=== PATIENT | female | born 1955 | race African-American/Black ===

== ENCOUNTER 2016-08-12 12:22 | Emergency (ER) | payer MEDICARE ==
[2016-07-14 09:51] VITALS: BMI 30.5
[~2016-08-12 12:22] MED LIST: ACETAMINOPHEN325 MG PO; ACIDOPHILUS LAC1 CAP PO; ALPHAGAN P 0.155 ML EACH EYE; BAYER CHEWABLE81 MG PO; BENAZEPRIL HCL10 MG PO; CHROMAGEN CAPLE1 TAB PO; COLACE100 MG PO; COREG12.5 MG PO; COREG6.25 MG; COREG6.25 MG PO; CYCLOBENZAPRINE5 MG PO; DULCOLAX5 MG PO; FARXIGA10 MG PO; FERREX 150 PLUS1 CAP PO; FUROSEMIDE20 MG PO; GLIPIZIDE10 MG PO; HUMALOG 30100 UNITS/ SC; IMITREX50 MG PO; K-DUR20 MEQ PO; K-TAB10 MEQ PO; LEVAQUIN500 MG PO; LEVEMIR100 U/M1 SC; LOTENSIN10 MG PO; LUMIGAN 0.01%2.5 ML EACH EYE; LYRICA75 MG PO; MAXZIDE 75/501 TAB PO; METOPROLOL TART50 MG PO; MIRALAX17 GM PO; MOBIC7.5 MG PO; NEURONTIN600 MG PO; NORCO 10/325 TA1 TA1 PO; NORVASC10 MG PO; NORVASC5 MG PO; NOVOLIN 70/30 110 ML SQ; OMNIPRED5 ML EACH EYE; PERCOCET 5-3251 TAB PO; PLAVIX75 MG PO; PROTONIX40 MG PO; SYSTANE 0.3-0.4%5 ML EACH EYE; TYLENOL W/CODEI1 TAB PO; VALIUM10 MG PO; VITAMIN D31000 UNIT PO; ZANTAC150 MG PO; ZOCOR40 MG PO
[2016-08-12 13:20] LABS: BASOPHILS 0.2 % (0.0-2.0); EOSINOPHILS 1.8 % (0-7); HEMATOCRIT 29.8 % (36.0-48.0); HEMOGLOBIN 9.5 g/dL (12-16); LYMPHOCYTES 47.2 % (15-50); MCH 27.2 pg (26.0-34.0); MCHC 31.9 g/dL (31.0-37.0); MCV 85.4 fL (80.0-100.0); MEAN PLATELET VOLUME 9.8 fL (7.4-10.4); MONOCYTES 5.2 % (2-11); NEUTROPHILS 45.6 % (40-80); PLATELET COUNT 270 10x3/uL (130-400); RBC 3.49 10x6/uL (4.00-5.40); RDW 14.8 % (11.5-14.5); WBC 4.4 10x3/uL (4.8-10.8)
[2016-08-12 13:34] LABS: ALBUMIN 3.3 g/dL (3.4-5.0); ANION GAP 10.1 mmol/L (8-16); BILIRUBIN - TOTAL 0.24 mg/dL (0.2-1.3); CALCIUM 9.3 mg/dL (8.5-10.1); CARBON DIOXIDE 30.3 mmol/L (21.0-32.0); CREATININE - SERUM 1.3 mg/dL (0.6-1.3); POTASSIUM - SERUM 4.4 mmol/L (3.5-5.1); PROTEIN - SERUM 6.9 g/dL (6.4-8.2)
[2016-08-12 13:44] LABS: MAGNESIUM - SERUM 2.2 mg/dL (1.8-2.4)
[2016-08-12 13:45] LABS: TROPONIN-I 0.047 ng/mL (0.000-0.060)
[2016-08-12 16:38] LABS: UDS - AMPHET NEGATIVE QUAL (NEGATIVE); UDS - BARB NEGATIVE QUAL (NEGATIVE); UDS - BENZO NEGATIVE QUAL (NEGATIVE); UDS - COCAINE NEGATIVE QUAL (NEGATIVE); UDS - METH NEGATIVE QUAL (NEGATIVE); UDS - OPIATE NEGATIVE QUAL (NEGATIVE); UDS - PCP NEGATIVE QUAL (NEGATIVE); UDS - THC NEGATIVE QUAL (NEGATIVE)
[2016-08-12 16:48] LABS: APPEARANCE CLEAR (CLEAR); BILIRUBIN NEGATIVE (NEGATIVE); COLOR YELLOW (YELLOW); GLUCOSE NEGATIVE (NEGATIVE); KETONE NEGATIVE (NEGATIVE); LEUKOCYTE ESTERASE NEGATIVE (NEGATIVE); NITRITE NEGATIVE (NEGATIVE); PROTEIN 1+ mg/dL (NEGATIVE); UROBILINOGEN NORMAL (NORMAL)
== END 2016-08-12 17:39 | disposition home or self-care (01) ==
LOC: D.ER 12:22
PROVIDERS: Emergency Medicine; Nurse Practitioner Family
DX: I10 Essential (primary) hypertension (principal); E11.9 Type 2 diabetes mellitus without complications; Z79.4 Long term (current) use of insulin; M25.511 Pain in right shoulder; G62.9 Polyneuropathy, unspecified; R00.1 Bradycardia, unspecified

== ENCOUNTER 2016-08-14 13:56 | Emergency (ER) | payer MEDICARE ==
[2016-07-14 09:51] VITALS: BMI 30.5
[2016-08-14 15:22] LABS: BASOPHILS 0.2 % (0.0-2.0); EOSINOPHILS 1.2 % (0-7); HEMATOCRIT 34.2 % (36.0-48.0); HEMOGLOBIN 10.8 g/dL (12-16); IMMATURE GRANULOCYTES 0.2 % (0-5); LYMPHOCYTES 28.4 % (15-50); MCH 27.5 pg (26.0-34.0); MCHC 31.6 g/dL (31.0-37.0); MEAN PLATELET VOLUME 10.3 fL (7.4-10.4); MONOCYTES 7.3 % (2-11); NEUTROPHILS 62.7 % (40-80); PLATELET COUNT 276 10x3/uL (130-400); RBC 3.93 10x6/uL (4.00-5.40); RDW 14.6 % (11.5-14.5); WBC 6.1 10x3/uL (4.8-10.8)
[2016-08-14 15:38] LABS: ALBUMIN 3.7 g/dL (3.4-5.0); BILIRUBIN - TOTAL 0.24 mg/dL (0.2-1.3); CALCIUM 9.6 mg/dL (8.5-10.1); CARBON DIOXIDE 29.9 mmol/L (21.0-32.0); CREATININE - SERUM 1.4 mg/dL (0.6-1.3); POTASSIUM - SERUM 3.9 mmol/L (3.5-5.1); PROTEIN - SERUM 7.7 g/dL (6.4-8.2)
[2016-08-14 15:50] LABS: TROPONIN-I 0.036 ng/mL (0.000-0.060)
[2016-08-14 15:54] LABS: APPEARANCE CLEAR (CLEAR); BILIRUBIN NEGATIVE (NEGATIVE); COLOR YELLOW (YELLOW); GLUCOSE NEGATIVE (NEGATIVE); KETONE NEGATIVE (NEGATIVE); LEUKOCYTE ESTERASE NEGATIVE (NEGATIVE); NITRITE NEGATIVE (NEGATIVE); PROTEIN TRACE mg/dL (NEGATIVE); UROBILINOGEN NORMAL (NORMAL)
== END 2016-08-14 18:20 | disposition home or self-care (01) ==
LOC: D.ER 13:56
PROVIDERS: Emergency Medicine
DX: E11.649 Type 2 diabetes mellitus with hypoglycemia without coma (principal); Z79.4 Long term (current) use of insulin; I10 Essential (primary) hypertension

== ENCOUNTER 2016-09-15 11:01 | Observation (INO) | payer MEDICARE ==
[~2016-09-15] VITALS: Ht 157.5 cm; Wt 87.0 kg
[2016-09-15 12:39] LABS: APPEARANCE CLEAR (CLEAR); BACTERIA MODERATE /hpf (NONE SEEN); BILIRUBIN NEGATIVE (NEGATIVE); COLOR YELLOW (YELLOW); EPITHELIAL CELLS 0-5 /hpf (0-5); GLUCOSE 500 mg/dL (NEGATIVE); KETONE NEGATIVE (NEGATIVE); LEUKOCYTE ESTERASE NEGATIVE (NEGATIVE); MUCUS <1+ /lpf (NONE SEEN); NITRITE NEGATIVE (NEGATIVE); PROTEIN 1+ mg/dL (NEGATIVE); RED CELLS - URINE OCC /hpf (0-5); UROBILINOGEN NORMAL (NORMAL); WHITE CELLS - URINE OCC /hpf (0-5)
[2016-09-15 13:11] LABS: BASOPHILS 0.2 % (0.0-2.0); EOSINOPHILS 1.5 % (0-7); HEMATOCRIT 31.2 % (36.0-48.0); HEMOGLOBIN 10.4 g/dL (12-16); IMMATURE GRANULOCYTES 0.4 % (0-5); KETONE - SERUM NEGATIVE (NEGATIVE); LYMPHOCYTES 39.7 % (15-50); MCH 27.8 pg (26.0-34.0); MCHC 33.3 g/dL (31.0-37.0); MCV 83.4 fL (80.0-100.0); MEAN PLATELET VOLUME 10.4 fL (7.4-10.4); MONOCYTES 8.7 % (2-11); NEUTROPHILS 49.5 % (40-80); PLATELET COUNT 313 10x3/uL (130-400); RBC 3.74 10x6/uL (4.00-5.40); RDW 14.2 % (11.5-14.5); WBC 5.2 10x3/uL (4.8-10.8)
[2016-09-15 13:29] LABS: ALBUMIN 3.5 g/dL (3.4-5.0); ALKALINE PHOSPHATASE 84 U/L (46-116); ALT (SGPT) 15 U/L (10-68); BILIRUBIN - TOTAL 0.18 mg/dL (0.2-1.3); CALC OSMOLALITY 294 mosm/kg (275-300); CALCIUM 9.2 mg/dL (8.5-10.1); CARBON DIOXIDE 32.3 mmol/L (21.0-32.0); CHLORIDE - SERUM 106 mmol/L (98-107); CREATININE - SERUM 1.5 mg/dL (0.6-1.3); GLUCOSE 126 mg/dL (74-106); POTASSIUM - SERUM 3.6 mmol/L (3.5-5.1); PROTEIN - SERUM 7.5 g/dL (6.4-8.2); SODIUM 144 mmol/L (136-145); UREA NITROGEN 28 mg/dL (7-18); eGFR NON AFRICAN AMERICAN 38 mL/min (90-120)
--- NOTE | 2016-09-15 16:20 | NUR ---
RECIEVED PATIENT VIA STRETCHER WITH MODERN AND CONTEMPORARY ART CURATOR FROM ER. WITH 4 PEOPLE ASSISTING TRANSFERED PATIENT TO THE BED USING A SLIDE BOARD. PATIENT TOLERATED WELL. GRANDDAUGHTER ARRIVED WITH PATIENT. BED IN LOWEST POSITION, CALL LIGHT IN REACH. BED RAILS UP X'S 2. PATIENT REQUESTED A GOWN. SENIOR MAINFRAME PROGRAMMER ANALYST WENT AND GOT A GOWN, AND SAID SHE WOULD ASSIST THE PATIENT GETTING CHANGED.
--- NOTE | 2016-09-15 16:27 | NUR ---
THERE IS A DIET ORDER IN FOR DINNER, PATIENT IS REQUESTING A TRAY. ADDED A COMMENT ON THE DIET ORDER TO SEND TRAY NOW. A RESTAURANT RECRUITER STATED SHE IS TAKING THE PATIENT SOME ICE-WATER. I STATED "THE PATIENT IS ASKING FOR A TRAY. I PUT IN A DIET ORDER TO SEND TRAY NOW BUT WITH IT BEING THIS CLOSE TO DINNER TIME, THEY WILL PROBABLY WAIT AND BRING HER TRAY AT DINNER TIME. DO YOU MIND ASKING THE PATIENT IF THEY WANT A SNACK? WE HAVE JELLO, PUDDING, ICE-CREAM, MIRZA CRACKERS AND PEANUT BUTTER." THE NURSING STATED STATED "YES I WILL ASK HER." THE RESTAURANT RECRUITER CAME BACK AND SAID "THE PATIENT WANTS AN ICE-CREAM AND MIRZA CRACKERS WITH PEANUT BUTTER." ASSISTED THE STUDENT GETTING THE SNACKS. THERE IS NOT ANY PEANUT BUTTER ON THE UNIT. TOLD THE STUDENT TO TAKE THE MIRZA CRACKERS AND EXPLAIN THAT THERE IS NOT ANY PEANUT BUTTER AND THEY WILL BRING TRAYS BETWEEN 5:00 AND 5:30. THE STUDENT AGREED.
--- NOTE | 2016-09-15 16:50 | NUR ---
WENT IN PATIENT'S ROOM TO DO HER V/S. GRANDDAUGHTER STATED "I NEED TO TALK TO YOU. I NEED SOMEONE TO EXPLAIN TO ME WHY WE HAVE BEEN BEING TOLD FOR HOURS WE WILL GET A TRAY BROUGHT UP AND NOW WE ARE BEING TOLD WE HAVE TO WAIT UNTIL 5:30?! I DO NOT UNDERSTAND IT MAKES NO SENSE. HER BLOOD SUGAR WAS 82 2 HOURS AGO. AND SHE HAS ONLY HAD 2 BITES OF FOOD SINCE WE HAVE BEEN HERE SINCE 1100 THIS MORNING. AND THE ER NURSE TRIED SHE HAS BEEN PUTTING IN ORDERS FOR HOURS AND WE HAVE STILL NOT GOT ANYTHING." I STATED "I DID PUT IN THE ORDER TO SEND TRAY NOW. I JUST KNOW THAT WITH IT BEING SO CLOSE TO MEAL PASS THAT THEY ARE PROBABLY GOING TO WAIT TO BRING UP THE TRAY WITH DINNER MEAL PASS. THAT IS WHY I SENT THE ELECTRONICS RESEARCH ENGINEER IN TO OFFER HER A SNACK. AND I AM ABOUT TO RECHECK HER BLOOD SUGAR." GRANDDAUGHTER STATED "I AM GLAD YOU ARE GOING TO RECHECK IT. I DO NOT UNDERSTAND WHY THEY WILL WAIT UNTIL 5:30 TO BRING UP A TRAY INSTEAD OF JUST BRINGING IT NOW." I STATED "THEY DO TRAY PASS BETWEEN 5:00 AND 5:30. AT THIS TIME THE REASON THEY DO NOT JUST BRING UP THE TRAY IS BECAUSE THEY ARE PREPARING MEALS FOR EVERY PATIENT IN THE HOSPITAL. SO WHEN IT IS GETTING CLOSE TO MEAL TIME THEY JUST WAIT TO BRING IT UP WITH THE MEAL PASS. WE DO NOT HAVE AVAILABILITY TO THE KITCHEN 22/02 AND THAT IS WHY WE HAVE SNACKS OF THE UNIT THAT ARE ALWAYS AVAILABLE." GRANDDAUGHTER STATED "[facility] DID NOT HAVE PEANUT BUTTER AND THAT IS WHAT SHE NEEDS TO BRING HER SUGAR UP."
--- NOTE | 2016-09-15 16:57 | NUR ---
FSBS 54 WENT TO [facility] TO GET PEANUT BUTTER.
--- NOTE | 2016-09-15 16:59 | NUR ---
BLOOD SUGAR 54, GAVE PATIENT 8OZ OF ORANGE JUICE AND 3 PACKAGES OF PEANUT BUTTER AND MIRZA CRACKERS.
[2016-09-15 19:52] VITALS: BP 148/74; Ht 157.5 cm; Wt 87.0 kg
[2016-09-15 20:00] VITALS: BP 158/80
--- NOTE | 2016-09-15 20:31 | NUR ---
PT RECEIVED LYING IN BED WITH EYES CLOSED. AROUSED EASILY. PLACED SCDS ON BLE. PT DENIES NEEDS. NO ACUTE DISTRESS NOTED AT THIS TIME. BED LOW. PHONE AND CALL LIGHT IN REACH. SIDE RAILS UP X2.
--- NOTE | 2016-09-15 21:54 | NUR ---
PM MEDS GIVEN. FSBS 252. ADMINISTERED 10 UNITS INSULIN HUMALOG TO ABD LUQ. PT DENIES NEEDS AT THIS TIME. BED LOW. PHONE AND CALL LIGHT IN REACH. SRX2
--- NOTE | 2016-09-15 22:35 | NUR ---
DISCUSSED LANTUS INSULIN WITH PSYCHIATRIC NURSING AIDE CONCERNING PT'S BLOOD SUGARS. PSYCHIATRIC NURSING AIDE INSTRUCTED ME TO HOLD LANTUS.
--- NOTE | 2016-09-15 23:04 | NUR ---
PT RESTING QUIETLY IN BED WATCHING TV. RESPIRATIONS EVEN NON-LABORED. NO ACUTE DISTRESS NOTED AT THIS TIME. DENIES NEEDS. BED LOW. PHONE AND CALL LIGHT IN REACH. SRX2.
[2016-09-16] VITALS: BP 150/72
--- NOTE | 2016-09-16 01:06 | NUR ---
PT RESTING QUIETLY IN BED. RESPIRATIONS EVEN, NON-LABORED. NO ACUTE DISTRESS NOTED AT THIS TIME. BED LOW. PHONE AND CALL LIGHT IN REACH. SRX2.
--- NOTE | 2016-09-16 03:50 | NUR ---
PT LYING IN BED RESTING QUIETLY WITH EYES CLOSED. NO ACUTE DISTRESS NOTED AT THIS TIME. RESPIRATION EVEN, NON-LABORED. BED LOW. PHONE AND CALL LIGHT IN REACH. SRX2.
[2016-09-16 04:00] VITALS: BP 163/72
--- NOTE | 2016-09-16 05:42 | NUR ---
PT SHOE PARTS MOLDER LIGHT. REQUESTED TO USE BED GARCIA. CHANGED PT LINENS AND GOWN AFTER USING BED GARCIA. FSBS 236.
[2016-09-16 06:07] LABS: BASOPHILS 0.2 % (0.0-2.0); EOSINOPHILS 1.2 % (0-7); HEMATOCRIT 29.7 % (36.0-48.0); HEMOGLOBIN 9.6 g/dL (12-16); IMMATURE GRANULOCYTES 0.4 % (0-5); LYMPHOCYTES 34.4 % (15-50); MCH 26.8 pg (26.0-34.0); MCHC 32.3 g/dL (31.0-37.0); MEAN PLATELET VOLUME 10.5 fL (7.4-10.4); MONOCYTES 8.1 % (2-11); NEUTROPHILS 55.7 % (40-80); PLATELET COUNT 301 10x3/uL (130-400); RBC 3.58 10x6/uL (4.00-5.40); RDW 14.2 % (11.5-14.5); WBC 5.2 10x3/uL (4.8-10.8)
[2016-09-16 06:35] LABS: ANION GAP 11.1 mmol/L (8-16); CALCIUM 9.4 mg/dL (8.5-10.1); CARBON DIOXIDE 29.8 mmol/L (21.0-32.0); CREATININE - SERUM 1.3 mg/dL (0.6-1.3); POTASSIUM - SERUM 3.9 mmol/L (3.5-5.1)
--- NOTE | 2016-09-16 06:50 | NUR ---
PT LYING IN BED RESTING WITH EYES CLOSED. AROUSED EASILY. ADMINISTERED 8 UNITS INSULIN HUMALOG TO RUQ ABD. PT DENIES NEEDS AT THIS TIME. BED LOW. PHONE AND CALL LIGHT IN REACH. SIDE RAILS UP X2.
[2016-09-16 07:44] VITALS: BP 155/78
--- NOTE | 2016-09-16 09:00 | NUR ---
ASSESSMENT PER FLOW SHEET.PT WITHOUT DISTRESS.SHE IS UP TO CHAIR WITH ASSIST OF PT.CALL LIGHT IN REACH
--- NOTE | 2016-09-16 11:30 | NUR ---
FSBS 287,INSULIN ORDERED PER MAR
[2016-09-16 12:05] VITALS: BP 111/87
--- NOTE | 2016-09-16 12:33 | NUR ---
NUTRITION MONITORING & EVAL CONSULT FOR DIABETIC DIET EDU. AFTER DISCUSSION WITH PT AND MD, PROVIDED NO CONCENTRATED SWEETS DIET GUIDELINES FOR PT AND CAREGIVER. RD FOLLOWING
[2016-09-16 15:09] VITALS: BP 153/84
--- NOTE | 2016-09-16 15:53 | NUR ---
LOTS OF VISITORS TODAY.PT REMAINS WITHOUT DISTRESS.CALL LIGHT IN REACH
--- NOTE | 2016-09-16 19:15 | NUR ---
BEDSIDE REPORT RECEIVED AND CARE OF PT ASSUMED. PT LYING IN SUPINE POSITION WATCHING TV. IV IN LEFT AC SALINE LOCKEC. WILL MONITOR CLOSLEY FOR NEEDS.
--- NOTE | 2016-09-16 19:15 | NUR ---
BEDSIDE REPORT RECEIVED AND CARE OF PT ASSUMED. PT LYING IN SUPINE POSITION WITH EYES CLOSED. IV IN LEFT AC SALINE LOCKED. WILL MONITOR CLOSELY FOR NEEDS.
[2016-09-16 20:00] VITALS: BP 156/83
--- NOTE | 2016-09-16 20:24 | NUR ---
HS MEDICATIONS GIVEN. FSBS 292 THIS CHECK REQUIRING COVERAGE WITH 16 UNITS OF INSULIN. WILL CONTINUE TO MONITOR FOR NEEDS.
--- NOTE | 2016-09-16 20:24 | NUR ---
HE MEDICATIONS GIVEN. FSBS 292 THIS CHECK REQUIRING COVERAGE WITH 16 UNITS OF INSULIN PER SLIDING SCALE. WILL CONTINUE TO MONITOR FOR NEEDS.
--- NOTE | 2016-09-16 20:45 | NUR ---
GAVE SNACK OF PEANUT BUTTER, MIRZA CRACKERS AND ICE CREAM PER PT REQUEST.
[2016-09-17] VITALS: BP 161/85
[2016-09-17 04:00] VITALS: BP 149/75
[2016-09-17 05:46] LABS: BASOPHILS 0.2 % (0.0-2.0); HEMOGLOBIN 8.8 g/dL (12-16); IMMATURE GRANULOCYTES 0.4 % (0-5); LYMPHOCYTES 39.8 % (15-50); MCH 27.1 pg (26.0-34.0); MCHC 32.6 g/dL (31.0-37.0); MCV 83.1 fL (80.0-100.0); MEAN PLATELET VOLUME 10.1 fL (7.4-10.4); NEUTROPHILS 50.6 % (40-80); PLATELET COUNT 253 10x3/uL (130-400); RBC 3.25 10x6/uL (4.00-5.40); WBC 4.6 10x3/uL (4.8-10.8)
[2016-09-17 06:35] LABS: ALBUMIN 2.7 g/dL (3.4-5.0); ANION GAP 9.2 mmol/L (8-16); BILIRUBIN - TOTAL 0.2 mg/dL (0.2-1.3); CALCIUM 8.8 mg/dL (8.5-10.1); CARBON DIOXIDE 31.4 mmol/L (21.0-32.0); CREATININE - SERUM 1.4 mg/dL (0.6-1.3); POTASSIUM - SERUM 3.6 mmol/L (3.5-5.1); PROTEIN - SERUM 6.4 g/dL (6.4-8.2)
[2016-09-17 07:57] VITALS: BP 153/90
--- NOTE | 2016-09-17 09:25 | NUR ---
SCHEDULED MEDICATIONS ADMINISTERED AT THIS TIME. PAIN 5/10, BUT DENIES NEEDING PAIN MEDICATION. AMBULATES AND SELF POSITIONS FOR COMFORT. DENIES FURTHER NEEDS AT PRESENT TIME. CALL LIGHT IN REACH, BED IN LOWEST POSITION WITH SRX2 AND WHEELS LOCKED. WILL CONTINUE WITH PLAN OF CARE. FAMILY AT BEDSIDE.
[2016-09-17 12:35] VITALS: BP 175/94
[2016-09-17] MEDS ORDERED: METOPROLOL TART50 MG PO ×2 (13:05)
[2016-09-17] MEDS ORDERED: COLACE100 MG PO (13:06)
[2016-09-17] MEDS ORDERED: LEVEMIR100 U/M1 SC ×2 (13:11→13:12)
--- NOTE | 2016-09-17 13:29 | NUR ---
Patient Name: ANGIE LOPEZ Admission Status: ER Accout number: [id number] Admission Date: 09-15-2016 : 1955 Admission Diagnosis: Attending: KRISTINA Current LOS: 2 Anticipated DC Date: 09-18-2016 Planned Disposition: Home with Home Health Primary Insurance: HUMANA CHOICE PPO MCR [facility] Discharge Planning Comments: CM MET WITH PATIENT REGARDING D/C NEEDS AND PLANS. PATIENT STATED SHE LIVES WITH HER GRANDDAUGHTER AND SHE HELPS HER 22/02. PATIENTS GRANDSON (SABRA) WILL PICK HER UP AT DISCHARGE. PATIENT HAS HELP WITH HER BATH, DRESSING, MEDS, TOILETING, AND MEDS. PATIENTS PCP IS DR. KERR AND PHARMACY IS [facility] [address]. PATIENT IS CURRENT WITH [facility] AND WILL DISCHARGE HOME WITH THEM. PATIENT DENIES ANY OTHER NEEDS AT THIS TIME. PCP DR. USHA MERCADO [facility]- [phone] SABRA (EDMUNDO) [phone] Hotel Room Attendant: Ana Peters Is the patient Alert and Oriented? Yes 0 * How many steps to enter\exit or inside your home? 0 0 * PCP DR. KERR 0 * [facility]acy [facility] * Preadmission Environment Home with Family 0 * ADLs Partial Dependent 0 * Partial ADLs (Assistance needed) Ambulation Bathing Dressing Medication Management Toileting Transfers 0 * Equipment Bedside Commode Glucometer Shower Chair Walker Wheelchair 0 * List name and contact numbers for known caregivers / representatives who currently or will assist patient after discharge: SABRA AND CHRISTIANO [phone] * Community resources currently utilized None 0 * Additional services required to return to the preadmission environment? Yes 0 * Can the patient safely return to the preadmission environment? Yes 0 * Has this patient been hospitalized within the prior 30 days at any hospital? No 0 Grand Total: 0
--- NOTE | 2016-09-17 14:09 | NUR ---
CM REASSESSMENT NOTE: PATIENT IS DISCHARGING HOME TODAY - GRANDSON DRIVING HER HOME. PATIENT IS CURRENT WITH [facility].
--- NOTE | 2016-09-17 16:50 | NUR ---
D/C HOME WITH FAMILY AT THIS TIME.
== END 2016-09-17 16:50 | disposition home or self-care (01) ==
LOC: D.ER 11:01 → D.MS 14:42 → OBSVTIME 14:42 → D.MS 14:42
PROVIDERS: Emergency Medicine; ADMIT Family Medicine
DX: E11.65 Type 2 diabetes mellitus with hyperglycemia (principal); N17.9 Acute kidney failure, unspecified; E11.22 Type 2 diabetes mellitus with diabetic chronic kidney disease; I12.9 Hypertensive chronic kidney disease with stage 1 through stage 4 chronic kidney disease, or unspecified chronic kidney disease; N18.3 Chronic kidney disease, stage 3 (moderate); D63.1 Anemia in chronic kidney disease; I25.10 Atherosclerotic heart disease of native coronary artery without angina pectoris; H40.9 Unspecified glaucoma; H54.8 Legal blindness, as defined in USA

== ENCOUNTER 2016-11-13 13:30 | Inpatient (IN) | payer MEDICARE ==
[~2016-11-13] VITALS: Ht 157.5 cm; Wt 86.8 kg
[2016-11-13 14:55] LABS: BASOPHILS 0.2 % (0.0-2.0); EOSINOPHILS 1.5 % (0-7); HEMATOCRIT 33.2 % (36.0-48.0); HEMOGLOBIN 10.8 g/dL (12-16); IMMATURE GRANULOCYTES 0.2 % (0-5); LYMPHOCYTES 40.3 % (15-50); MCH 27.1 pg (26.0-34.0); MCHC 32.5 g/dL (31.0-37.0); MCV 83.2 fL (80.0-100.0); MEAN PLATELET VOLUME 10.4 fL (7.4-10.4); MONOCYTES 4.3 % (2-11); NEUTROPHILS 53.5 % (40-80); PLATELET COUNT 262 10x3/uL (130-400); RBC 3.99 10x6/uL (4.00-5.40); RDW 13.1 % (11.5-14.5); WBC 4.6 10x3/uL (4.8-10.8)
[2016-11-13 15:26] LABS: APPEARANCE HAZY (CLEAR); BILIRUBIN NEGATIVE (NEGATIVE); COLOR YELLOW (YELLOW); GLUCOSE 250 mg/dL (NEGATIVE); KETONE NEGATIVE (NEGATIVE); LEUKOCYTE ESTERASE 1+ (NEGATIVE); NITRITE POSITIVE (NEGATIVE); PROTEIN TRACE mg/dL (NEGATIVE); UROBILINOGEN NORMAL (NORMAL)
[2016-11-13 15:27] LABS: BACTERIA MANY /hpf (NONE SEEN); EPITHELIAL CELLS OCC /hpf (0-5); RED CELLS - URINE OCC /hpf (0-5)
[2016-11-13 16:08] LABS: ALBUMIN 3.8 g/dL (3.4-5.0); ANION GAP 17.4 mmol/L (8-16); BILIRUBIN - TOTAL 0.28 mg/dL (0.2-1.3); CARBON DIOXIDE 24.6 mmol/L (21.0-32.0); CREATININE - SERUM 1.5 mg/dL (0.6-1.3)
[2016-11-13 17:15] LABS: TROPONIN-I 0.054 ng/mL (0.000-0.060)
[2016-11-13 20:00] VITALS: BP 130/76
[2016-11-13] MEDS ORDERED: KLOR-CON M1515 MEQ PO (20:59)
[2016-11-13] MEDS ORDERED: FUROSEMIDE40 MG PO (21:00)
[2016-11-13] MEDS ORDERED: NORVASC10 MG PO (21:10)
[2016-11-13] MEDS ORDERED: GLUCOTROL XL 1010 MG PO (21:11)
[2016-11-13] MEDS ORDERED: TOPROL XL50 MG PO (21:14)
[2016-11-13] MEDS ORDERED: VALIUM10 MG PO (21:14)
[2016-11-13] MEDS ORDERED: MAXZIDE 75/501 TAB PO (21:16)
[2016-11-13] MEDS ORDERED: CYCLOBENZAPRINE5 MG PO (21:17)
[2016-11-13] MEDS ORDERED: ULTRAM50 MG PO (21:20)
[2016-11-13] MEDS ORDERED: ALPHAGAN P 0.155 ML EACH EYE (22:55)
[2016-11-13] MEDS ORDERED: FLORANEX / LACT1 TAB PO (22:57)
--- NOTE | 2016-11-13 23:49 | NUR ---
BLOODSUGAR 289, COVERED WITH 6 UNITS OF HUMALOG
[2016-11-14] VITALS: BP 142/70
[2016-11-14 04:00] VITALS: BP 141/67
[2016-11-14 04:49] LABS: BASOPHILS 0.2 % (0.0-2.0); EOSINOPHILS 2.1 % (0-7); HEMOGLOBIN 10.7 g/dL (12-16); IMMATURE GRANULOCYTES 0.2 % (0-5); LYMPHOCYTES 46.7 % (15-50); MCH 26.7 pg (26.0-34.0); MCHC 32.4 g/dL (31.0-37.0); MCV 82.3 fL (80.0-100.0); MEAN PLATELET VOLUME 10.7 fL (7.4-10.4); MONOCYTES 5.2 % (2-11); NEUTROPHILS 45.6 % (40-80); PLATELET COUNT 272 10x3/uL (130-400); RBC 4.01 10x6/uL (4.00-5.40); RDW 12.9 % (11.5-14.5); WBC 4.4 10x3/uL (4.8-10.8)
[2016-11-14 05:15] LABS: ALBUMIN 3.4 g/dL (3.4-5.0); BILIRUBIN - TOTAL 0.19 mg/dL (0.2-1.3); CARBON DIOXIDE 30.2 mmol/L (21.0-32.0); CREATININE - SERUM 1.6 mg/dL (0.6-1.3); PROTEIN - SERUM 7.3 g/dL (6.4-8.2)
[2016-11-14 05:23] LABS: ANION GAP 11.4 mmol/L (8-16); POTASSIUM - SERUM 3.6 mmol/L (3.5-5.1)
--- NOTE | 2016-11-14 07:45 | NUR ---
CURTAIN WORKER AT BS ASSISTING WITH NEEDS. CALL LIGHT IN REACH. WILL CONT. PLAN OF CARE.
[2016-11-14 08:00] VITALS: BP 135/71
--- NOTE | 2016-11-14 08:27 | NUR ---
PT RESTING IN BED WITH EYES OPEN CALL LIGHT IN REACH WILL MONITER
--- NOTE | 2016-11-14 09:52 | NUR ---
Patient Name: ANGIE LOPEZ Admission Status: ER Accout number: [id number] Admission Date: 11-13-2016 : 1955 Admission Diagnosis: CHF, LE Edema Attending: DYLON Current LOS: 1 Anticipated DC Date: 11-17-2016 Planned Disposition: Home with Home Health Primary Insurance: HUMANA CHOICE PPO MCR ADVANT Discharge Planning Comments: Cm met with patient and family to complete initial discharge planning assessment. Patient gave consent to complete assessment. Patient lives at home with her grandson and caregiver. Someone is with her 22/02. She currently has [employer]. They express concerns re their agency and seem to be unhappy with the services. CM educated them that they could change agencies if they felt necessary. They verbalized understanding. They are in need for patient to have a hospital bed at discharge. CM stated we could arrange for a hospital bed if MD ordered it for her. Explained that [facility] will make the final decision regarding approval for the hospital bed. Patient plans to [place] grandson [place]. CM will continue to follow and assist with dc plan/needs. Termite Treater: Jacki Mcclure RN, [facility] [phone] Is the patient Alert and Oriented? Yes * PCP Dr. Khan * Pharmacy [facility] [address] [facility] [address] * Preadmission Environment Home with Family * ADLs Partial Dependent * Partial ADLs (Assistance needed) Bathing Medication Management Transfers * Equipment Bedside Commode Glucometer Rolling Walker Tub Bench Wheelchair * List name and contact numbers for known caregivers / representatives who currently or will assist patient after discharge: Kristie grissom - [phone] * Community resources currently utilized Home Health * Please name any agencies selected above. [facility] * Additional services required to return to the preadmission environment? Yes * Can the patient safely return to the preadmission environment? Yes * Has this patient been hospitalized within the prior 30 days at any hospital? No
[2016-11-14 12:00] VITALS: BP 144/74
[2016-11-14 12:12] VITALS: Ht 157.5 cm; Wt 86.8 kg
--- NOTE | 2016-11-14 13:44 | NUR ---
ORDER RECEIVED: order for hospital bed at home received. CM faxed order and records to [facility] who takes patient's insurance [employer]. CM spoke to Monica at [facility] who stated they would not be able to deliver on Wednesday. Informed her that there was not a dc date known at this time. Will need to call [facility] at hi so bed can be delivered. Case Management: Jacki Mcclure RN, CCM
--- NOTE | 2016-11-14 14:42 | NUR ---
PT RESTING IN BED WITH EYES OPEN CALL LIGHT IN REACH WILL MONITER
[2016-11-14 15:59] VITALS: BP 168/78
[2016-11-14 20:27] VITALS: BP 122/66
--- NOTE | 2016-11-14 22:10 | NUR ---
[facility]-369, GAVE 64 UNITS OF LEVEMIR PER ORDER
--- NOTE | 2016-11-14 23:43 | NUR ---
[facility]-355, GAVE 10 UNITS OF HUMALOG
[2016-11-15 00:04] VITALS: BP 126/64
--- NOTE | 2016-11-15 02:11 | NUR ---
PT RESTING WELL WITHOUT C/O OR DISTRESS NOTED. CALL LIGHT WITHIN REACH. NO NEEDS VOICED. WILL MONITOR.
--- NOTE | 2016-11-15 03:25 | NUR ---
ASSESSMENT COMPLETE, PT SLEEPING, BED IS LOW, SRX2, ALARM IS ON, SCD ARE ON, CALL LIGHT IN REACH, WILL CONTINUE TO MONITOR
[2016-11-15 04:39] VITALS: BP 109/58
--- NOTE | 2016-11-15 07:49 | NUR ---
PATIENT RESTING IN BED. ALERT/ORIENT X4. OXYGEN ON AT 2L PER N/C. PATIENT IS LEGALLY BLIND. TWO PERSON ASST WITH TRANSFERS. CALL LIGHT WITHIN REACH. VOICES NO NEEDS AT THIS TIME
[2016-11-15 08:00] VITALS: BP 129/76
[2016-11-15 08:07] LABS: BASOPHILS 0.2 % (0.0-2.0); EOSINOPHILS 1.7 % (0-7); HEMOGLOBIN 12.3 g/dL (12-16); IMMATURE GRANULOCYTES 0.2 % (0-5); LYMPHOCYTES 49.4 % (15-50); MCHC 33.2 g/dL (31.0-37.0); MCV 81.3 fL (80.0-100.0); MEAN PLATELET VOLUME 10.9 fL (7.4-10.4); MONOCYTES 6.2 % (2-11); NEUTROPHILS 42.3 % (40-80); PLATELET COUNT 296 10x3/uL (130-400); RBC 4.55 10x6/uL (4.00-5.40); RDW 13.1 % (11.5-14.5); WBC 4.8 10x3/uL (4.8-10.8)
[2016-11-15 08:11] LABS: ALBUMIN 3.9 g/dL (3.4-5.0); ANION GAP 13.8 mmol/L (8-16); BILIRUBIN - TOTAL 0.28 mg/dL (0.2-1.3); CALCIUM 10.2 mg/dL (8.5-10.1); CARBON DIOXIDE 30.7 mmol/L (21.0-32.0); CREATININE - SERUM 1.9 mg/dL (0.6-1.3); POTASSIUM - SERUM 3.5 mmol/L (3.5-5.1); PROTEIN - SERUM 8.8 g/dL (6.4-8.2)
--- NOTE | 2016-11-15 10:42 | NUR ---
METOPROLOL NOT GIVEN ON TIME DUE TO UNAVAILABLE FROM PHARMACY
[2016-11-15 11:25] VITALS: BP 104/67
--- NOTE | 2016-11-15 11:45 | NUR ---
GLUCOSE LEVEL 395. TEN UNITS OF SLIDING SCALE INSULIN GIVEN
--- NOTE | 2016-11-15 12:34 | NUR ---
RESTS WITH EYES CLOSED. CALL LIGHT IN REACH. WILL MONITOR NEEDS.
[2016-11-15 15:50] VITALS: BP 122/73
--- NOTE | 2016-11-15 16:12 | NUR ---
PATIENT RESTING WELL IN BED. ON CELL PHONE. VOICES NO NEEDS. CALL LIGHT WITHIN REACH
--- NOTE | 2016-11-15 16:59 | NUR ---
GLUCOSE LEVEL 312. EIGHT UNITS OF SLIDING SCALE INSULIN GIVEN
--- NOTE | 2016-11-15 19:42 | NUR ---
ASSESSMENT DONE. PT SITTING UP IN BED EATING SHERBET. A/O X3. NO DISTRESS NOTED. FAMILY AT BEDSIDE. PT DENIES NEEDS AT THIS TIME. CALL LIGHT WITH IN REACH. WILL CONT. TO MONITOR.
[2016-11-15 20:48] VITALS: BP 122/68
--- NOTE | 2016-11-15 23:37 | NUR ---
PT'S FSBS 455. PT HAS BEEN LAYING IN BED EATING CRACKERS AND ICECREAM. TREATED WITH SS HUMALOG. WILL CONT. TO MONITOR.
[2016-11-16 00:30] VITALS: BP 125/67
--- NOTE | 2016-11-16 02:15 | NUR ---
PT SLEEPING. EYES CLOSED. RESP UNLABORED. APPEARS COMFORTABLE. HOB ELEVATED. CALL LIGHT WITH IN REACH. BED ALARM ON. WILL CONT. TO MONITOR.
--- NOTE | 2016-11-16 02:52 | NUR ---
PT SLEEPING. EYES CLOSED. RESP EVEN AND UNLABORED. HOB ELEVATED. APPEARS COMFORTABLE. NO DISTRESS NOTED. CALL LIGHT RESTING ON PT'S CHEST. BED ALARM ON. WILL CONT. TO MONITOR.
--- NOTE | 2016-11-16 03:14 | NUR ---
LATEX DIPPER AT BEDSIDE FOR VS, NEEDS ADDRESSED. CALL LIGHT IN REACH. WILL CONT TO MONITOR.
[2016-11-16 04:30] VITALS: BP 124/71
--- NOTE | 2016-11-16 05:49 | NUR ---
NURSE AND FURNITURE SALES ASSOCIATE ASSISTED PT TO BSC AND BACK TO BAD. PT A/O. REQUEST ICE WATER TO DRINK. NO DISTRESS NOTED. CALL LIGHT WITH IN REACH. WILL CONT. TO MONITOR.
[2016-11-16 06:35] LABS: BASOPHILS 0.2 % (0.0-2.0); EOSINOPHILS 1.9 % (0-7); HEMATOCRIT 32.6 % (36.0-48.0); HEMOGLOBIN 10.7 g/dL (12-16); IMMATURE GRANULOCYTES 0.2 % (0-5); LYMPHOCYTES 39.9 % (15-50); MCH 27.1 pg (26.0-34.0); MCHC 32.8 g/dL (31.0-37.0); MCV 82.5 fL (80.0-100.0); MEAN PLATELET VOLUME 10.6 fL (7.4-10.4); NEUTROPHILS 52.8 % (40-80); PLATELET COUNT 262 10x3/uL (130-400); RBC 3.95 10x6/uL (4.00-5.40); RDW 12.7 % (11.5-14.5); WBC 5.2 10x3/uL (4.8-10.8)
[2016-11-16 06:49] LABS: ALBUMIN 3.3 g/dL (3.4-5.0); BILIRUBIN - TOTAL 0.15 mg/dL (0.2-1.3); CALCIUM 8.5 mg/dL (8.5-10.1); CARBON DIOXIDE 29.9 mmol/L (21.0-32.0); POTASSIUM - SERUM 3.9 mmol/L (3.5-5.1); PROTEIN - SERUM 7.2 g/dL (6.4-8.2)
[2016-11-16 06:52] LABS: CREATININE - SERUM 2.7 mg/dL (0.6-1.3)
--- NOTE | 2016-11-16 07:53 | NUR ---
AM ROUNDS - PT IN SLEEPING ON LEFT SIDE. BREATHS ARE EUAL AND NON LABORED. SCD ON, 2L O2 VIA NC, RIGHT WRIST THAT IS SL. BED ALARM ON. WILL CONTINUE TO MONITOR
[2016-11-16 08:00] VITALS: BP 118/57
[2016-11-16 12:00] VITALS: BP 123/66
--- NOTE | 2016-11-16 15:39 | NUR ---
Patient Name: ANGIE LOPEZ Encounter No: [id number] : 1955 Primary Insurance: HUMANA CHOICE PPO MCR ADVANT Anticipated DC Date: 11-17-2016 Planned Disposition: Half-Way Facility External Planned Provider: [facility], MEDICARE REHAB BED DCP follow-up note: CM RECEIVED CALL FROM PT'S FAMILY REQUESTING THAT PT RECEIVE REHAB AT [facility] TO ENSURE THAT CM WAS WORKING ON GETTING PT A HOSPITAL BED. CM SPOKE TO RN JOS MUÑIZ IN EMERGENCY ROOM VIA PHONE, WHO REPORTED SHE HAS SENT REFERRAL FOR HOME HOSPITAL BED TO ANA LUISA AT [facility] WHO WILL WORK WITH FAMILY TO COORDINATE DELIVERY ONCE APPROVED BY INSURANCE. JOS SPOKE TO PT IN ROOM REGARDING DISCHARGE NEEDS, DISCUSSED MEDICAL EQUIPMENT, REHAB SERVICES AND MEDICAL EQUIPMENT. PT WOULD LIKE TO BE REFERRED TO [facility] FOR REHAB SERVICES BEFORE RETURNING HOME WITH [facility]. CHOICE SIGNED, IMPORTANT MESSAGE FROM MEDICARE PROVIDED AND DISCUSSED. JOS SPOKE TO HARRY, CLINICAL LIAISON FOR [place], WHO WILL FORWARD REFERRAL FOR REHAB SCREENING AT [facility]. CM FAXED REFERRAL TO HARRY AT [phone]. JOS WAITING ADMISSION DETERMINATION AND INSURANCE AUTHORIZATION FOR REHAB AT [facility] AND [facility]. Chaitanya Anand, CASE MANAGEMENT
--- NOTE | 2016-11-16 21:16 | NUR ---
PT LYING IN BED, EYES CLOSED, RESPIRATIONS EVEN AND UNLABORED. PT EASILY ROUSABLE TO VERBAL STIMULI, ASSISTED X 2 TO BEDSIDE COMMODE. PT IS LEGALLY BLIND AND A MODERATE TO MAX ASSIST. PT DENIES ANY OTHER NEEDS. CONTINUE TO MONITOR CLOSELY. BED LOW, CALL LIGHT IN REACH, SIDE RAILS X 2, HOB 30 DEGREES. BED ALARM ON.
[2016-11-16 22:46] VITALS: BP 134/73
[2016-11-17 02:33] VITALS: BP 116/56
--- NOTE | 2016-11-17 05:00 | NUR ---
PT LYING IN BED, EYES CLOSED, RESPIRATIONS EVEN AND UNLABORED. PT EASILY ROUSABLE TO VERBAL STIMULI. CONTINUE TO MONITOR CLOSELY. BED ALARM ON.
[2016-11-17 06:08] LABS: BASOPHILS 0.2 % (0.0-2.0); HEMATOCRIT 31.5 % (36.0-48.0); HEMOGLOBIN 10.4 g/dL (12-16); IMMATURE GRANULOCYTES 0.2 % (0-5); LYMPHOCYTES 37.5 % (15-50); MCH 26.9 pg (26.0-34.0); MCV 81.4 fL (80.0-100.0); MEAN PLATELET VOLUME 10.7 fL (7.4-10.4); MONOCYTES 7.5 % (2-11); NEUTROPHILS 52.6 % (40-80); PLATELET COUNT 267 10x3/uL (130-400); RBC 3.87 10x6/uL (4.00-5.40); RDW 12.8 % (11.5-14.5); WBC 5.5 10x3/uL (4.8-10.8)
[2016-11-17 06:37] VITALS: BP 129/69
[2016-11-17 06:54] LABS: ALBUMIN 3.2 g/dL (3.4-5.0); ANION GAP 9.8 mmol/L (8-16); BILIRUBIN - TOTAL 0.1 mg/dL (0.2-1.3); CALCIUM 9.1 mg/dL (8.5-10.1); CARBON DIOXIDE 31.5 mmol/L (21.0-32.0); CREATININE - SERUM 2.5 mg/dL (0.6-1.3); POTASSIUM - SERUM 4.3 mmol/L (3.5-5.1); PROTEIN - SERUM 6.9 g/dL (6.4-8.2)
--- NOTE | 2016-11-17 07:58 | NUR ---
AM ROUNDS - PT APPEARS TO BE SLEEPING WITH RESPIRATIONS EQUAL AND NON LABORED. IV TO RIGHT WRIST, SL. SCD ON AND WORKING. WILL CONTINUE TO MONITOR.
[2016-11-17 08:02] VITALS: BP 127/71
--- NOTE | 2016-11-17 10:55 | NUR ---
UP TO CHAIR PER THERAPY.
--- NOTE | 2016-11-17 11:27 | NUR ---
250 CC NS BOLUS HUNG ORDERED.
[2016-11-17 12:04] VITALS: BP 137/70
--- NOTE | 2016-11-17 12:33 | NUR ---
SITTING UP IN CHAIR PAST EATING LUNCH. DENIES NEEDS AT PRESENT TIME, CALL LIGHT AT SIDE. WILL CONTINUE TO MONITOR.
--- NOTE | 2016-11-17 12:58 | NUR ---
STILL IN CHAIR, BED LINENS CHANGED.
--- NOTE | 2016-11-17 13:04 | NUR ---
Patient Name: ANGIE LOPEZ Encounter No: [id number] : 1955 Primary Insurance: HUMANA CHOICE PPO MCR ADVANT Anticipated DC Date: 11-17-2016 Planned Disposition: Retirement Facility External Planned Provider: [facility], MEDICARE REHAB BED DCP follow-up note: CM RECEIVED CALL FROM HARRY OF [facility], INSURANCE HAS APPROVED PT FOR REHAB TODAY. HARRY HAS NOTIFIED PT. CM SPOKE TO PT IN ROOM WHO IS IN AGREEMENT WITH TRANSFER TO [facility] TODAY FOR REHAB SERVICES. CM NOTIFIED ONOFRE WARNER. CM CALLED [facility], SPOKE TO KIMBERLY, NOTIFIED OF PT'S DISCHARGE TO [facility] TODAY. FOR DISCHARGE, FAX DISCHARGE INFORMATION TO DIANNA AT [phone]. NURSE REPORT TO BE CALLED TO DIANNA AT [phone]. DIANNA VAN TO INSIDE SALES RECRUITER PT AT AROUND 1500 HOURS TODAY. Chaitanya Anand, CASE MANAGEMENT
--- NOTE | 2016-11-17 15:25 | NUR ---
Patient Name: ANGIE LOPEZ Encounter No: [id number] : 1955 Primary Insurance: HUMANA CHOICE PPO MCR ADVANT Anticipated DC Date: 11-17-2016 Planned Disposition: Mcfp Facility External Planned Provider: [facility], MEDICARE REHAB BED DCP follow-up note: FAXED DISCHARGE INFORMATION TO [facility], AND TO DIANNA AT [phone]. NO FURTHER DISCHARGE NEEDS NOTED. Chaitanya Anand, CASE MANAGEMENT
--- NOTE | 2016-11-17 15:39 | NUR ---
SALINE LOCK REMOVED WITH CATH TIP INTACT. VERBAL AND WRITTEN DISCHARGE INSTRUCTIONS GIVEN TO PATIENT, SHE IS UNABLE TO SIGN SHE IS BLIND. WILL AWAIT WHEELCHAIR FROM [facility] FOR DISCHARGE.
--- NOTE | 2016-11-17 15:57 | NUR ---
DISCHARGED TO [facility] VIA WHEELCHAIR.
== END 2016-11-17 16:00 | DRG 292 ==
LOC: D.ER 13:30 → D.M2 17:20
PROVIDERS: Emergency Medicine; ADMIT Emergency Medicine
DX: I13.0 Hypertensive heart and chronic kidney disease with heart failure and stage 1 through stage 4 chronic kidney disease, or unspecified chronic kidney disease (principal); N17.9 Acute kidney failure, unspecified; N39.0 Urinary tract infection, site not specified; E11.22 Type 2 diabetes mellitus with diabetic chronic kidney disease; E11.65 Type 2 diabetes mellitus with hyperglycemia; N18.3 Chronic kidney disease, stage 3 (moderate); I50.9 Heart failure, unspecified; E87.5 Hyperkalemia; K52.9 Noninfective gastroenteritis and colitis, unspecified; I25.10 Atherosclerotic heart disease of native coronary artery without angina pectoris; D50.9 Iron deficiency anemia, unspecified; D63.1 Anemia in chronic kidney disease; M54.12 Radiculopathy, cervical region; M54.16 Radiculopathy, lumbar region; H40.9 Unspecified glaucoma; F41.9 Anxiety disorder, unspecified; F32.9 Major depressive disorder, single episode, unspecified; E11.40 Type 2 diabetes mellitus with diabetic neuropathy, unspecified; Z91.11 Patient's noncompliance with dietary regimen

== ENCOUNTER 2016-12-21 09:37 | Observation (INO) | payer MEDICARE ==
[~2016-12-21] VITALS: Ht 157.5 cm; Wt 90.9 kg
[~2016-12-21 09:37] MED LIST changes: +FLORANEX / LACT1 TAB PO; +FUROSEMIDE40 MG PO; +GLUCOTROL XL 1010 MG PO; +KLOR-CON M1515 MEQ PO; +TOPROL XL50 MG PO; +ULTRAM50 MG PO
[2016-12-21 10:37] LABS: BASOPHILS 0.2 % (0-2); EOSINOPHILS 5.1 % (0-7); HEMATOCRIT 32.6 % (36.0-48.0); HEMOGLOBIN 10.4 g/dL (12-16); IMMATURE GRANULOCYTES 0.2 % (0-5); LYMPHOCYTES 37.1 % (15-50); MCH 26.4 pg (26.0-34.0); MCHC 31.9 g/dL (31.0-37.0); MCV 82.7 fL (80.0-100.0); MEAN PLATELET VOLUME 9.4 fL (7.4-10.4); NEUTROPHILS 51.4 % (40-80); PLATELET COUNT 311 10x3/uL (130-400); RBC 3.94 10x6/uL (4.00-5.40); RDW 14.1 % (11.5-14.5); WBC 5.5 10x3/uL (4.8-10.8)
[2016-12-21 10:57] LABS: ALBUMIN 3.4 g/dL (3.4-5.0); ANION GAP 12.1 mmol/L (8-16); BILIRUBIN - TOTAL 0.15 mg/dL (0.2-1.3); CALCIUM 9.5 mg/dL (8.5-10.1); CARBON DIOXIDE 31.1 mmol/L (21.0-32.0); CREATININE - SERUM 2.5 mg/dL (0.6-1.3); POTASSIUM - SERUM 4.2 mmol/L (3.5-5.1); PROTEIN - SERUM 8.5 g/dL (6.4-8.2)
[2016-12-21 11:55] LABS: APPEARANCE CLOUDY (CLEAR); BILIRUBIN NEGATIVE (NEGATIVE); COLOR YELLOW (YELLOW); GLUCOSE NEGATIVE (NEGATIVE); KETONE NEGATIVE (NEGATIVE); LEUKOCYTE ESTERASE 1+ (NEGATIVE); NITRITE NEGATIVE (NEGATIVE); PROTEIN 2+ mg/dL (NEGATIVE); SPECIFIC GRAVITY 1.015 (1.005-1.020); UROBILINOGEN NORMAL (NORMAL)
[2016-12-21 11:57] LABS: BACTERIA MANY /hpf (NONE SEEN); EPITHELIAL CELLS 0-5 /hpf (0-5); RED CELLS - URINE 0-5 /hpf (0-5)
[2016-12-21 16:59] LABS: UDS - AMPHET NEGATIVE QUAL (NEGATIVE); UDS - BARB NEGATIVE QUAL (NEGATIVE); UDS - BENZO POSITIVE QUAL (NEGATIVE); UDS - COCAINE NEGATIVE QUAL (NEGATIVE); UDS - METH NEGATIVE QUAL (NEGATIVE); UDS - OPIATE NEGATIVE QUAL (NEGATIVE); UDS - PCP NEGATIVE QUAL (NEGATIVE); UDS - THC NEGATIVE QUAL (NEGATIVE)
--- NOTE | 2016-12-21 19:33 | NUR ---
PT ARRIVED VIA STRETCHER, AWAKE, ALERT, ORIENTED, C/O BILATERAL FOOT PAIN, SWELLING, ACID REFLUX AND WANTING SOMETHING FOR REFLUX. PT DENIES ANY OTHER ACUTE NEEDS. WILL CONTINUE TO MONITOR CLOSELY. BED LOW, CALL LIGHT IN REACH, SIDE RAILS X 2, HOB 30 DEGREES. WILL PROVIDE BEDSIDE COMMODE FOR PTS SAFETY.
[2016-12-21 21:42] VITALS: BP 140/77
[2016-12-21 23:39] VITALS: BP 125/75
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
[2016-12-22 04:01] VITALS: BP 109/58
[2016-12-22 05:49] VITALS: BP 140/77; Ht 157.5 cm; Wt 90.9 kg
[2016-12-22 08:24] VITALS: BP 140/80
[2016-12-22 09:05] LABS: BASOPHILS 0.2 % (0-2); EOSINOPHILS 4.4 % (0-7); HEMATOCRIT 37.7 % (36.0-48.0); HEMOGLOBIN 11.7 g/dL (12-16); IMMATURE GRANULOCYTES 0.2 % (0-5); LYMPHOCYTES 48.9 % (15-50); MCH 26.2 pg (26.0-34.0); MCV 84.3 fL (80.0-100.0); MEAN PLATELET VOLUME 10.2 fL (7.4-10.4); MONOCYTES 6.3 % (2-11); PLATELET COUNT 344 10x3/uL (130-400); RBC 4.47 10x6/uL (4.00-5.40); WBC 5.9 10x3/uL (4.8-10.8)
--- NOTE | 2016-12-22 09:08 | NUR ---
PT REFUSED SCDS R/T EXCRUIATING BILAT LEG PAIN.
[2016-12-22 09:15] LABS: ANION GAP 14.6 mmol/L (8-16); CALCIUM 10.3 mg/dL (8.5-10.1); CARBON DIOXIDE 31.1 mmol/L (21.0-32.0); CREATININE - SERUM 2.2 mg/dL (0.6-1.3); POTASSIUM - SERUM 4.7 mmol/L (3.5-5.1)
--- NOTE | 2016-12-22 10:48 | NUR ---
KHADRA & PAL KING CAREGIVER [phone]
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
[2016-12-22 12:01] VITALS: BP 146/87
--- NOTE | 2016-12-22 13:34 | NUR ---
12/22/2016 13:24 DCP: Discharge Planning Spoke with Thuy @ [facility] - they will resume home health services & will send a social work administrator to evaluate her living situation.
--- NOTE | 2016-12-22 14:23 | NUR ---
PT NEEDING TO USE BR. COMPLETELY FILLED UP BEDPAN AND WET BED WELL. COMPLETE BED CHANGE PROVIDED. PT IS GOING TO BE DISCHARGED LATER TODAY AND WILL GET HOME OXYGEN. PT IS CONCERNED ABOUT HER "SWELLING" HOWEVER HER FEET ARE REALLY SWOLLEN. TEACHING PROVIDED ON TAKING HOME MEDS PERSCRIBED AND CHF. PT VERBALIZED RELIEF AND UNDERSTANDING AND STATES SHE JUST HOPES TO STAY WELL. PT DENIES ANY FURTHER NEEDS AT THIS TIME. CL IN REACH, BED IN LOWEST, SIDE RAILS X2. WILL CTM.
--- NOTE | 2016-12-22 15:16 | NUR ---
D/C PTS L.UPPER ARM PIV WITH CATHETER TIP FULLY INTACT. DISCHARGE TEACHING PROVIDED AND PAPERS SIGNED PER CAREGIVER. PT GATHERING BELONGINGS AND READY TO BE DISCHARGED.
== END 2016-12-22 16:02 | disposition home or self-care (01) ==
LOC: D.ER 09:37 → D.M2 18:00 → OBSVTIME 18:00 → D.M2 18:00
PROVIDERS: Emergency Medicine Emergency Medical Services; Physician Assistant; ADMIT Family Medicine
DX: I13.0 Hypertensive heart and chronic kidney disease with heart failure and stage 1 through stage 4 chronic kidney disease, or unspecified chronic kidney disease (principal); I50.9 Heart failure, unspecified; N18.3 Chronic kidney disease, stage 3 (moderate); E11.22 Type 2 diabetes mellitus with diabetic chronic kidney disease; E11.65 Type 2 diabetes mellitus with hyperglycemia; E87.5 Hyperkalemia; I25.10 Atherosclerotic heart disease of native coronary artery without angina pectoris; N39.0 Urinary tract infection, site not specified; D50.9 Iron deficiency anemia, unspecified; N17.9 Acute kidney failure, unspecified; H40.9 Unspecified glaucoma; M54.16 Radiculopathy, lumbar region; M54.12 Radiculopathy, cervical region; F32.9 Major depressive disorder, single episode, unspecified; F41.9 Anxiety disorder, unspecified

== ENCOUNTER 2017-06-28 14:13 | Inpatient (IN) | payer MEDICARE ==
[~2017-06-28] VITALS: Ht 157.5 cm; Wt 82.6 kg
[2017-06-28 14:59] LABS: BASOPHILS 0.2 % (0-2); EOSINOPHILS 2.2 % (0-7); HEMOGLOBIN 11.3 g/dL (12-16); IMMATURE GRANULOCYTES 0.2 % (0-5); LYMPHOCYTES 41.3 % (15-50); MCH 26.8 pg (26.0-34.0); MCHC 33.2 g/dL (31.0-37.0); MCV 80.6 fL (80.0-100.0); MEAN PLATELET VOLUME 10.7 fL (7.4-10.4); MONOCYTES 5.4 % (2-11); NEUTROPHILS 50.7 % (40-80); RBC 4.22 10x6/uL (4.00-5.40); RDW 13.7 % (11.5-14.5); WBC 5.9 10x3/uL (4.8-10.8)
[2017-06-28 15:05] LABS: PLATELET COUNT 273 10x3/uL (130-400)
[2017-06-28 15:21] LABS: ALBUMIN 3.5 g/dL (3.4-5.0); ANION GAP 12.2 mmol/L (8-16); BILIRUBIN - TOTAL 0.11 mg/dL (0.2-1.3); CALCIUM 9.5 mg/dL (8.5-10.1); CARBON DIOXIDE 29.8 mmol/L (21.0-32.0); CREATININE - SERUM 1.7 mg/dL (0.6-1.3); PROTEIN - SERUM 7.5 g/dL (6.4-8.2)
[2017-06-28 15:38] LABS: APPEARANCE TURBID (CLEAR); BILIRUBIN NEGATIVE (NEGATIVE); COLOR RED (YELLOW); GLUCOSE NEGATIVE (NEGATIVE); KETONE NEGATIVE (NEGATIVE); NITRITE NEGATIVE (NEGATIVE); PROTEIN 2+ mg/dL (NEGATIVE); SPECIFIC GRAVITY 1.015 (1.005-1.020); UROBILINOGEN NORMAL (NORMAL)
[2017-06-28 15:39] LABS: BACTERIA MODERATE /hpf (NONE SEEN); EPITHELIAL CELLS 0-5 /hpf (0-5); RED CELLS - URINE >50 /hpf (0-5)
[2017-06-28 21:17] VITALS: BP 154/89
--- NOTE | 2017-06-28 22:30 | NUR ---
PT ADMITTED FROM THE ER/ WITH GASEOUS CYSTITTIS AND HEMATURIA. PT WAS LIVING WITH HER DAUGHTER (WHO IS A NURSE) IN [place], [place], BUT THEY RECENTLY HAD A FALLING OUT AND SHE LEFT AND CAME TO STAY WITH RELATIVE HERE IN [place]. THE PATIENT BECAME VERY ILL, PARTLY BECAUSE SHE HAS NOT BEEN TAKING ALL OF HER CORRECT MEDICATIONS. NO ONE HAS BEEN ABLE TO GET IN TOUCH WITH THE PT'S PRIMARY DIE REPAIRER TRIMMER DIES IN [place], HER DAUGHTER. HER GRANDSON GRACE AND GRANDDAUGHTER CHRISTIANO ARE PRESENT WITH HER IN THE ROOM. THE PT'S SISTER IS ALSO INVOLVED IN HER D/C PLANNING WELL. THEY ARE LOOKING FOR SHORT TERM REHAB PLACEMENT AT D/C SO SHE CAN GET STRONGER B/C SHE IS SO WEAK. THEY DON'T THINK THEY WILL BE ABLE TO TAKE HER HOME UNTIL SHE GETS STRONGER. PT IS ACTIVELY VOMITTING SHE COMES TO THE FLOOR. SHE IS CLEANED UP, GIVEN EMESIS BAGS. PT ALSO W/ C/O SEVERE ITCHING WELL. WILL CALL [facility] FOR ORDERS.
--- NOTE | 2017-06-28 23:45 | NUR ---
CALLED [facility] AND RECEIVED ORDERS FOR IV ZOFRAN PRN AND IV BENADRYL PRN. MEDICATED PATIENT WITH GOOD RESULTS. PT SLEEPING COMFORTABLY.
[2017-06-29 03:47] VITALS: BP 136/84
--- NOTE | 2017-06-29 07:10 | NUR ---
RECEIVED REPORT. ASSUMED CARE OF PATIENT. CALL LIGHT WITHIN REACH. RESTING IN BED WITH EYES OPEN. COMPLAINS OF ITCHING. SKIN IS EXTREMLY DRY AND ASHEY. NO OTHER COMPLAINTS VOISED. NO DISTRESS.
[2017-06-29 08:00] VITALS: BP 126/72
[2017-06-29 10:40] VITALS: BMI 32.9
--- NOTE | 2017-06-29 10:41 | NUR ---
SCDS APPLIED TO BILATERAL LOWER EXTREMITIES AFTER APPLYING LOTION TO PATIENT. PATIENT ITCHY AND VERY ASHY.
[2017-06-29 12:00] VITALS: BP 155/79
[2017-06-29 13:44] LABS: BASOPHILS 0.2 % (0-2); EOSINOPHILS 1.8 % (0-7); HEMATOCRIT 31.1 % (36.0-48.0); LYMPHOCYTES 34.9 % (15-50); MCH 26.5 pg (26.0-34.0); MCHC 32.2 g/dL (31.0-37.0); MCV 82.3 fL (80.0-100.0); MONOCYTES 6.5 % (2-11); NEUTROPHILS 56.6 % (40-80); PLATELET COUNT 227 10x3/uL (130-400); RBC 3.78 10x6/uL (4.00-5.40); WBC 5.6 10x3/uL (4.8-10.8)
[2017-06-29 13:57] LABS: ANION GAP 11.5 mmol/L (8-16); CALCIUM 8.4 mg/dL (8.5-10.1); CARBON DIOXIDE 29.1 mmol/L (21.0-32.0); CREATININE - SERUM 1.8 mg/dL (0.6-1.3)
[2017-06-29 14:03] LABS: POTASSIUM - SERUM 3.6 mmol/L (3.5-5.1)
--- NOTE | 2017-06-29 15:57 | NUR ---
Rehab Prescreening Consult recieved and the chart has been reviewed. She is [employer] and will require a preauth for rehab. She also has several evals pending that will be required by [facility]. Once all is completed the info will be submitted to [facility] for approval. Chasity Appiah RN Clinical Liaison, Rehab
[2017-06-29 16:00] VITALS: BP 153/79
--- NOTE | 2017-06-29 16:26 | NUR ---
Patient Name: ANGIE LOPEZ Admission Status: ER Accout number: [id number] Admission Date: 06-28-2017 : 1955 Admission Diagnosis: Attending: GIRMA, Current LOS: 1 Anticipated DC Date: 07-01-2017 Planned Disposition: Inpatient Rehab Primary Insurance: [employer] CHOICE PPO MCR ADVANT PLANNED EXTERNAL PROVIDER: [facility] INPATIENT REHAB Discharge Planning Comments: * Is the patient Alert and Oriented? Yes 0 * How many steps to enter\exit or inside your home? 2 0 * PCP NONE 0 * Pharmacy [facility] - UNKNOWN LOCATION 0 * Preadmission Environment Home Alone 0 * ADLs Partial Dependent 0 * Partial ADLs (Assistance needed) Medication Management 0 * Equipment Cane Glucometer Oxygen Walker Wheelchair 0 * Other Equipment ELECTRIC AND MANUAL WHEELCHAIR HOME AND PORTABLE OXYGEN UNKNOWN MEDICAL EQUIPMENT PROVIDER IN [place] 0 * List name and contact numbers for known caregivers / representatives who currently or will assist patient after discharge: JENNIFER DOZIER, MOTHER, 0 * Community resources currently utilized None 0 * Please name any agencies selected above. NONE 0 * Additional services required to return to the preadmission environment? Yes * Can the patient safely return to the preadmission environment? Yes 0 * Has this patient been hospitalized within the prior 30 days at any hospital? No 0 CM RECEIVED ORDER FOR INPATIENT REHAB PRESCREENING. CM MET WITH PT IN ROOM TO DISCUSS DISCHARGE PLANNING AND NEEDS. PT REPORTS LIVING AT HOME INDEPENDENTLY WITH HER ADULT DAUGHTER IN [place] BUT DECIDED SHE WANTED TO MOVE BACK TO [place] AND HER DAUGHTER BROUGHT HER BACK TO HER MOTHER'S HOME WHERE NO ONE IS LIVING; PT REPORTS SHE CANNOT LIVE THERE BY HERSELF. PT REPORTS SHE CANNOT STAY WITH HER GRANDSON IN [facility] BECAUSE HIS WIRING ON HIS HOME BURNT AND HE IS WORKING ON IT. PT REPORTS SHE MAY HAVE TO GO BACK TO [place] WITH HER DAUGHTER OR TRY TO GET HERSELF INTO NURSING HOME CARE IN A PENITENTIARY, [facility] WOULD BE HER CHOICE IF NEEDED. PT HAS ALL NEEDED MEDICAL EQUIPMENT FROM UNKNOWN PROVIDER IN [place]. PT HAS NO OUTSIDE SERVICES ASSISTING IN THE HOME. CM DISCUSSED AVAILABILITY OF HOME HEALTH, REHAB SERVICES AND MEDICAL EQUIPMENT. PT WOULD LIKE REHAB AT [facility] IF INSURANCE WILL PAY FOR IT, [facility] FOR REHAB IF INSURANCE WILL NOT APPROVE INPATIENT; CHOICE SIGNED FOR [facility]; PT REPORTS HER FAMILY WILL PICK HER UP FOR DISCHARGE HOME. IMPORTANT MESSAGE FROM MEDICARE PROVIDED AND EXPLAINED. CM WAITING THERAPY EVALUATIONS AND INPATIENT REHAB PRESCREENING RESULTS. Certified Medication Technician: Chaitanya Anand
--- NOTE | 2017-06-29 17:54 | NUR ---
NEW TELEMETRY PADS APPLIED. FAMILY AT BEDSIDE. NO DISTRESS. CALL LIGHT WITHIN REACH.
[2017-06-29 21:38] VITALS: BP 174/94
[2017-06-30 00:37] VITALS: BP 145/89
[2017-06-30 04:53] VITALS: BP 168/97
[2017-06-30 06:16] LABS: BASOPHILS 0.2 % (0-2); EOSINOPHILS 2.1 % (0-7); HEMATOCRIT 30.7 % (36.0-48.0); HEMOGLOBIN 9.9 g/dL (12-16); IMMATURE GRANULOCYTES 0.2 % (0-5); LYMPHOCYTES 30.4 % (15-50); MCH 26.5 pg (26.0-34.0); MCHC 32.2 g/dL (31.0-37.0); MCV 82.1 fL (80.0-100.0); MEAN PLATELET VOLUME 11.3 fL (7.4-10.4); MONOCYTES 6.3 % (2-11); NEUTROPHILS 60.8 % (40-80); PLATELET COUNT 203 10x3/uL (130-400); RBC 3.74 10x6/uL (4.00-5.40); RDW 13.8 % (11.5-14.5); WBC 5.3 10x3/uL (4.8-10.8)
[2017-06-30 06:47] LABS: ALBUMIN 2.7 g/dL (3.4-5.0); ANION GAP 12.6 mmol/L (8-16); BILIRUBIN - TOTAL 0.21 mg/dL (0.2-1.3); CALCIUM 8.4 mg/dL (8.5-10.1); CARBON DIOXIDE 26.9 mmol/L (21.0-32.0); CREATININE - SERUM 1.6 mg/dL (0.6-1.3); PROTEIN - SERUM 6.3 g/dL (6.4-8.2)
[2017-06-30 06:51] LABS: POTASSIUM - SERUM 4.5 mmol/L (3.5-5.1)
--- NOTE | 2017-06-30 07:30 | NUR ---
MORNING ROUNDS MADE. PATIENT C/O EXTREME PAIN AND MUSCLE SPASMS IN ARMS AND SHOULDERS. STATES SHE IS NOT TAKING ANY OF HER HOME MEDS AND SHE HAS HIGH BLOOD PRESSURE AND DIABETES. ADVISED I WOULD SPEAK TO HER MD AND ASK THEM ABOUT RESTARTING HER MEDS. VOICED UNDERSTANDING. CPOC.
[2017-06-30 08:17] VITALS: BP 188/101
--- NOTE | 2017-06-30 10:40 | NUR ---
OT NOTE: PT REFUSED IN AM STATING THAT HER STOMACH WAS HURTING TOO BAD. WILL ATTEMPT IN PM. THANK YOU FOR REFERAL, NEDA ALBERTS, OTR/L
--- NOTE | 2017-06-30 11:20 | NUR ---
CRYING DUE TO MUSCLE SPASMS IN ARMS. ON THE UNIT AND ORDERS RECEIVED FOR VALIUM 2 MG PRN FOR SPASMS. MEDICATED WITH VALIUM PO ORDERED.
[2017-06-30 11:22] VITALS: BP 191/104
--- NOTE | 2017-06-30 15:17 | NUR ---
Rehab Note- PreAuth process began with [facility]. Will await clinical request. Will continue to follow at this time. Thank you for this referral! Mone Lawton RN Clinical Liaison, [facility] Rehab
[2017-06-30 16:04] VITALS: BP 151/91
--- NOTE | 2017-06-30 17:51 | NUR ---
OT NOTE: PT COMPLETED SELF FEEDING WITH SET UP. PT COMPLETED BED MOB. THANK YOU, ZACK HOUSTON/Elvia
--- NOTE | 2017-06-30 18:45 | NUR ---
EVENING ROUNDS MADE. PATIENT LAYING IN BED, RESTING, WATCHING TV. STATES SHE IS FEELING BETTER THAN SHE WAS THIS MORNING. DENIES ANY NEEDS AT THIS TIME. CPOC.
--- NOTE | 2017-06-30 20:01 | NUR ---
PT RESTING IN BED. C/O HEADACHE. PT IS ON 2L O2 NC. PT HAS NS INFUSING AT 75 TO LEFT CVL. PT HAS SCD'S ON LOWER EXTREM. BILATERAL. PT DENIES ANY NEEDS. NO S/S OF DISTRESS. WILL CPOC
[2017-06-30 20:27] VITALS: BP 136/75
--- NOTE | 2017-06-30 23:30 | NUR ---
PT URINATE LARGE AMOUNT. CLEANED AND REPOSITONED. SET PT UP TO EAT GRAMCRACKERS. WILL CPOC
--- NOTE | 2017-07-01 00:24 | NUR ---
CHANGED PT LEFT GROIN CVL DRSG. DRSG NOW CDI. RED AREA MARKED WITH MARKER. PT VERBALLIZED UNDERSTANDING OF BEING NPO. PT DENIES ANY NEEDS. PT REPOSITONED IN BED. NO S/S OF DISTRESS. BED LOW AND CALL LIGHT IN REACH. WILL CPOC
[2017-07-01 01:58] VITALS: BP 144/87
[2017-07-01 05:10] VITALS: BP 124/66
[2017-07-01 05:54] LABS: BASOPHILS 0.2 % (0-2); EOSINOPHILS 2.5 % (0-7); HEMATOCRIT 27.8 % (36.0-48.0); HEMOGLOBIN 9.1 g/dL (12-16); IMMATURE GRANULOCYTES 0.2 % (0-5); LYMPHOCYTES 41.8 % (15-50); MCH 26.8 pg (26.0-34.0); MCHC 32.7 g/dL (31.0-37.0); MEAN PLATELET VOLUME 11.2 fL (7.4-10.4); MONOCYTES 7.9 % (2-11); NEUTROPHILS 47.4 % (40-80); PLATELET COUNT 214 10x3/uL (130-400); RBC 3.39 10x6/uL (4.00-5.40); RDW 13.9 % (11.5-14.5); WBC 4.4 10x3/uL (4.8-10.8)
[2017-07-01 06:11] LABS: APTT 28.4 SECONDS (22.8-39.4); INR 1.02 (0.85-1.17)
[2017-07-01 06:26] LABS: ALBUMIN 2.3 g/dL (3.4-5.0); ANION GAP 9.8 mmol/L (8-16); BILIRUBIN - TOTAL 0.2 mg/dL (0.2-1.3); CALCIUM 8.2 mg/dL (8.5-10.1); CARBON DIOXIDE 29.1 mmol/L (21.0-32.0); CREATININE - SERUM 1.7 mg/dL (0.6-1.3); POTASSIUM - SERUM 3.9 mmol/L (3.5-5.1); PROTEIN - SERUM 5.8 g/dL (6.4-8.2)
--- NOTE | 2017-07-01 08:00 | NUR ---
ASSESSMENT DONE. DENIES NEEDS.
[2017-07-01 08:10] VITALS: BP 137/71
--- NOTE | 2017-07-01 08:40 | NUR ---
TO X-RAY PER BED
--- NOTE | 2017-07-01 09:57 | NUR ---
OUT OF ROOM FOR PIPIDA SCAN. WILL CONT. PLAN OF CARE.
[2017-07-01 13:27] VITALS: Ht 157.5 cm; Wt 82.6 kg
[2017-07-01 16:05] VITALS: BP 179/88
--- NOTE | 2017-07-01 17:16 | NUR ---
OT NOTE: PT COMPLETED SELF FEEDING WITH SPV. PT COMPLETED HYGIENE TASKS WITH SET UP . PT COMPLETED BUE GROSS/FM AXS FOR INCREASED I WIT ADLS. THANK YOU, ZACK HOUSTON/Elvia
--- NOTE | 2017-07-01 17:26 | NUR ---
WITHOUT CHANGES OR DISTRESS NOTED AT THIS TIME. DENIES NEEDD.
--- NOTE | 2017-07-01 19:20 | NUR ---
PT RESTING IN BED. VERBALIZES UNDERSTANDING OF PROCEDURE IN THE AM. DENIES ANY QUESTION OR CONCERNS. BEDLOW AND CALL LIGHT INREACH. NO S/S OF DISTRESS. WILL CPOC
[2017-07-01 20:19] VITALS: BP 153/81
[2017-07-02 00:38] VITALS: BP 97/48
--- NOTE | 2017-07-02 03:00 | NUR ---
PT ASLEEP. RESPIRATIONS EVEN AND UNLABORED. NO S/S OF DISTRESS. NS INFUSING AT 75 TO LEFT GROIN CVL. WILL CPOC
[2017-07-02 04:57] VITALS: BP 102/69
[2017-07-02 05:55] LABS: HEMATOCRIT 26.8 % (36.0-48.0); HEMOGLOBIN 8.8 g/dL (12-16); LYMPHOCYTES 35.5 % (15-50); MCH 26.5 pg (26.0-34.0); MCHC 32.8 g/dL (31.0-37.0); MCV 80.7 fL (80.0-100.0); MEAN PLATELET VOLUME 10.5 fL (7.4-10.4); NEUTROPHILS 54.6 % (40-80); PLATELET COUNT 209 10x3/uL (130-400); RBC 3.32 10x6/uL (4.00-5.40); RDW 13.6 % (11.5-14.5)
[2017-07-02 05:56] LABS: WBC 5.7 10x3/uL (4.8-10.8)
[2017-07-02 06:07] LABS: ALBUMIN 2.3 g/dL (3.4-5.0); BILIRUBIN - TOTAL 0.13 mg/dL (0.2-1.3); CALCIUM 8.2 mg/dL (8.5-10.1); CARBON DIOXIDE 31.5 mmol/L (21.0-32.0); CREATININE - SERUM 1.6 mg/dL (0.6-1.3); PROTEIN - SERUM 5.7 g/dL (6.4-8.2)
[2017-07-02 06:08] LABS: ANION GAP 9.1 mmol/L (8-16); POTASSIUM - SERUM 4.6 mmol/L (3.5-5.1)
[2017-07-02 08:00] VITALS: BP 137/74
--- NOTE | 2017-07-02 08:04 | NUR ---
PT PREOP FOR SURGERY. EKG AND PREOP CHECK LIST DOWN.
--- NOTE | 2017-07-02 10:40 | NUR ---
TO OR PER BED
--- NOTE | 2017-07-02 13:34 | NUR ---
PT REMAINS VERY DROWSY, FALLING ASLEEP UNLESS DIRECTLY STIMULATED. PT REUESTS BEDPAN, BEDPAN PLACED.
[2017-07-02 14:00] VITALS: BP 91/60
--- NOTE | 2017-07-02 14:14 | NUR ---
PATIENT RETURNS FROM SURGERY AT THIS TIME. VITAL SIGNS 91/60 P60 R14. PATIENT DENIES ANY PAIN AT THIS TIME. FOUR INCISIONS COVERED WITH STERI-STRIPS NOTED TO ABD. NO PROBLEMS ARE NOTED AT THIS TIME O2 96% AT 2L NASAL CANULLA. WILL CONTINUE TO FOLLOW PATIENT'S CURRENT PLAN OF CARE.
[2017-07-02 16:00] VITALS: BP 102/55
--- NOTE | 2017-07-02 17:32 | NUR ---
PATIENT IN BED RESTING AT THIS TIME. PATIENT HAS RESTED MOST OF THIS AFTERNOON FOLLOWING SURGERY. VITAL SIGNS ARE STABLE AND NO SIGNS OF DISTRESS ARE NOTED AT THIS TIME. PATIENT'S MOTHER LEFT MESSAGE FOR THIS NURSE TO CALL HER, ATTEMPTED TO CONTACT HER TWO TIMES WITH NO ANSWER.
--- NOTE | 2017-07-02 19:18 | NUR ---
PT WATCHING TV. STATES HE WOULD LIKE HIS PAIN PILL WHEN AVALIBLE. PT DENIES ANY OTHER NEEDS. NO S/S OF DISTRESS. BED LOW AND CALL LIGHT IN REACH. WILL CPOC
[2017-07-02 20:00] VITALS: BP 162/123
--- NOTE | 2017-07-02 20:30 | NUR ---
PT C/O NAUSEA AND IS IN SEVERE PAIN. REPOSITIONED PT AND GAVE TYLENOL. WILL GIVE PRN DEMEROL WHEN AVALIBLE. PT ON 2L NC. NS INFUSING AT 75 TO LEFT GROIN. WILL CPOC
--- NOTE | 2017-07-02 21:34 | NUR ---
PT RESTING IN BED WATCHING TV. PT DENIES ANY NEEDS AT THIS TIME. BED LOW AND CALL LIGHT IN REACH. NO S/S OF DISTRESS. WILL CPOC
[2017-07-03] VITALS: BP 123/69
--- NOTE | 2017-07-03 02:00 | NUR ---
PT ASLEEP RESPIRATIONS EVEN AND UNLABORED. NO S/S OF DISTRESS. BED LOW AND CALL LIGHT IN REACH. WILL CPOC
[2017-07-03 04:00] VITALS: BP 142/80
[2017-07-03 05:48] LABS: BASOPHILS 0.1 % (0-2); EOSINOPHILS 0.1 % (0-7); IMMATURE GRANULOCYTES 0.1 % (0-5); MCH 26.8 pg (26.0-34.0); MCHC 32.4 g/dL (31.0-37.0); MONOCYTES 4.6 % (2-11); NEUTROPHILS 81.1 % (40-80); RDW 14.1 % (11.5-14.5)
[2017-07-03 05:53] LABS: HEMATOCRIT 35.8 % (36.0-48.0); HEMOGLOBIN 11.6 g/dL (12-16); MCV 82.7 fL (80.0-100.0); PLATELET COUNT 287 10x3/uL (130-400); RBC 4.33 10x6/uL (4.00-5.40); WBC 9.9 10x3/uL (4.8-10.8)
--- NOTE | 2017-07-03 06:12 | NUR ---
PT C/O NAUSEA. ZOFRAN GIVEN. PT HAS ONLY VOIDED APPROX 80 ML. BLADDER SCAN SHOWED 791 ML IS POSSIBLE. PT BLADDER IS PALP. DISTENDED. PT HAS TRIED VOIDING 3 TIMES TONIGHT AND ONLY URINATED ONCE. PT DENIES ANY NEEDS. NO S/S OF DISTRESS. WILL CPOC
[2017-07-03 06:19] LABS: ALBUMIN 2.4 g/dL (3.4-5.0); BILIRUBIN - TOTAL 0.2 mg/dL (0.2-1.3); CALCIUM 8.5 mg/dL (8.5-10.1); PROTEIN - SERUM 6.2 g/dL (6.4-8.2)
[2017-07-03 06:27] LABS: CREATININE - SERUM 2.4 mg/dL (0.6-1.3)
[2017-07-03 06:28] LABS: ANION GAP 12.3 mmol/L (8-16); POTASSIUM - SERUM 6.3 mmol/L (3.5-5.1)
--- NOTE | 2017-07-03 07:58 | NUR ---
AM ROUNDING- RECEIVED REPORT FROM HUMAN RESOURCE INTERNSHIP NURSE DAVID. PT IS CURRENTLY LAYING IN BED ON BACK WITH EYES CLOSED RESTING. PER HUMAN RESOURCE INTERNSHIP NURSE DAVID, PT HAS BEEN VERY LETHARGIC/SEDATED. PT IS ON 02 AT 2L VIA NC. ON MONITOR SHOWING SR, HR 69. IV SEEN TO CVL WITH NS RUNNING AT 75CC. NO NEED AT THIS CURRENT TIME. WILL CONTINUE TO MONITOR AND CONTINUE WITH PLAN OF CARE.
[2017-07-03 08:00] VITALS: BP 110/69
--- NOTE | 2017-07-03 08:46 | NUR ---
PT IS C/O SEVERE PAIN COMING FROM GENERALIZED ABDOMINAL AREA. PER REPORT PT HAS NOT URINATED. PT TELLS THIS NURSE THAT SHE HAS BEEN URINATING ALOT. THIS NURSE PLACES PT ON BED GARCIA. WILL CONTINUE TO MONITOR.
--- NOTE | 2017-07-03 09:00 | NUR ---
THIS NURSE ASSISTED PT OFF OF BEDPAN. PT DID URINATE WITH WHAT APPEARS TO BE CONCENTRATED URINE SEEN.
[2017-07-03 12:00] VITALS: BP 124/70
[2017-07-03 15:46] VITALS: BP 99/54
--- NOTE | 2017-07-03 17:37 | NUR ---
PT IS CURRENTLY SITTING UP IN BED WITH EYES OPEN RESTING. PT APPEARS LETHARGIC. BED IS IN LOW POSITION AND SIDE RAILS ARE UP X2. WILL CONTINUE TO MONITOR.
--- NOTE | 2017-07-03 19:02 | NUR ---
OT NOTE: PT REQUIRED MAX A/MOD A FOR HYGIENE TASK AND GROOMING TASKS. THANK YOU, ZACK HOUSTON/Elvia
--- NOTE | 2017-07-03 19:37 | NUR ---
PT IN BED RESTING. EVEN AND UNLABORED RESPIRATIONS NOTED. WILL CONT TO MONITOR.
[2017-07-03 20:00] VITALS: BP 124/70
[2017-07-04] VITALS: BP 122/67
[2017-07-04 04:00] VITALS: BP 137/71
[2017-07-04 05:40] LABS: BASOPHILS 0.1 % (0-2); EOSINOPHILS 1.9 % (0-7); HEMATOCRIT 32.3 % (36.0-48.0); HEMOGLOBIN 10.1 g/dL (12-16); IMMATURE GRANULOCYTES 0.4 % (0-5); LYMPHOCYTES 26.5 % (15-50); MCHC 31.3 g/dL (31.0-37.0); MEAN PLATELET VOLUME 11.1 fL (7.4-10.4); MONOCYTES 8.5 % (2-11); NEUTROPHILS 62.6 % (40-80); PLATELET COUNT 271 10x3/uL (130-400); RBC 3.89 10x6/uL (4.00-5.40); RDW 14.6 % (11.5-14.5)
[2017-07-04 06:05] LABS: ALBUMIN 2.3 g/dL (3.4-5.0); BILIRUBIN - TOTAL 0.2 mg/dL (0.2-1.3); CALCIUM 8.1 mg/dL (8.5-10.1); CARBON DIOXIDE 28.1 mmol/L (21.0-32.0); CREATININE - SERUM 2.3 mg/dL (0.6-1.3); PROTEIN - SERUM 6.1 g/dL (6.4-8.2)
[2017-07-04 06:08] LABS: ANION GAP 10.7 mmol/L (8-16); POTASSIUM - SERUM 3.8 mmol/L (3.5-5.1)
--- NOTE | 2017-07-04 06:24 | NUR ---
PT BS 58 AT THIS TIME. SHERBERT AND ORANGE JUICE PROVIDED WILL RECHECK IN 20 MINUTES.
--- NOTE | 2017-07-04 07:35 | NUR ---
AM ROUNDING- RECEIVED REPORT FROM TRACK LAYING MACHINE OPERATOR NURSE NATHAN. PT IS CURRENTLY SITTING UP IN BED SLOUCHED TO LEFT SIDE OF BED WITH EYES CLOSED RESTING. JUSTA EVANS CHECKED PTS BS THIS AM WHICH WAS 40. NATHAN GAVE PT D5 PER HYPOGLYCEMIC PROTOCOL AND GAVE PT TWO CUPS OF ORANGE JUICE WHICH PT DRANK. WILL RECHECK PTS BS. PT IS ON 02 AT 2L VIA NC. ON MONITOR SHOWING SR, HR 72. IV SEEN TO LEFT GROIN CVL WITH NS RUNNING AT 75CC. SCDS ARE ON. WILL CONTINUE TO CHECK PTS BS AND TX PER PROTOCOL IF NEEDED.
[2017-07-04 08:00] VITALS: BP 141/78
--- NOTE | 2017-07-04 08:08 | NUR ---
THIS NURSE CHECKED PTS BS WHICH IS 89. PT IS AWAKE TALKING TO ME. THIS NURSE ENCOURAGED PT TO DRINK ORANGE JUICE AT BEDSIDE. WILL CONTINUE TO MONITOR.
--- NOTE | 2017-07-04 10:00 | NUR ---
PATIENT RESTING WELL. PATIENTS MOTHER AND SISTER IN ROOM VISITING.
[2017-07-04 12:00] VITALS: BP 102/55
--- NOTE | 2017-07-04 14:45 | NUR ---
PRN ZOFRAN GIVEN FOR NAUSEA. PRN PAIN MEDICATION GIVEN FOR ABDOMENAL PAIN PER PATIENT REQUEST
[2017-07-04 16:00] VITALS: BP 115/81
--- NOTE | 2017-07-04 17:48 | NUR ---
GLUCOSE LEVEL 118. PATIENT DRANK SOME ORANGE JUICE AND ATE ALL OF HER SOUP
--- NOTE | 2017-07-04 19:35 | NUR ---
PT IN BED TALKING ON PHONE. DENIES NEEDS AT THIS TIME.
[2017-07-04 21:01] VITALS: BP 150/77
[2017-07-05 00:52] VITALS: BP 163/77
[2017-07-05 05:25] LABS: BASOPHILS 0 % (0-2); EOSINOPHILS 2.7 % (0-7); IMMATURE GRANULOCYTES 0.2 % (0-5); LYMPHOCYTES 30.6 % (15-50); MCH 26.5 pg (26.0-34.0); MCHC 32.3 g/dL (31.0-37.0); MCV 82.1 fL (80.0-100.0); MEAN PLATELET VOLUME 9.9 fL (7.4-10.4); MONOCYTES 5.6 % (2-11); NEUTROPHILS 60.9 % (40-80); RDW 14.3 % (11.5-14.5); WBC 5.6 10x3/uL (4.8-10.8)
[2017-07-05 05:29] LABS: HEMATOCRIT 24.8 % (36.0-48.0); PLATELET COUNT 208 10x3/uL (130-400); RBC 3.02 10x6/uL (4.00-5.40)
[2017-07-05 05:36] VITALS: BP 151/108
[2017-07-05 05:42] LABS: INR 1.14 (0.85-1.17); PROTIME 14.2 SECONDS (11.6-15.0)
[2017-07-05 05:51] LABS: ANION GAP 8.5 mmol/L (8-16); BILIRUBIN - TOTAL 0.2 mg/dL (0.2-1.3); CALCIUM 7.9 mg/dL (8.5-10.1); CARBON DIOXIDE 28.1 mmol/L (21.0-32.0); CREATININE - SERUM 1.9 mg/dL (0.6-1.3); POTASSIUM - SERUM 3.6 mmol/L (3.5-5.1); PROTEIN - SERUM 5.4 g/dL (6.4-8.2)
--- NOTE | 2017-07-05 07:15 | NUR ---
RECIEVED REPORT ON PATIENT, PATIENT IS SLEEPING AT THIS TIME, NAD NOTED. CHEST RISES AND FALLS EQUALLY. PATIENT IS SR ON MONITOR WITH A RATE OF 69. PATIENT HAS A L GROIN CVL WITH NS INFUSING AT 75ML/HR. PATIENT IS ON 2L/MIN VIA NC OF O2. PATIENT AROUSES TO VOICE DENIES ANY NEEDS AT THIS TIME. BED LOW AND LOCKED. CALL LIGHT IN REACH. CPOC
[2017-07-05 08:42] VITALS: BP 129/62
--- NOTE | 2017-07-05 09:30 | NUR ---
MORNING MEDICATIONS GIVEN. NO ISSUES. PATIENT DENIES ANY NEEDS. CPOC
--- NOTE | 2017-07-05 11:27 | NUR ---
PATIENT FSBS 339, 8 UNITS OF HUMALOG GIVEN PER SLIDING SCALE. CPOC
--- NOTE | 2017-07-05 12:21 | NUR ---
Nutrition follow-up: Diet: Regular ordered by Dr. Brown PO intake has been poor since Lap Shantal Wt: 185# +BM, loose Pt with some nausea since surgery Glucose elevated Recommend changing diet order to ADA consistent CHO due to Glucose elevated. RDN following.
--- NOTE | 2017-07-05 12:30 | NUR ---
PATIENT SITTING UP IN BED, EATING LUNCH. DENIES ANY NEEDS AT THIS TIME. CPOC
[2017-07-05 13:41] VITALS: BP 135/69
--- NOTE | 2017-07-05 14:00 | NUR ---
PATIENT WATCHING TV, DENIES ANY NEEDS. CPOC
--- NOTE | 2017-07-05 16:15 | NUR ---
ASSISTED PATIENT WITH BEDPAN, PATIENT URINATED. CLEANED UP. DENIES ANY NEEDS. CPOC
--- NOTE | 2017-07-05 16:19 | NUR ---
Rehab Note- Received call from Mercedes Rollins and denied the patient an inpatient acute rehab stay. Stated she would notify the acute hospital foster care case manager, provided phone # at this time. Thank you for this referral! Mone Lawton RN Clinical Liaison, [facility] Rehab
--- NOTE | 2017-07-05 16:51 | NUR ---
Patient Name: ANGIE LOPEZ Encounter No: [id number] : 1955 Primary Insurance: [employer] CHOICE PPO MCR ADVANT Anticipated DC Date: 07-06-2017 Planned Disposition: Chcf Facility External Planned Provider: [facility], MEDICARE REHAB BED DCP follow-up note: CM RECEIVED CALL FROM PARAS OF [facility], , EXT [phone], WHO REPORTED THAT [facility] HAS DENIED INPATIENT REHAB, IF THE DOCTOR WISHES TO DO PEER TO PEER, PLEASE NOTIFY PARAS WITHIN 5 DAYS. CM SPOKE TO PT IN ROOM, DISCUSSED DENIAL AND APPEAL RIGHTS. PT REPORTED SHE WOULD RATHER JUST GO TO [facility] ANYWAY. PT HAS PREVIOUSLY SIGNED CHOICE FOR [facility]. IMPORTANT MESSAGE FROM MEDICARE PROVIDED AND EXPLAINED. CM CALLED [facility], , SPOKE TO MARK WHO WILL EVALUATE PT FOR REHAB PLACEMENT. CM FAXED REFERRAL TO [facility] AT [phone]. CM WAITING ADMISSION DETERMINATION FROM [facility]. Chaitanya Anand, CASE MANAGEMENT
--- NOTE | 2017-07-05 17:30 | NUR ---
ASSISTED PATIENT SETTING UP DINNER. TRAY. PATIENT EATING DINNER. DENIES ANY NEEDS. CPOC
[2017-07-05 17:42] VITALS: BP 145/75
--- NOTE | 2017-07-05 18:05 | NUR ---
OT NOTE: PT COMPLETED BED MOB WITH SPV. PT COMPLETED SELF FEEDING WITH SET UP AND CLOCK METHOD TO IDENTIFY FOOD LOCATION ON PLATE. THANK YOU, ZACK HOUSTON/Elvia
--- NOTE | 2017-07-05 18:21 | NUR ---
PATIENT INFORMED MY SHIFT WAS ALMOST OVER. DENIES ANY NEEDS. CPOC
[2017-07-05 20:53] VITALS: BP 150/70
[2017-07-06 00:37] VITALS: BP 144/70
--- NOTE | 2017-07-06 02:33 | NUR ---
PATIENT IS ALERT IN BED, HAD A LARGE LOOSE BM. BEDDING AND GOWN CHANGED, CVL DRESSING TO LEFT GROIN WAS CHANGED. PATIENT TOLERATED WELL, CALL LIGHT IN REACH. WILL CONTINUE PLAN OF CARE.
[2017-07-06 04:20] VITALS: BP 143/72
--- NOTE | 2017-07-06 07:15 | NUR ---
RECIEVED REPORT ON PATIENT, PATIENT IS ALERT AND ORIENTED. PATIENT HAS A L GROIN CVL WITH NS INFUSING AT 50ML/HR. ASSISTED PATIENT IN USING BEDPAN, PATIENT URINATED, PATIENT DENIES ANY OTHER NEEDS AT THIS TIME. BED LOW AND LOCKED. CALL LIGHT IN REACH. CPOC
[2017-07-06 08:00] VITALS: BP 136/65
--- NOTE | 2017-07-06 09:29 | NUR ---
MORNING MEDICATIONS GIVEN. NO ISSUES. TRAMADOL GIVEN FOR PAIN IN ARM 210. PATIENT DENIES ANY OTHER NEEDS. CPOC
--- NOTE | 2017-07-06 11:28 | NUR ---
FSBS 356, 10 UNITS OF HUMALOG GIVEN. CPOC
[2017-07-06 12:00] VITALS: BP 150/74
--- NOTE | 2017-07-06 12:33 | NUR ---
PATIENT SITTING UP IN BED EATING LUNCH, DENIES ANY NEEDS. CPOC
[2017-07-06 13:42] LABS: BASOPHILS 0.1 % (0-2); EOSINOPHILS 1.6 % (0-7); HEMATOCRIT 25.3 % (36.0-48.0); HEMOGLOBIN 8.2 g/dL (12-16); IMMATURE GRANULOCYTES 0.3 % (0-5); LYMPHOCYTES 25.6 % (15-50); MCH 26.5 pg (26.0-34.0); MCHC 32.4 g/dL (31.0-37.0); MCV 81.6 fL (80.0-100.0); MEAN PLATELET VOLUME 9.9 fL (7.4-10.4); MONOCYTES 4.8 % (2-11); NEUTROPHILS 67.6 % (40-80); RDW 13.6 % (11.5-14.5); WBC 6.8 10x3/uL (4.8-10.8)
[2017-07-06 13:51] LABS: ANION GAP 8.6 mmol/L (8-16); CALCIUM 8.5 mg/dL (8.5-10.1); CARBON DIOXIDE 28.5 mmol/L (21.0-32.0); CREATININE - SERUM 1.8 mg/dL (0.6-1.3); POTASSIUM - SERUM 4.1 mmol/L (3.5-5.1)
[2017-07-06 14:06] LABS: PLATELET COUNT 250 10x3/uL (130-400)
--- NOTE | 2017-07-06 14:30 | NUR ---
PATIENT AMBULATING AROUND ROOM WITH PT. CPOC
[2017-07-06 16:00] VITALS: BP 155/77
--- NOTE | 2017-07-06 16:30 | NUR ---
FSBS 242 4 UNITS OF HUMALOG GIVEN PER SLIDING SCALE. CPOC
--- NOTE | 2017-07-06 16:49 | NUR ---
PATIENT SITTING UP IN CHAIR, WAITING ON DINNER. DENIES ANY NEEDS. CPOC
--- NOTE | 2017-07-06 17:47 | NUR ---
OT NOTE: PT COMPLETED DYNAMIC SITTING BALANCE WITH SBA. PT COMPLETED BUE AROM AXS FOR INCREASED AX TOLERANCE. THANK YOU, ZACK HOUSTON/Elvia
--- NOTE | 2017-07-06 18:26 | NUR ---
ROUNDS MADE, INFORMED PATIENT MY SHIFT WAS ABOUT TO BE ENDING, DENIES ANY NEEDS. PATIENT RESTING. CPOC
[2017-07-06 20:00] VITALS: BP 156/78
[2017-07-07] VITALS: BP 116/77
--- NOTE | 2017-07-07 03:55 | NUR ---
PT IS ALERT IN BED, DENIES PAIN OR NEEDS AT THIS TIME. CALL LIGHT IN REACH, WILL CONTINUE PLAN OF CARE.
[2017-07-07 04:00] VITALS: BP 145/62
--- NOTE | 2017-07-07 05:25 | NUR ---
PT RESTING COMFORTABLY, NO NEEDS. CONTINUE TO MONITOR CLOSELY.
[2017-07-07 05:35] LABS: BASOPHILS 0.2 % (0-2); EOSINOPHILS 2.6 % (0-7); HEMATOCRIT 23.6 % (36.0-48.0); HEMOGLOBIN 7.8 g/dL (12-16); IMMATURE GRANULOCYTES 0.3 % (0-5); MCH 26.4 pg (26.0-34.0); MCHC 33.1 g/dL (31.0-37.0); MONOCYTES 5.5 % (2-11); NEUTROPHILS 62.4 % (40-80); PLATELET COUNT 248 10x3/uL (130-400); RBC 2.95 10x6/uL (4.00-5.40); RDW 13.7 % (11.5-14.5); WBC 6.1 10x3/uL (4.8-10.8)
[2017-07-07 05:57] LABS: ANION GAP 10.5 mmol/L (8-16); CALCIUM 8.5 mg/dL (8.5-10.1); CREATININE - SERUM 1.5 mg/dL (0.6-1.3); POTASSIUM - SERUM 3.5 mmol/L (3.5-5.1)
--- NOTE | 2017-07-07 08:07 | NUR ---
AM ROUNDS - PT IN BED AND APPEARS TO BE SLEEPING WITH EQUAL AND NON LABORED BREATHING. MONITOR SHOWING SR, HR 77. CVL TO LEFT GROIN. BED AT LOWEST POSITION. CALL MEJIA IN USE/REACH. SIDE RAILS UP X2. WILL CONTINUE TO MONITOR
[2017-07-07 10:31] VITALS: BP 179/79
--- NOTE | 2017-07-07 12:23 | NUR ---
Patient Name: ANGIE LOPEZ Encounter No: [id number] : 1955 Primary Insurance: [employer] CHOICE PPO MCR ADVANT Anticipated DC Date: 07-06-2017 Planned Disposition: Intermediate Facility External Planned Provider: [facility], MEDICARE REHAB BED DCP follow-up note: CM CALLED [facility], , SPOKE TO MARK WHO REPORTS STILL WAITING INSURANCE AUTH FOR REHAB STAY. CM FAXED UPDATE TO [facility] AT [phone]. CM WAITING INSURANCE AUTHORIZATION / ADMISSION DETERMINATION FROM [facility] AND [facility]. Chaitanya Anand, CASE MANAGEMENT
[2017-07-07 13:23] VITALS: BP 158/81
[2017-07-07 13:34] LABS: % SATURATION 25 % (15-55); IRON 42 ug/dl (35-150); TOTAL IRON BIND CAPACITY 167 ug/dl (260-445); UNSAT IRON BIND CAPACITY 125 ug/dl (150-375)
[2017-07-07 17:10] VITALS: BP 158/83
--- NOTE | 2017-07-07 17:10 | NUR ---
OT NOTE: PT COMPLETED BUE COORDINATION TASKS AND BED MOB WITH MIN A. THANK YOU, ZACK HOUSTON/Elvia
--- NOTE | 2017-07-07 17:52 | NUR ---
PT IN BED AT THIS TIME. IV ANTIBIOTICS GOING. WILL CONTINUE TO MONITOR
[2017-07-07 20:27] VITALS: BP 153/87
[2017-07-08 00:07] VITALS: BP 137/72
--- NOTE | 2017-07-08 05:01 | NUR ---
LIQUEFIED PETROLEUM GASFITTER AT BEDSIDE TO OBTAIN VITALS, CALL LIGHT IN REACH. WILL CONTINUE WITH PLAN OF CARE.
[2017-07-08 05:13] VITALS: BP 134/82
--- NOTE | 2017-07-08 05:53 | NUR ---
PT NEEDS A STOOL SAMPLE SENT TO THE LAB, PT DID NOT HAVE A BM DURING MY SHIFT.
[2017-07-08 06:00] LABS: BASOPHILS 0.3 % (0-2); EOSINOPHILS 2.3 % (0-7); HEMATOCRIT 24.5 % (36.0-48.0); HEMOGLOBIN 8.2 g/dL (12-16); IMMATURE GRANULOCYTES 0.3 % (0-5); LYMPHOCYTES 21.5 % (15-50); MCH 26.7 pg (26.0-34.0); MCHC 33.5 g/dL (31.0-37.0); MCV 79.8 fL (80.0-100.0); MONOCYTES 5.1 % (2-11); NEUTROPHILS 70.5 % (40-80); RBC 3.07 10x6/uL (4.00-5.40); RDW 13.8 % (11.5-14.5); WBC 7.5 10x3/uL (4.8-10.8)
[2017-07-08 06:02] LABS: PLATELET COUNT 298 10x3/uL (130-400)
[2017-07-08 06:04] LABS: ANION GAP 11.2 mmol/L (8-16); CALCIUM 8.5 mg/dL (8.5-10.1); CARBON DIOXIDE 30.2 mmol/L (21.0-32.0); CREATININE - SERUM 1.5 mg/dL (0.6-1.3)
[2017-07-08 06:09] LABS: POTASSIUM - SERUM 4.4 mmol/L (3.5-5.1)
--- NOTE | 2017-07-08 07:26 | NUR ---
AM ROUNDING- RECEIVED REPORT FROM DOCK CLERK NURSE NEDA. PT IS CURRENTLY LAYING IN BED WITH EYES CLOSED RESTING. ON 02 AT 2L VIA NC. ON MONITOR SHOWING SR, HR 65. IV SEEN TO LEFT GROIN CVL THAT IS CURRENTLY SALINE LOCKED. NO NEED AT THIS CURRENT TIME. WILL CONTINUE TO MONITOR AND CONTINUE WITH PLAN OF CARE.
[2017-07-08 08:19] LABS: FOLATE (FOLIC ACID) - SERUM 6.8 ng/mL (>3.0)
[2017-07-08 08:40] VITALS: BP 141/76
--- NOTE | 2017-07-08 10:54 | NUR ---
OT NOTE: PRACTICED BED MOB WITH MIN/MOD ASSIST. ACT IN SITTING TO IMPROVE TRUNK CONTROL; EXS TO IMPROVE UE STRENGTH; ELEVATED LE ON PILLOW SHE WAS REPORTING HEEL PAIN. NEDA ALBERTS, OTR/L
--- NOTE | 2017-07-08 11:39 | NUR ---
Patient Name: ANGIE LOPEZ Encounter No: [id number] : 1955 Primary Insurance: [employer] CHOICE PPO MCR ADVANT Anticipated DC Date: 07-06-2017 Planned Disposition: Usp Facility External Planned Provider: [facility], MEDICARE REHAB BED DCP follow-up note: CM SPOKE TO PT IN ROOM TO DISCUSS DISCHARGE PLAN AND NEEDS. PT STILL WANTS TO GO TO [facility] FOR REHAB, NOT [facility]. IMPORTANT MESSAGE FROM MEDICARE PROVIDED AND EXPLAINED. CM CALLED HARRY CLINICAL LIAISON FOR [facility], , ASKED FOR ASSESSMENT FOR REHAB ADMISSION SOON POSSIBLE. CM FAXED REFERRAL TO [facility] VIA [facility] AT [phone]. CM UPDATED CAROUSEL ATTENDANT TIMMY. CM WAITING ADMISSION DETERMINATION FROM [facility], CONTINUES TO AWAIT INSURANCE AUTHORIZATION FOR SNF CARE. Chaitanya Anand, CASE MANAGEMENT
--- NOTE | 2017-07-08 12:34 | NUR ---
Nutrition follow-up: Diet: ADA consistent CHO PO intake 75-100% of most meals Labs reviewed +BM Pt has sprinkled sugar on meal at lunch thinking she had the salt. RDN called down for another tray to be delivered. RDN following.
[2017-07-08 12:58] VITALS: BP 136/74
--- NOTE | 2017-07-08 14:40 | NUR ---
Patient Name: ANGIE LOPEZ Encounter No: [id number] : 1955 Primary Insurance: [employer] CHOICE PPO MCR ADVANT Anticipated DC Date: 07-06-2017 Planned Disposition: Half-Way Facility External Planned Provider: [facility], MEDICARE REHAB BED DCP follow-up note: CM RECEIVED CALL FROM GLENYS OF [employer] WHO ADVISED THAT PT'S MEDICARE IS WITH [employer] OUT OF [place] - PARAS [facility] CALLED [facility] AND REQUESTED UPDATED INFORMATION REGARDING MOBILITY, TRANSFERS AND ADL'S. JOS ADVISED GLENYS THAT PT HAS CHANGED HER MIND, WANTS [facility]. CM FAXED ADDITIONAL INFORMAITON TO PARAS AT FAX [phone]. CM NOTIFIED HARRY OF [facility]. CM CONTINUES TO WAIT AUTHORIZATION FROM PT'S INSURANCE FOR SNF REHAB. CM WAITING ADMISSION DETERMINATION FROM [facility]. SMITA SOSA, CASE MANAGEMENT
[2017-07-08 16:30] VITALS: BP 133/60
--- NOTE | 2017-07-08 18:20 | NUR ---
PT IS CURRENTLY SITTING UP IN BED WITH EYES CLOSED RESTING. PT APPEARS TO BE LETHARGIC. BED IS IN LOW POSITION AND SIDE RAILS ARE UP X2. NO NEED AT THIS CURRENT TIME. WILL CONTINUE TO MONITOR.
[2017-07-08 22:08] VITALS: BP 135/72
--- NOTE | 2017-07-09 01:58 | NUR ---
LYING IN BED WITH EYES CLOSED, CALL LIGHT IN REACH. WILL CONTINUE WITH PLAN OF CARE. 69 SR ON TELEMETRY
[2017-07-09 05:06] VITALS: BP 127/63
[2017-07-09 05:41] LABS: BASOPHILS 0.2 % (0-2); EOSINOPHILS 2.7 % (0-7); HEMATOCRIT 23.2 % (36.0-48.0); IMMATURE GRANULOCYTES 0.3 % (0-5); LYMPHOCYTES 30.5 % (15-50); MCH 26.3 pg (26.0-34.0); MCHC 32.3 g/dL (31.0-37.0); MCV 81.4 fL (80.0-100.0); MEAN PLATELET VOLUME 9.4 fL (7.4-10.4); MONOCYTES 7.1 % (2-11); NEUTROPHILS 59.2 % (40-80); PLATELET COUNT 284 10x3/uL (130-400); RBC 2.85 10x6/uL (4.00-5.40); RDW 13.7 % (11.5-14.5); WBC 6.4 10x3/uL (4.8-10.8)
[2017-07-09 05:49] LABS: HEMOGLOBIN 7.5 g/dL (12-16)
--- NOTE | 2017-07-09 05:58 | NUR ---
PT NEEDS A STOOL SAMPLE, DID NOT HAVE A BM ON MY SHIFT. WILL PASS TO NEXT SHIFT TO TRY AND COLLECT.
[2017-07-09 06:09] LABS: ANION GAP 9.8 mmol/L (8-16); CALCIUM 8.3 mg/dL (8.5-10.1); CARBON DIOXIDE 31.6 mmol/L (21.0-32.0); CREATININE - SERUM 1.6 mg/dL (0.6-1.3); POTASSIUM - SERUM 4.4 mmol/L (3.5-5.1)
--- NOTE | 2017-07-09 07:38 | NUR ---
AM ROUNDING- RECEIVED REPORT FROM SUPERVISOR CUTTING DEPARTMENT NURSE NEDA. PT IS CURRENTLY LAYING IN BED WITH EYES CLOSED RESTING. ON 02 AT 2L VIA NC. ON MONITOR SHOWING SR, HR 62. IV SEEN TO LEFT CVL THAT IS CURRENTLY SALINE LOCKED. NO NEED AT THIS CURRENT TIME. WILL CONTINUE TO MONITOR AND CONTINUE WITH PLAN OF CARE.
[2017-07-09 09:17] VITALS: BP 125/63; BP 127/68
--- NOTE | 2017-07-09 12:10 | NUR ---
Patient Name: ANGIE LOPEZ Encounter No: [id number] : 1955 Primary Insurance: [employer] CHOICE PPO MCR ADVANT Anticipated DC Date: 07-06-2017 Planned Disposition: Detention Facility External Planned Provider: [facility], MEDICARE REHAB BED DCP follow-up note: CM RECEIVED FAX OF INPATIENT REHAB DENIAL FROM [facility]; CM PROVIDED PT A COPY, READ IT TO HER, RECEIVED SIGNATURE OF RECEIPT OF HER COPY. CM FAXED SIGNATURE OF RECEIPT TO [facility] AT [phone]. CM RECEIVED CALL FROM HEATHER OF [facility], , EXT [phone], ASKING FOR CONFIRMATION OF DELIVERY OF INPATIENT REHAB DENIAL TO PT. CM CALLED AND LEFT MESSAGE ASKING FOR RETURN CALL. PT REPORTS WANTING REHAB AT [facility], PT IS IN AGREEMENT WITH DISCHARGE TODAY IF APPROVED BY HER INSURANCE. CM CONTINUES TO WAIT AUTHORIZATION FROM PT'S INSURANCE FOR SNF REHAB. SMITA SOSA, CASE MANAGEMENT
[2017-07-09 13:14] VITALS: BP 119/68
--- NOTE | 2017-07-09 13:34 | NUR ---
OT NOTE: PT ASLEEP BUT EASILY AROUSED; PRACTICED BED MOB WITH MIN ASSIST ; PT WITH CONTINUED C/O PAIN IN R UE. PT ABLE TO PIN POINT AREAS OF PAIN, WHICH WERE RIGHT ALONG MUSCLE BELLY OF BICEP AND EXTENSOR CARPI RADIALIS AND EXTENSOR DIGITORUM. PROVIDED BIO FREEZE AND MASSAGE TO ALL AREAS WITH REPORTED RELIEF FOLLOWING MASSAGE. NEDA ALBERTS, OTR/L
--- NOTE | 2017-07-09 17:04 | NUR ---
OT NOTE: PT COMPLETED BED MOBILITY WITH CUES AND BED RAIL. PT COMPLETED HYGIENE TASK WITH SET UP. PT COMPLETED BUE COORDINATION AXS. THANK YOU, ZACK HOUSTON/Elvia
[2017-07-09 17:14] VITALS: BP 145/75
--- NOTE | 2017-07-09 17:22 | NUR ---
Patient Name: ANGIE LOPEZ Encounter No: [id number] : 1955 Primary Insurance: [employer] CHO[employer] PPO MCR ADVANT Anticipated DC Date: 07-09-2017 Planned Disposition: Penitentiary Facility External Planned Provider: [facility], MEDICARE REHAB BED DCP follow-up note: CM RECEIVED CALL AT ABOUT 4:30PM FROM [facility], INSURANCE APPROVED REHAB AT [place]. CM NOTIFIED PT IN ROOM, PT IN AGREMEENT WITH DISCHARGE TO REHAB; CM CALLED AND NOTIFIED EDMUNDO AT PT'S REQUEST, LOUIE BOSE, . PT REQUESTED HER SUGAR FREE ICE CREAM AND SUGAR FREE COOKIES BE SENT WITH HER TO [place] FROM THE HOSPITAL; PT REPORTS DIETARY ORDERED THEM SPECIAL FOR HER. CM NOTIFIED APRON MAN NURSE, BEDSIDE NURSE AND SHAREPOINT APPLICATION ARCHITECT. VAN SCHEDULED TO LITIGATION CLAIM REPRESENTATIVE PT AT ABOUT 5:45PM. SHAREPOINT APPLICATION ARCHITECT NOTIFIED WHO IS WORKING ON PT'S DISCHARGE. CM FAXED DISCHARGE ORDER AND MEDICATIONS LIST TO [place] VIA [employer] AT [phone]. NURSE REPORT TO BE CALLED TO [facility], . [place] [facility] TO LITIGATION CLAIM REPRESENTATIVE PT AROUND 5:45PM TONIGHT FOR TRANSPORT TO REHAB. Chaitanya Anand, CASE MANAGEMENT
--- NOTE | 2017-07-09 18:04 | NUR ---
[facility] IS ON PHONE ASKING IF PT IS GETTING HARD SCRIPTS FOR VALIUM. PT DOES NOT HAVE ORDERS OR INSTRUCTIONS TO GO HOME ON VALIUM. SHOBHA WARNER, WAQAR DID D/C ORDERS. SALMA MORELOS, DATA TECHNICIAN COMPLETED PTS D/C PAPERWORK WITH NO HARD SCRIPTS FOR VALIUM. BRADEN CHARGE NURSE TALKS TO NURSE AT [facility] AND INFORMS HER OF THIS. BRADEN CHARGE NURSE IS GOING INTO PTS ROOM NOW TO TAKE CVL DRESSING OUT. JUSTA RODRIGUEZ WENT OVER D/C INSTRUCTIONS AND D/C PAPERWORK WITH PT. HEART MONITOR REMOVED AND RETURNED TO [place] IN TELEMETRY. WILL CONTINUE TO MONITOR.
--- NOTE | 2017-07-09 18:12 | NUR ---
CALLED [facility] AND GAVE REPORT TO JUSTA TOBIAS. MICHELINE AWARE THAT PT IS ON 02 AT 2L VIA NC. INFORMED MICHELINE THAT PT HAS CVL TO LEFT GROIN THAT HAS BEEN TAKEN PRIOR TO D/C AND HAS DRESSING INTACT. INFORMED MICHELINE THAT I DO NOT HAVE HARD SCRIPTS FOR VALIUM ([facility] HOME CALLED EARLIER REGARDING THIS). MICHELINE STATES THAT IS OK THEY ALREADY HAVE THEM (HARD SCRIPTS). JUSTA RODRIGUEZ IS GETTING PT DRESSED NOW. VAN IS ON WAY TO PICK PT UP NOW (PER JUSTA TOBIAS AT [facility]). WILL CONTINUE TO MONITOR.
--- NOTE | 2017-07-09 18:38 | NUR ---
THIS NURSE CHECKED PTS SITE WHERE CVL WAS REMOVED BY BRADEN, CHARGE NURSE. DRESSING IS CLEAN, DRY, AND INTACT WITH NO BLEEDING SEEN. PT D/C VIA WHEELCHAIR.
[2017-07-10 17:09] LABS: AEROBE ID Final report (())
[2017-07-10 17:09] LABS: AEROBE ID Final report (())
== END 2017-07-09 18:40 | DRG 418 ==
LOC: D.ER 14:13 → D.M2 18:02
PROVIDERS: Emergency Medicine; Family Medicine; Surgery; ADMIT Family Medicine
PROC: 0FT44ZZ Resection of Gallbladder, Percutaneous Endoscopic Approach (ICD-10-PCS; principal; 2017-07-02 11:00)
DX: K81.0 Acute cholecystitis (principal); N17.9 Acute kidney failure, unspecified; G72.81 Critical illness myopathy; N30.80 Other cystitis without hematuria; B96.1 Klebsiella pneumoniae [K. pneumoniae] as the cause of diseases classified elsewhere; R63.0 Anorexia; Z68.32 Body mass index [BMI] 32.0-32.9, adult; E11.649 Type 2 diabetes mellitus with hypoglycemia without coma; E11.40 Type 2 diabetes mellitus with diabetic neuropathy, unspecified; E11.22 Type 2 diabetes mellitus with diabetic chronic kidney disease; I12.9 Hypertensive chronic kidney disease with stage 1 through stage 4 chronic kidney disease, or unspecified chronic kidney disease; N18.3 Chronic kidney disease, stage 3 (moderate); Z79.4 Long term (current) use of insulin; H40.9 Unspecified glaucoma; H54.8 Legal blindness, as defined in USA; E87.5 Hyperkalemia; E87.6 Hypokalemia; D50.9 Iron deficiency anemia, unspecified; F41.8 Other specified anxiety disorders; I25.10 Atherosclerotic heart disease of native coronary artery without angina pectoris; D63.1 Anemia in chronic kidney disease; G89.29 Other chronic pain; M54.9 Dorsalgia, unspecified; Z95.5 Presence of coronary angioplasty implant and graft

== ENCOUNTER 2017-08-03 12:30 | Emergency (ER) | payer MEDICARE ==
[2017-07-01 13:27] VITALS: BMI 32.9
[2017-08-03 14:28] LABS: BASOPHILS 0.1 % (0-2); EOSINOPHILS 1.4 % (0-7); HEMATOCRIT 32.3 % (36.0-48.0); HEMOGLOBIN 10.3 g/dL (12-16); IMMATURE GRANULOCYTES 0.5 % (0-5); LYMPHOCYTES 20.2 % (15-50); MCH 26.9 pg (26.0-34.0); MCHC 31.9 g/dL (31.0-37.0); MCV 84.3 fL (80.0-100.0); MEAN PLATELET VOLUME 9.7 fL (7.4-10.4); MONOCYTES 4.2 % (2-11); NEUTROPHILS 73.6 % (40-80); RBC 3.83 10x6/uL (4.00-5.40); RDW 14.7 % (11.5-14.5); WBC 8.4 10x3/uL (4.8-10.8)
[2017-08-03 14:44] LABS: PLATELET COUNT 411 10x3/uL (130-400)
[2017-08-03 14:54] LABS: APPEARANCE HAZY (CLEAR); BILIRUBIN NEGATIVE (NEGATIVE); COLOR STRAW (YELLOW); GLUCOSE NEGATIVE (NEGATIVE); KETONE NEGATIVE (NEGATIVE); NITRITE NEGATIVE (NEGATIVE); PROTEIN 2+ mg/dL (NEGATIVE); SPECIFIC GRAVITY 1.015 (1.005-1.020); UROBILINOGEN NORMAL (NORMAL)
[2017-08-03 14:57] LABS: BACTERIA MANY /hpf (NONE SEEN); RED CELLS - URINE OCC /hpf (0-5); WHITE CELLS - URINE 25-50 /hpf (0-5)
[2017-08-03 15:05] LABS: ALBUMIN 3.6 g/dL (3.4-5.0); ANION GAP 14.5 mmol/L (8-16); BILIRUBIN - TOTAL 0.14 mg/dL (0.2-1.3); CALCIUM 10.1 mg/dL (8.5-10.1); CARBON DIOXIDE 29.8 mmol/L (21.0-32.0); CREATININE - SERUM 1.7 mg/dL (0.6-1.3); POTASSIUM - SERUM 5.3 mmol/L (3.5-5.1); PROTEIN - SERUM 8.7 g/dL (6.4-8.2)
[2017-08-03 15:10] LABS: MAGNESIUM - SERUM 2.3 mg/dL (1.8-2.4)
== END 2017-08-03 21:03 | disposition home or self-care (01) ==
LOC: D.ER 12:30
PROVIDERS: Emergency Medicine
DX: R11.10 Vomiting, unspecified (principal); R19.7 Diarrhea, unspecified; R10.9 Unspecified abdominal pain; N39.0 Urinary tract infection, site not specified; D64.9 Anemia, unspecified; E86.0 Dehydration; E11.9 Type 2 diabetes mellitus without complications; Z79.4 Long term (current) use of insulin

== ENCOUNTER 2017-09-02 12:17 | Emergency (ER) | payer MEDICARE ==
[2017-07-01 13:27] VITALS: BMI 32.9
[2017-09-02 12:58] LABS: BASOPHILS 0 % (0-2); EOSINOPHILS 0 % (0-7); HEMOGLOBIN 8.8 g/dL (12-16); LYMPHOCYTES 40.4 % (15-50); MCH 25.8 pg (26.0-34.0); MCHC 31.4 g/dL (31.0-37.0); MCV 82.1 fL (80.0-100.0); MEAN PLATELET VOLUME 9.6 fL (7.4-10.4); MONOCYTES 6.7 % (2-11); NEUTROPHILS 52.9 % (40-80); RBC 3.41 10x6/uL (4.00-5.40); RDW 13.9 % (11.5-14.5); WBC 3.6 10x3/uL (4.8-10.8)
[2017-09-02 12:59] LABS: PLATELET COUNT 294 10x3/uL (130-400)
[2017-09-02 13:13] LABS: ALBUMIN 2.7 g/dL (3.4-5.0); ANION GAP 9.4 mmol/L (8-16); BILIRUBIN - TOTAL 0.22 mg/dL (0.2-1.3); CALCIUM 8.2 mg/dL (8.5-10.1); CARBON DIOXIDE 28.6 mmol/L (21.0-32.0); CREATININE - SERUM 1.3 mg/dL (0.6-1.3); PROTEIN - SERUM 6.6 g/dL (6.4-8.2)
[2017-09-02 15:40] LABS: APPEARANCE CLEAR (CLEAR); BILIRUBIN NEGATIVE (NEGATIVE); COLOR YELLOW (YELLOW); GLUCOSE 50 mg/dL (NEGATIVE); KETONE NEGATIVE (NEGATIVE); NITRITE NEGATIVE (NEGATIVE); PROTEIN 1+ mg/dL (NEGATIVE); UROBILINOGEN NORMAL (NORMAL)
[2017-09-02 15:42] LABS: BACTERIA FEW /hpf (NONE SEEN); EPITHELIAL CELLS 0-5 /hpf (0-5)
== END 2017-09-02 19:35 | disposition home or self-care (01) ==
LOC: D.ER 12:17
PROVIDERS: Family Medicine
DX: R19.7 Diarrhea, unspecified (principal); A04.9 Bacterial intestinal infection, unspecified; E11.9 Type 2 diabetes mellitus without complications; Z79.4 Long term (current) use of insulin; I10 Essential (primary) hypertension

== ENCOUNTER → 2017-10-06 13:10 | Outpatient (CLI) | payer MEDICARE ==
[2017-07-01 13:27] VITALS: BMI 32.9
[2017-10-06 18:41] LABS: BILIRUBIN - TOTAL 0.2 mg/dL (0.2-1.3); CALCIUM 9.4 mg/dL (8.5-10.1); CARBON DIOXIDE 29.1 mmol/L (21.0-32.0); CREATININE - SERUM 1.2 mg/dL (0.6-1.3); POTASSIUM - SERUM 4.1 mmol/L (3.5-5.1)
[2017-10-06 18:43] LABS: APPEARANCE CLEAR (CLEAR); BILIRUBIN NEGATIVE (NEGATIVE); COLOR YELLOW (YELLOW); GLUCOSE NEGATIVE (NEGATIVE); KETONE NEGATIVE (NEGATIVE); NITRITE NEGATIVE (NEGATIVE); PROTEIN 1+ mg/dL (NEGATIVE); UROBILINOGEN NORMAL (NORMAL)
== END | disposition home or self-care (01) ==
LOC: D.LABREF 13:10
PROVIDERS: Family Medicine
DX: E11.9 Type 2 diabetes mellitus without complications (principal); N18.9 Chronic kidney disease, unspecified

== ENCOUNTER 2018-03-30 08:30 | Outpatient (CLI) | payer MEDICARE ==
[~2018-03-30] VITALS: Ht 157.5 cm; Wt 81.8 kg
--- NOTE | ~2018-03-30 | HEMODYNAMI ---
PATIENT:ANGIE LOPEZ MEDICAL RECORD: [id number] : [birth year] LOCATION:SARA ADMISSION DATE: 03/30/18 Generatedon:03/30/201811:15 Patient name: ANGIE LOPEZ Patient #: [id number] SSN: : Date of study: 03/30/2018 Page: Of Hemodynamic Procedure Report Patient Data Patient Demographics Procedure consent was obtained First Name: ANGIE Gender: Female Last Name: JOHN : 1955 [facility] Initial: MANNY Age: 62 year(s) Patient #: [id number] Race: Black Additional ID: [id number] Contact details Address: [address] [place] [address] State: [place] City: [place] Zip code: [address] Past Medical History Allergies Allergen Reaction Date Comments Reported Iodine 03/30/2018 Admission Admission Data Admission Date: 03/30/2018 Admission Time: 8:30 Height (in.): 5.3 BSA: 0.31 (m2) Height (cm.): 13.46 BMI: 4605.37 (kg/m2) Weight (lbs.): 184 Weight (kg.): 83.46 Lab Results Lab Result Date: 03/30/2018 Lab Result Time: 0:00 Biochemistry Name Units Result Min Max BUN mg/dl 39 --(----)-* 7 18 Creatinine mg/dl 2.1 --(----)-* 0.6 1.3 CBC Name Units Result Min Max Hemoglobin g/dl 11 *-(----)-- 13.5 17.5 Procedure Procedure Types Cath Procedure Diagnostic Procedure LHC LHC w/Coronaries Peripheral Cath Diagnostic Procedure Cath Peripheral Dyoya-Zwfaehu-Qmi-Off Procedure Description Procedure Date Procedure Date: 03/30/2018 Procedure Start Time: 11:06 Procedure End Time: 11:14 Procedure Staff Name Function Zia Trevino MD Performing Physician Caterina Alcala RT Monitor Candi Roman RT Scrub Lang Lorigan RN Nurse Procedure Data Cath Procedure Fluoroscopy Diagnostic fluoroscopy Total fluoroscopy dose: 409 dose: 409 mGy mGy Contrast Material Contrast Material Type Amount (ml) Isovue 300 84 Entry Location Entry Primary Successful Side Size Upsize Upsize Entry Closure Succes sful Closure Location (Fr) 1 (Fr) 2 (Fr) Remarks Device Remarks Femoral Right 5 Fr Exoseal artery Estimated blood loss: 5 ml Diagnostic catheters Device Type Used For End Catheter Placement MULTIPACK Pigtail 5 Fr Procedure catheter MULTIPACK JL 4.0 5Fr Procedure catheter MULTIPACK 3DRC 5Fr Procedure catheter Procedure Complications No complications Procedure Medications Medication Administration Route Dosage 0.9% NaCl I.V. 100 ml/hr Oxygen etCO2 Nasal cannula 2 l/min Heparin Flush Bag added to field 2 bags (1000units/500ml NS) Lidocaine 2% added to field 20 Versed I.V. 1 mg Fentanyl I.V. 50 mcg Versed I.V. 1 mg Fentanyl I.V. 50 mcg Hemodynamics Rest BSA: 0.31 (m2) HGB: 11 (g/dl) O2 Consumption: Estimated: 28.43 (ml/min) O2 Consu mption indexed: Estimated:91.71 (ml/min/m) Heart Rate: 62 (bpm) Snapshots Pre Cath Intra NCS Post Cath Vital Signs Time Heart Resp SPO2 etCO2 NIBP (mmHg) Rhythm Pain Sedation Rate (ipm) (%) (mmHg) Status Level (bpm) 10:48:41 62 46 94 0 181/100(150) NSR 0 (11) 10(A) , No pain 10:53:45 62 12 94 0 175/96(144) NSR 0 (11) 10(A) , No pain 10:58:41 61 14 96 0 162/86(132) NSR 0 (11) 10(A) , No pain 11:03:34 60 26 96 0 160/89(129) NSR 0 (11) 10(A) , No pain 11:08:25 72 12 97 0 156/92(133) NSR 0 (11) 9(A) , No pain 11:13:16 66 20 96 0 162/91(134) NSR 0 (11) 9(A) , No pain Medications Time Medication Route Dose Verified Delivered Reason Notes Eff ectiveness by by 10:51:16 0.9% NaCl I.V. 100 Lang Lang Per ml/hr Issac Davenport physician RN RN 10:51:28 Oxygen etCO2 2 Lang Lang Per Nasal l/min Issac Davenport physician cannula RN RN 10:51:53 Heparin Flush added 2 Lang Lang used for Bag to bags Lorfidelina Davenport procedure (1000units/500ml field RN RN NS) 10:52:06 Lidocaine 2% added 20ml Lang Lang for local to vial Lorigan Lorigan anesthetic field RN RN 11:01:34 Versed I.V. 1 mg Lang Lang for Lorigan Lorigan sedation RN RN 11:01:59 Fentanyl I.V. 50 Lang Lang for mcg Lorigan Lorigan sedation RN RN 11:07:10 Versed I.V. 1 mg Lang Lang for Lorigan Lorigan sedation RN RN 11:07:16 Fentanyl I.V. 50 Lang Lang for mcg Lorigan Lorigan sedation RN cattle trader Log Time Note 10:23:43 Signed procedure consent form obtained from patient. 10:24:10 Lang Davenport RN sent for patient. Start room use. 10:24:11 Time tracking: Regular hours (M-F 7:00 - 5:00) 10:24:15 Plan of Care:Hemodynamics will remain stable., Cardiac rhythm will remain stable., Comfort level will be maintained., Respiratory function will remain adequate., Patient/ family verbilizes understanding of procedure., Procedure tolerated without complication., Recovers from procedure without complications.. 10:24:27 H&P Date Dictated: 02/28/2018 Within 30 days and on chart., H&P Addendum completed by physician on day of procedure. (MUST COMPLETE FOR ALL OUTPATIENTS). 10:24:34 Patient allergic to Iodine 10:24:44 Patient Height : 5.3 inches 10:24:50 Patient Weight : 184 lbs 10:28:10 Lab Result : BUN 39 mg/dl 10:28:10 Lab Result : Hemoglobin 11 g/dl 10:28:10 Lab Result : Creatinine 2.1 mg/dl 10:41:34 Patient received from Pre/Post Procedure Room to CCL 1 Alert and oriented. Tansferred to table in Supine position. 10:41:35 Warm blankets applied, and julia hugger turned on for patient comfort. 10:41:36 Correct patient and procedure confirmed by team. 10:41:36 ECG and BP/O2 sat monitors applied to patient. 10:46:37 Vital chart was started 10:46:38 Baseline sample Acquired. 10::42 Full Disclosure recording started 10:46:42 Pre-procedure instructions explained to patient. 10:46:43 Pre-op teaching completed and patient verbalized understanding. 10:46:45 Family in waiting room. 10:46:51 Is the patient allergic to Iodine/contrast media? Yes. 10:46:52 Was the patient premedicated? Yes 10:46:53 Is patient on blood thinner?No 10:46:56 Patient diabetic? Yes. 10:46:59 If diabetic: On Metformin? No 10:47:02 Previous problem with sedation/anesthesia? No ? 10:51:16 0.9% NaCl 100 ml/hr I.V. was administered by Lang Davenport RN; Per physician; 10:51:28 Oxygen 2 l/min etCO2 Nasal cannula was administered by Lang Davenport RN; Per physician; 10:51:53 Heparin Flush Bag (1000units/500ml NS) 2 bags added to field was administered by Lang Davenport RN; used for procedure; 10:51:57 Snore? Yes 10:51:58 Sleep apnea? No 10:51:59 Deviated septum? No 10:52:00 Opens mouth fully? Yes 10:52:01 Sticks out tongue? Yes 10:52:02 Airway obstruction? No ? 10:52:05 Dentures? No ? 10:52:06 Lidocaine 2% 20ml vial added to field was administered by Lang Davenport RN; for local anesthetic; 10:52:08 Pre procedure: right dorsailis pedis pulse 2+ Normal; easily identifiable; not easily obliterated 10:52:12 Patient pain scale 0/10 ?. 10:52:15 IV patent on arrival in left hand with 0.9% NaCl at [facility]. 10:52:17 Lab results completed and on chart. 10:52:21 Right groin area was prepped with chlora-prep and draped in sterile fashion 10:52:21 Alarms reviewed by R. N. 10:52:22 Sharps counted by scrub and verified by R.N. 10:52:24 Use device set Femoral Dx 10:52:26 ACIST Syringe (56395) opened to sterile field. 10:52:26 Bag Decanter (2001S) opened to sterile field. 10:52:27 ACIST Hand Control (36350) opened to sterile field. 10:52:28 ACIST Manifold (60227) opened to sterile field. 10:52:28 Tegaderm 4 x 4 (1626W) opened to sterile field. 10:52:29 Medline Cath Pack ([id number]) opened to sterile field. 10:52:30 DIAGNOSTIC WIRE .035 260cm J wire (961742) opened to sterile field. 10:52:34 DIAGNOSTIC Multipack 5Fr catheter set (QI1699) opened to sterile field. 10:52:35 SHEATH Prelude 5Fr 0.035 (YFA-2Z-02-035) opened to sterile field. 10:58:08 Zero performed for pressure channel P1 :: --------ALL STOP TIME OUT------ :: Final Timeout: patient, procedure, and site verified with staff and physician. All members of the team are in agreement. :00:28 Right groin site verified by team. :00:31 Physical assessment completed. ASA score P 2 - A patient with mild systemic disease as per Zia Trevino MD. 11:00:35 Sedation plan: IV Moderate Sedation Medication:Versed, Fentanyl :34 Versed 1 mg I.V. was administered by Lang Davenport RN; for sedation; 11::59 Fentanyl 50 mcg I.V. was administered by Lang Davenport RN; for sedation; 11:06:19 Procedure started. ::31 Local anesthetic to right femoral artery with Lidocaine 2% by Zia Trevino MD.INITIAL ACCESS ONLY 11:07:05 Baseline sample Acquired. 11:07:10 Versed 1 mg I.V. was administered by Lang Davenport RN; for sedation; 11:07:10 Rhythm: sinus rhythm 11:07:16 Fentanyl 50 mcg I.V. was administered by Lang Davenport RN; for sedation; 11:08: A 5 Fr sheath was inserted into the Right Femoral artery 11:08:12 A MULTIPACK Pigtail 5 Fr catheter was advanced over the wire and used for Procedure. ::28 LV gram done using SOSA ::34 Injector settings: Ml/sec: 10, Volume: 20, 11:08:45 EF : 50 % 11:09:05 CATH PULLED DOWN FOR AFRO 11:09:13 Abdominal angiogram w/ runoff was performed. 11:09:18 Left leg runoff performed. 11:09:48 Right leg runoff performed. 11:09:52 Catheter removed. 11:10:20 A MULTIPACK JL 4.0 5Fr catheter was advanced over the wire and used for Procedure. 11:10:57 LCA angiography performed. 11:11:26 Catheter removed. 11:11:32 A MULTIPACK 3DRC 5Fr catheter was advanced over the wire and used for Procedure. 11:12:04 RCA angiography performed. 11:12:05 Catheter removed. 11:12:10 EXOSEAL 5Fr (EX500) opened to sterile field. 11:12:27 Sheath removed intact; hemostasis achieved with Exoseal to the Right Femoral artery. 11:12:34 Procedure ended.(Physican Out) 11:13:22 Fluoroscopy dose: 409 mGy 11:13:22 Flurop Dose total: 409 11:13:25 Contrast amount:Isovue 300 84ml. 11:13:27 Sharps counted by scrub and verified by R.N. 11:13:30 Post-op/insertion site Right Femoral artery dressed using a 4 x 4 and Tegaderm. 11:13:35 Post procedure: right dorsailis pedis pulse 2+ Normal; easily identifiable; not easily obliterated. 11:13:47 Post-procedure physical assessment completed. ASA score P 2 - A patient with mild systemic disease as per Zia Trevino MD. 11:13:50 Post procedure rhythm: sinus rhythm 11:13:54 Estimated blood loss: 5 ml 11:13:56 Post procedure instruction explained to patient.Patient verbalizes understanding. 11:13:57 Patient needs reinforcement of post procedure teaching. 11:14:21 Procedure type changed to Cath procedure, Diagnostic procedure, LHC, LHC w/Coronaries, Peripheral Cath Diagnostic Procedure, Cath Peripheral, Gsisz-Werzozy-Sos-Off 11:14:37 Procedure and supply charges have been captured, reviewed, submitted and are correct. 11:14:40 Procedure Complication : No complications 11:14:48 Vital chart was stopped 11:14:49 See physician's report for complete and final results. 11:14:53 Report given to Pre/Post Procedure Room. 11:14:56 Patient transfered to Pre/Post Procedure Room with Bed. 11:14:58 Procedure ended. 11:14:58 Full Disclosure recording stopped 11:15:02 End room use (Document Last) Device Usage Item Name Manufacture Quantity Catalog Number Hospital Part Current M inimal Lot# / Charge Number Stock Stock Serial# Code ACIST Syringe Acist 1 38216 229865 396446 318484 2 0 (93309) Medical Systems WeoGeo Bag Decanter Microtek 1 471677 97784 348707 5 () Medical Inc. ACIST Hand Acist 1 77623 842673 389382 460075 5 Control (83277) Medical Systems WeoGeo ACIST Manifold Acist 1 34265 423141 516218 945025 5 (55700) Medical Systems Inc Tegaderm 4 x 4 3M 1 1626W 738104 753238 720224 5 (1626W) Medline Cath Cardinal 1 [id number] 645062 90352 076219 5 BioAmber Health ([id number]) DIAGNOSTIC WIRE [facility] [place] 1 379985 826724 739125 733820 3 0 .035 260cm J wire (992727) DIAGNOSTIC Cardinal 1 DG5290 102477 38214 958058 3 0 Multipack 5Fr Health catheter set (ZF1951) SHEATH Prelude Merit 1 CEH-8H-04-035 492185 065687 598478 5 5Fr 0.035 Medical (LQW-9X-96-035) MULTIPACK Cardinal 1 770078 5 Pigtail 5 Fr Health catheter MULTIPACK JL Cardinal 1 224209 5 4.0 5Fr Health catheter MULTIPACK 3DRC Cardinal 1 672249 5 5Fr catheter Health EXOSEAL 5Fr Cardinal 1 EX500 276467 568192 328277 1 0 (EX500) Health Signature Audit [place] Stage Time Signature Unsigned Intra-Procedure 03/30/2018 Caterina Alcala 11:15:46 AM RT(R) Signatures Monitor : Caterina Alcala Signature : RT Date : Time : [id number] [place] [address]
--- NOTE | ~2018-03-30 | OP ---
PATIENT NAME: ANGIE LOPEZ MEDICAL RECORD: [id number] :[birth year] LOCATION:D.CAT ADMISSION DATE: SURGEON: ALONDRA DOTSON MD DATE OF OPERATION: 03/30/2018 PROCEDURES: 1. Left heart catheterization. 2. Selective coronary angiography. 3. Left ventriculogram. 4. Abdominal aortography. 5. Aortofemoral runoff. INDICATION: Claudication, peripheral vascular disease, angina and coronary artery disease. PROCEDURE IN DETAIL: After informed consent was obtained and after detailed explanation of risks, benefits as well as alternative therapies, the patient elected to proceed with angiogram and heart catheterization. The right femoral area was prepped and draped in normal sterile fashion. Right femoral artery was cannulated via modified Seldinger technique with placement of 5-Namibian sheath. All catheters exchanged through this sheath. FINDINGS: Left ventriculogram was performed in standard 30-degree SOSA view, reveals good cardiac wall motion throughout all segments. Overall ejection fraction estimated 60%. SELECTIVE CORONARY ANGIOGRAPHY: Left main, left anterior descending, left circumflex, right coronary all have only minimal irregularities, no flow-limiting stenosis. No stenosis greater than 10%. Abdominal aortography was performed. The catheter was pulled down for aortofemoral runoff. Abdominal aortography reveals no significant abdominal aortic disease, no renal artery stenosis. RIGHT LEG: A. Iliac: The common internal and external iliacs have moderate irregularities, but no flow-limiting stenosis. B. Femoral system: The common superficial and deep femoral have moderate irregularities, but no flow-limiting stenosis. C. Popliteal and infrapopliteal vessels are widely patent with good 3-vessel runoff to the foot. LEFT LEG: A. Iliac: The common internal and external iliacs have moderate irregularities, but no flow-limiting stenosis. B. Femoral system: The common superficial and deep femoral have moderate irregularities, but no flow-limiting stenosis. C. Popliteal and infrapopliteal vessels are widely patent with good 3-vessel runoff to the foot. OVERALL IMPRESSION: 1. Minimal coronary artery disease is present. No flow-limiting stenosis. 2. Minimal peripheral vascular disease is present. No flow-limiting stenosis. No other cardiac or peripheral workup needs to be ascertained at this time. OPERATIVE REPORT [id number] ANGIE LOPEZ MANNY TRANSINT:[id number] Voice Confirmation ID: [id number] DOCUMENT ID: [id number] ALONDRA DOTSON MD at 1728 CC: [id number] DICTATION DATE: 03/30/18 1117 JAVASCRIPT UI DEVELOPER: 03/30/18 1143 DEP CLI 03/30/18 [address] [place] [address]
[2018-03-30 09:21] VITALS: BP 168/78; Ht 157.5 cm; Wt 81.8 kg
[2018-03-30 09:44] LABS: BASOPHILS 0 % (0-2); EOSINOPHILS 0 % (0-7); HEMATOCRIT 31.7 % (36.0-48.0); IMMATURE GRANULOCYTES 0.2 % (0-5); LYMPHOCYTES 14.5 % (15-50); MCH 29.1 pg (26.0-34.0); MCHC 34.7 g/dL (31.0-37.0); MCV 83.9 fL (80.0-100.0); MEAN PLATELET VOLUME 10.1 fL (7.4-10.4); MONOCYTES 0.5 % (2-11); NEUTROPHILS 84.8 % (40-80); PLATELET COUNT 307 10x3/uL (130-400); RBC 3.78 10x6/uL (4.00-5.40); RDW 12.3 % (11.5-14.5); WBC 6.5 10x3/uL (4.8-10.8)
[2018-03-30 09:58] LABS: ANION GAP 11.8 mmol/L (8-16); CALCIUM 8.6 mg/dL (8.5-10.1); CARBON DIOXIDE 26.7 mmol/L (21.0-32.0); CREATININE - SERUM 2.1 mg/dL (0.6-1.3); POTASSIUM - SERUM 5.5 mmol/L (3.5-5.1)
== END 2018-03-30 13:40 | disposition home or self-care (01) ==
LOC: D.CATH 08:30
PROVIDERS: Internal Medicine Interventional Cardiology
DX: I25.119 Atherosclerotic heart disease of native coronary artery with unspecified angina pectoris (principal); I70.219 Atherosclerosis of native arteries of extremities with intermittent claudication, unspecified extremity; Z01.812 Encounter for preprocedural laboratory examination

== ENCOUNTER 2018-06-24 13:22 | Emergency (ER) | payer MEDICARE ==
[~2018-06-24] VITALS: Ht 157.5 cm; Wt 81.8 kg
[2018-06-24 13:25] VITALS: Ht 157.5 cm; Wt 81.8 kg
[2018-06-24 15:48] LABS: BASOPHILS 0 % (0-2); EOSINOPHILS 0.2 % (0-7); HEMATOCRIT 34.7 % (36.0-48.0); HEMOGLOBIN 11.8 g/dL (12-16); IMMATURE GRANULOCYTES 0.5 % (0-5); LYMPHOCYTES 24.8 % (15-50); MCH 29.1 pg (26.0-34.0); MCV 85.5 fL (80.0-100.0); MEAN PLATELET VOLUME 11.6 fL (7.4-10.4); MONOCYTES 4.7 % (2-11); NEUTROPHILS 69.8 % (40-80); PLATELET COUNT 270 10x3/uL (130-400); RBC 4.06 10x6/uL (4.00-5.40); RDW 13.2 % (11.5-14.5)
[2018-06-24 15:57] LABS: KETONE - SERUM NEGATIVE (NEGATIVE)
[2018-06-24 16:04] LABS: ALBUMIN 3.1 g/dL (3.4-5.0); ALKALINE PHOSPHATASE 80 U/L (46-116); ALT (SGPT) 21 U/L (10-68); AMYLASE - SERUM 57 U/L (25-115); CALC OSMOLALITY 314 mosm/kg (275-300); CALCIUM 9.4 mg/dL (8.5-10.1); CARBON DIOXIDE 23.5 mmol/L (21.0-32.0); CHLORIDE - SERUM 108 mmol/L (98-107); CREATININE - SERUM 2.1 mg/dL (0.6-1.3); LIPASE 126 U/L (73-393); MAGNESIUM - SERUM 2.4 mg/dL (1.8-2.4); POTASSIUM - SERUM 4.3 mmol/L (3.5-5.1); PROTEIN - SERUM 7.5 g/dL (6.4-8.2); SODIUM 146 mmol/L (136-145); UREA NITROGEN 33 mg/dL (7-18); eGFR NON AFRICAN AMERICAN 25 mL/min (90-120)
[2018-06-24 16:16] LABS: GLUCOSE 405 mg/dL (74-106)
[2018-06-24 18:03] LABS: APPEARANCE CLEAR (CLEAR); BILIRUBIN NEGATIVE (NEGATIVE); COLOR YELLOW (YELLOW); GLUCOSE 1000 mg/dL (NEGATIVE); KETONE NEGATIVE (NEGATIVE); NITRITE NEGATIVE (NEGATIVE); PROTEIN 3+ mg/dL (NEGATIVE); SPECIFIC GRAVITY 1.015 (1.005-1.020); UROBILINOGEN NORMAL (NORMAL)
[2018-06-24 18:04] LABS: EPITHELIAL CELLS OCC /hpf (0-5); RED CELLS - URINE OCC /hpf (0-5); WHITE CELLS - URINE RARE /hpf (0-5)
[2018-06-24] MEDS ORDERED: ZOFRAN8 MG PO (21:21)
[2018-06-24 22:20] VITALS: BP 154/89
== END 2018-06-24 22:41 | disposition home or self-care (01) ==
LOC: D.ER 13:22
PROVIDERS: Emergency Medicine
DX: D64.9 Anemia, unspecified (principal); E11.65 Type 2 diabetes mellitus with hyperglycemia; Z79.4 Long term (current) use of insulin; B34.9 Viral infection, unspecified; Z86.73 Personal history of transient ischemic attack (TIA), and cerebral infarction without residual deficits; I10 Essential (primary) hypertension; K21.9 Gastro-esophageal reflux disease without esophagitis

== ENCOUNTER 2018-10-24 19:01 | Inpatient (IN) | payer MEDICARE ==
[~2018-10-24] VITALS: Ht 157.5 cm; Wt 90.0 kg
[~2018-10-24 19:01] MED LIST changes: +ZOFRAN8 MG PO
[2018-10-24 19:20] VITALS: BP 163/75
--- NOTE | 2018-10-24 19:38 | NUR ---
URINE SPECIMEN SENT TO LAB.
[2018-10-24 19:49] LABS: APPEARANCE CLEAR (CLEAR); BILIRUBIN NEGATIVE (NEGATIVE); COLOR YELLOW (YELLOW); EPITHELIAL CELLS 0-5 /hpf (0-5); GLUCOSE 250 mg/dL (NEGATIVE); KETONE NEGATIVE (NEGATIVE); NITRITE NEGATIVE (NEGATIVE); PROTEIN 1+ mg/dL (NEGATIVE); RED CELLS - URINE 0-5 /hpf (0-5); UROBILINOGEN NORMAL (NORMAL)
[2018-10-24 19:51] LABS: BACTERIA MODERATE /hpf (NONE SEEN); WHITE CELLS - URINE 0-5 /hpf (0-5)
[2018-10-24 20:01] LABS: BASOPHILS 0.1 % (0-2); EOSINOPHILS 0.3 % (0-7); HEMATOCRIT 30.7 % (36.0-48.0); HEMOGLOBIN 10.2 g/dL (12-16); IMMATURE GRANULOCYTES 0.2 % (0-5); LYMPHOCYTES 9.5 % (15-50); MCH 28.7 pg (26.0-34.0); MCHC 33.2 g/dL (31.0-37.0); MCV 86.2 fL (80.0-100.0); MEAN PLATELET VOLUME 10.5 fL (7.4-10.4); MONOCYTES 3.1 % (2-11); NEUTROPHILS 86.8 % (40-80); PLATELET COUNT 252 10x3/uL (130-400); RBC 3.56 10x6/uL (4.00-5.40); RDW 12.4 % (11.5-14.5); WBC 8.6 10x3/uL (4.8-10.8)
--- NOTE | 2018-10-24 20:11 | NUR ---
FLU SWAB SENT TO LAB
--- NOTE | 2018-10-24 20:15 | NUR ---
IV ATTEMPTED X3. PT REFUSING IV AT THIS TIME. ERIC CARROLL NOTIFIED.
[2018-10-24 20:16] LABS: INR 1.03 (0.85-1.17)
[2018-10-24 20:23] LABS: ALBUMIN 2.5 g/dL (3.4-5.0); ALKALINE PHOSPHATASE 70 U/L (46-116); ALT (SGPT) 19 U/L (10-68); BILIRUBIN - TOTAL 0.24 mg/dL (0.2-1.3); CALC OSMOLALITY 306 mosm/kg (275-300); CALCIUM 8.1 mg/dL (8.5-10.1); CHLORIDE - SERUM 107 mmol/L (98-107); CREATININE - SERUM 2.5 mg/dL (0.6-1.3); POTASSIUM - SERUM 4.5 mmol/L (3.5-5.1); PROTEIN - SERUM 5.9 g/dL (6.4-8.2); SODIUM 146 mmol/L (136-145); UREA NITROGEN 40 mg/dL (7-18); eGFR NON AFRICAN AMERICAN 21 mL/min (90-120)
[2018-10-24 20:28] LABS: GLUCOSE 208 mg/dL (74-106)
[2018-10-24 20:41] LABS: AMYLASE - SERUM 44 U/L (25-115); CKMB 0.7 U/L (0.0-3.6); CREATINE KINASE 127 UL (21-215); LIPASE 115 U/L (73-393)
[2018-10-24 20:43] LABS: TROPONIN-I 0.079 ng/mL (0.000-0.060)
--- NOTE | 2018-10-24 20:48 | NUR ---
R EJ PLACED BY PA. YUSEF CARROLL AT BEDSIDE. PT TOLERATED WELL.
[2018-10-24 20:55] VITALS: BP 175/128
--- NOTE | 2018-10-24 21:01 | NUR ---
PT LEFT ED VIA STRETCHER FOR CT.
--- NOTE | 2018-10-24 21:14 | NUR ---
PT RETURNED FROM CT.
[2018-10-24 22:20] VITALS: BP 147/74
--- NOTE | 2018-10-24 22:25 | NUR ---
R EJ NO LONGER WORKING. EDP NOTIFIED. ATTEMPT AT L EJ IV PLACEMENT PERFORMED BY ERIC CARROLL AND WAS UNSUCCESSFUL.
--- NOTE | 2018-10-24 22:45 | NUR ---
PT STABLE, CALL LIGHT WITHIN REACH, DENIES NEEDS, FAMILY AT BEDSIDE, WILL CONTINUE TO MONITOR.
--- NOTE | 2018-10-24 22:55 | NUR ---
20G IV PLACED IN L AC, IV POSITIONAL AT THIS TIME. NS INFUSION AT 250 ML/HR
[2018-10-24 23:00] VITALS: BP 159/52
[2018-10-25] VITALS (10 sets, daily range): BP systolic 148–168; BP diastolic 69–736; Ht 157.5 cm; Wt 90.0 kg
--- NOTE | 2018-10-25 00:05 | NUR ---
PT SLEEPING ON BED. NO S/S OF ACUTE DISTRESS NOTED.
--- NOTE | 2018-10-25 00:58 | NUR ---
PT PROVIDED DIET, CLEAR CARBONATED BEVERAGE PER PT REQUEST.
--- NOTE | 2018-10-25 01:00 | NUR ---
MERREM INFUSION COMPLETE AT THIS TIME.
--- NOTE | 2018-10-25 01:45 | NUR ---
PT SLEEPING ON BED, NO S/S OF ACUTE DISTRESS NOTED.
--- NOTE | 2018-10-25 03:11 | NUR ---
PT ARRIVED TO UNIT VIA STRETCHER ACCOMPANIED BY ER STAFF. AAOX4. 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 ORIENTED TO ROOM, NURSE, AND CALL MEJIA SYSTEM. VERBALIZES UNDERSTANDING. LEFT AC PIV INFUSING MD ORDERED FLUIDS. C/O CHRONIC BACK PAIN OF 5/10. VOICES NO CONCERNS OR REQUESTS AT THIS TIME. SAFETY MEASURES IN PLACE.
--- NOTE | 2018-10-25 04:14 | NUR ---
CALL LIGHT USED BY PT. REQUESTS BED GARCIA. ONE VOID NOTED.
--- NOTE | 2018-10-25 07:48 | NUR ---
ASSISTED ONTO BEDPAN. 400 CC VOID NOTED. WILL CONTINUE TO MONITO R
--- NOTE | 2018-10-25 07:48 | NUR ---
REPORT RECEIVED. ASSESSMENT COMPLETE PER FLOW SHEET. VSS. NO NEW CHANGES WILL CONTINUE TO MONITOR
--- NOTE | 2018-10-25 09:00 | NUR ---
DR. ZAMAN AT BEDSIDE, UPDATE GIVEN
--- NOTE | 2018-10-25 09:35 | NUR ---
CONSULT CALLED IN DR OTOOLE ACCOUNTS ADJUSTABLE CLERK GIVEN UPDATE.
[2018-10-25 10:38] LABS: % SATURATION 19 % (15-55); IRON 36 ug/dl (35-150); TOTAL IRON BIND CAPACITY 185 ug/dl (260-445); UNSAT IRON BIND CAPACITY 149 ug/dl (150-375)
[2018-10-25 10:43] LABS: CALCIUM 7.1 mg/dL (8.5-10.1); CREATININE - SERUM 2.4 mg/dL (0.6-1.3)
--- NOTE | 2018-10-25 10:59 | NUR ---
REPORT CALLED TO [facility]. TRANSFERED VIA BED. NEEDS MET FAMILY AT BEDSIDE GIVEN UPDATE
[2018-10-25 11:19] LABS: HEMATOCRIT 25.2 % (36.0-48.0); HEMOGLOBIN 8.4 g/dL (12-16); MCH 28.6 pg (26.0-34.0); MCHC 33.3 g/dL (31.0-37.0); MCV 85.7 fL (80.0-100.0); MEAN PLATELET VOLUME 10.6 fL (7.4-10.4); PLATELET COUNT 220 10x3/uL (130-400); RBC 2.94 10x6/uL (4.00-5.40); RDW 12.7 % (11.5-14.5)
[2018-10-25 11:32] LABS: WBC 3.6 10x3/uL (4.8-10.8)
[2018-10-25 11:35] LABS: EOSINOPHILS 2 % (0-7); LYMPHOCYTES 18 % (15-50); MONOCYTES 11 % (2-11); NEUTROPHILS 68 % (40-80); PLATELET ESTIMATE NORMAL
--- NOTE | 2018-10-25 12:00 | NUR ---
FSBS 233. GIVEN 4 UNITS REGULAR SUBQ PER SS.
--- NOTE | 2018-10-25 18:42 | NUR ---
ATE ALL OF SUPPER. NO CHANGES NOTED. DENIES NEEDS.
--- NOTE | 2018-10-25 20:00 | NUR ---
ALERT RESTING IN BED RESP UNLABORED, IV INFUSING WITHOUT DICCICULTY, SEE SHIFT ASSESSMENT CALL MILENA KAUR
[2018-10-26 00:40] VITALS: BP 152/72
[2018-10-26 04:47] VITALS: BP 131/61
[2018-10-26 05:30] LABS: BASOPHILS 0 % (0-2); EOSINOPHILS 2.4 % (0-7); HEMOGLOBIN 8.9 g/dL (12-16); IMMATURE GRANULOCYTES 0.3 % (0-5); LYMPHOCYTES 47.9 % (15-50); MCH 28.3 pg (26.0-34.0); MEAN PLATELET VOLUME 10.4 fL (7.4-10.4); MONOCYTES 10.4 % (2-11); PLATELET COUNT 233 10x3/uL (130-400); RBC 3.14 10x6/uL (4.00-5.40); RDW 12.4 % (11.5-14.5); WBC 2.9 10x3/uL (4.8-10.8)
[2018-10-26 05:54] LABS: ANION GAP 9.2 mmol/L (8-16); BILIRUBIN - DIRECT 0.07 mg/dL (0.00-0.30); BILIRUBIN - INDIRECT 0.01 mg/dL (0.00-1.00); BILIRUBIN - TOTAL 0.08 mg/dL (0.2-1.3); CARBON DIOXIDE 27.7 mmol/L (21.0-32.0); CREATININE - SERUM 2.2 mg/dL (0.6-1.3); POTASSIUM - SERUM 3.9 mmol/L (3.5-5.1); PROTEIN - SERUM 5.3 g/dL (6.4-8.2)
[2018-10-26 06:56] LABS: ALBUMIN 1.8 g/dL (3.4-5.0)
[2018-10-26 06:57] LABS: CALCIUM 6.9 mg/dL (8.5-10.1)
--- NOTE | 2018-10-26 08:00 | NUR ---
MORNING ASSESSMENT COMPLETE. SEE ASSESSMENT FLOWSHEET FOR FURTHER DETAILS. PT LYING IN BED AAO X4 TO PERSON, PLACE, TIME, AND SITUATION. PT BLIND. DENIES NEED OF HELP WITH BREAKFAST. NO FURTHER NEEDS AT THIS TIME. CL IN REACH. SIDE RAILS UP X3 FOR PATIENT SAEFTY. BED IN LOWEST POSITION.
[2018-10-26 09:17] LABS: FOLATE (FOLIC ACID) - SERUM 17.8 ng/mL (>3.0)
[2018-10-26 09:19] VITALS: BP 174/79
[2018-10-26 12:43] VITALS: BP 137/80
[2018-10-26 16:14] VITALS: BP 145/70
--- NOTE | 2018-10-26 16:23 | MORECARE ---
CASE MANAGEMENT DISCHARGE SUMMARY PATIENT: ANGIE LOPEZ MANNY UNIT: [id number] ADM DATE: 10/25/18 AGE: 62 : 59 SEX: F ROOM/BED: D.[facility] AUTHOR: DAMARIS PEREZ PHYSICIAN: REFERRING PHYSICIAN: CARMEN SHIN MD DATE OF SERVICE: 10/26/18 Discharge Plan Patient Name: ANGIE LOPEZ [facility] [facility] 1955 Planned Disposition: Anticipated Discharge Date: Discharge Date: Expected LOS: Initial Reviewer: [email or web address] Initial Review Date: 10/26/2018 Generated: 10/26/18 5:23 pm Comments DCP- Discharge Planning Updated by [email or web address]: Wanda Wilde on 10/26/18 3:[address] CM went to room to meet with patient, she is asleep and I did not awaken her. I will meet with her in the morning. CM will continue to follow and assist with discharge planning/needs. Patient Name: ANGIE LOPEZ Page [phone] at 1623 All edits/amendments must be made on the electronic document DICTATION DATE: 10/26/181622 COMMERCIAL SALES DIRECTOR: BORA 10/26/181622 RPT#: [id number] DC DATE: STATUS: ADM IN [facility] [address] [place] [address] END OF REPORT
[2018-10-26 21:02] VITALS: BP 157/86
--- NOTE | 2018-10-26 23:45 | NUR ---
REMINDED PT SHE IS NPO PAST MIDNIGHT. PT COMPLIANT. WILL CONTINUE TO ONITOR.
[2018-10-27 04:46] VITALS: BP 145/74
[2018-10-27 06:31] LABS: BASOPHILS 0.2 % (0-2); HEMOGLOBIN 8.8 g/dL (12-16); IMMATURE GRANULOCYTES 0.2 % (0-5); LYMPHOCYTES 40.4 % (15-50); MCH 28.7 pg (26.0-34.0); MCHC 33.8 g/dL (31.0-37.0); MCV 84.7 fL (80.0-100.0); MEAN PLATELET VOLUME 9.8 fL (7.4-10.4); MONOCYTES 9.6 % (2-11); NEUTROPHILS 46.6 % (40-80); PLATELET COUNT 215 10x3/uL (130-400); RBC 3.07 10x6/uL (4.00-5.40); RDW 12.3 % (11.5-14.5)
[2018-10-27 06:32] LABS: WBC 4.1 10x3/uL (4.8-10.8)
[2018-10-27 06:44] LABS: INR 0.93 (0.85-1.17)
[2018-10-27 06:48] LABS: ANION GAP 8.7 mmol/L (8-16); CALCIUM 7.1 mg/dL (8.5-10.1); CARBON DIOXIDE 27.3 mmol/L (21.0-32.0); CREATININE - SERUM 2.3 mg/dL (0.6-1.3)
[2018-10-27 09:35] VITALS: BP 156/76
--- NOTE | 2018-10-27 10:00 | NUR ---
MORNING ASSESSMENT COMPLETE. SEE ASSESSMENT FLOWSHEET FOR FURTHER DETAILS. PT LYING IN BED AAO X4 TO PERSON, PLACE, TIME, AND SITUATION. DENIES NEEDS AT THIS TIME. CL IN REACH. SIDE RAILS UP X3 FOR PATIENT BHAVANI
[2018-10-27 13:24] VITALS: BP 124/54
--- NOTE | 2018-10-27 14:02 | NUR ---
Nutrition Follow Up: Chart reviewed. Diet: ADA Full Liquid PO Intake: 100% meal avg BM: 10/24/18 Labs reviewed Meds noted including Reglan, Flagyl Rec continue advancing JEREL as medically feasible. RD following.
--- NOTE | 2018-10-27 14:25 | MORECARE ---
CASE MANAGEMENT DISCHARGE SUMMARY PATIENT: ANGIE LOPEZ MANNY UNIT: [id number] ADM DATE: 10/25/18 AGE: 62 : 59 SEX: F ROOM/BED: D.2231 AUTHOR: DAMARIS PEREZ PHYSICIAN: REFERRING PHYSICIAN: CARMEN SHIN MD DATE OF SERVICE: 10/27/18 Discharge Plan Patient Name: [facility]GIE LOPEZ [facility] [facility] 1955 Planned Disposition: Home with Home Health Anticipated Discharge Date: Discharge Date: Expected LOS: Initial Reviewer: [email or web address] Initial Review Date: 10/26/2018 Generated: 10/27/18 3:25 pm DCP- Discharge Planning Updated by [email or web address]: Wanda Wilde on 10/26/18 3:[address] CM went to room to meet with patient, she is asleep and I did not awaken her. I will meet with her in the morning. CM will continue to follow and assist with discharge planning/needs. Last DP export: 10/26/18 3:23 p Patient Name: ANGIE LOPEZ Page [phone] at 1425 All edits/amendments must be made on the electronic document DICTATION DATE: 10/27/18 142 GLUE SPREADING MACHINE OPERATOR: BORA 10/27/18 142 RPT#: [id number] DC DATE: STATUS: ADM IN [facility] [address] [place] [address] END OF REPORT
--- NOTE | 2018-10-27 14:36 | MORECARE ---
CASE MANAGEMENT DISCHARGE SUMMARY PATIENT: ANGIE LOPEZ MANNY UNIT: [id number] ADM DATE: 10/25/18 AGE: 62 : 59 SEX: F ROOM/BED: D.2231 AUTHOR: ANA,DOC PHYSICIAN: REFERRING PHYSICIAN: CARMEN SHIN MD DATE OF SERVICE: 10/27/18 Discharge Plan Patient Name: ANGIE LOPEZ Facility: [facility]:[place] : 1955 Planned Disposition: Home with Home Health Anticipated Discharge Date: Discharge Date: Expected LOS: Initial Reviewer: [email or web address] Initial Review Date: 10/26/2018 Generated: 10/27/18 3:35 pm DCP- Discharge Planning Updated by [email or web address]: Wanda Wilde on 10/26/18 3:[address] CM went to room to meet with patient, she is asleep and I did not awaken her. I will meet with her in the morning. CM will continue to follow and assist with discharge planning/needs. DCPIA - Discharge Planning Initial Assessment Updated by [email or web address]: Wanda Wilde on 10/27/18 2:35 pm * Is the patient Alert and Oriented? Yes * How many steps to enter\exit or inside your home? 0/0 * PCP Dr. Kwasi Harmon * Pharmacy [facility] * Preadmission Environment Home Alone * ADLs Partial Dependent * Partial ADLs (Assistance needed) Medication Management * Equipment Glucometer Other Oxygen Walker Wheelchair * Other Equipment Portable oxygen Walking boot Electric WC * List name and contact numbers for known caregivers / representatives who currently or will assist patient after discharge: Esther Jeffery - sister - [phone] Alma Higgins - mother - [phone] * Verbal permission to speak to the caregivers and representatives has been obtained from the patient. Yes * Community resources currently utilized Home Health * Please name any agencies selected above. [facility] Unsure of oxygen supplier * Additional services required to return to the preadmission environment? Yes * Can the patient safely return to the preadmission environment? Yes * Has this patient been hospitalized within the prior 30 days at any hospital? No Last DP export: 10/27/18 1:25 p Patient Name: JOHN, ANGIE Page 46949 at 1436 All edits/amendments must be made on the electronic document DICTATION DATE: 10/27/181434 TATTOO DESIGNER: BORA 10/27/181434 RPT#: [id number] DC DATE: STATUS: ADM IN [facility] [address] [place] [address] END OF REPORT
--- NOTE | 2018-10-27 14:47 | MORECARE ---
CASE MANAGEMENT DISCHARGE SUMMARY PATIENT: ANGIE LOPEZ MANNY UNIT: [id number] ADM DATE: 10/25/18 AGE: 62 : 59 SEX: F ROOM/BED: D.2231 AUTHOR: ANADOC PHYSICIAN: REFERRING PHYSICIAN: CARMEN SHIN MD DATE OF SERVICE: 10/27/18 Discharge Plan Patient Name: ANGIE LOPEZ Facility: [facility]:[place] : 1955 Planned Disposition: Home with Home Health Anticipated Discharge Date: Discharge Date: Expected LOS: Initial Reviewer: [email or web address] Initial Review Date: 10/26/2018 Generated: 10/27/18 3:47 pm Comments DCP- Discharge Planning Updated by [email or web address]: Wanda Wilde on 10/27/18 1:[address] Patient Name: ANGIE LOPEZ Admission Status: ER Accout number: [id number] Admission Date: 10-25-2018 : 1955 Admission Diagnosis: Attending: CARMEN SHIN Current LOS: 2 Anticipated DC Date: Planned Disposition: Home with Home Health Primary Insurance: [employer] CHOICE PPO M[employer] ADVANT Discharge Planning Comments: CM met with patient to discuss discharge planning/needs, she is alone in the room. States she lives with her dog. States her friend is watching her dog while she is in the hospital. States she does not walk much, uses her electric wheelchair most of the time. States she uses the bus for transportation. States her sister will probably take her home on discharge. She currently has [facility]. I discussed the availability of rehab, SNF, additional DME. She states she plans on returning home with the resumption of home health. CM will continue to follow and assist with discharge planning/needs. Water Rights Specialist: Wanda Wilde DCP- Discharge Planning Updated by [email or web address]: Wanda Wilde on 10/26/18 3:[address] CM went to room to meet with patient, she is asleep and I did not awaken her. I will meet with her in the morning. CM will continue to follow and assist with discharge planning/needs. DCPIA - Discharge Planning Initial Assessment Updated by [email or web address]: Wanda Wilde on 10/27/18 2:35 pm * Is the patient Alert and Oriented? Yes * How many steps to enter\exit or inside your home? 0/0 * PCP Dr. Kwasi Harmon * Pharm[facility] * Preadmission Environment Home Alone * ADLs Partial Dependent * Partial ADLs (Assistance needed) Medication Management * Equipment Glucometer Other Oxygen Walker Wheelchair * Other Equipment Portable oxygen Walking boot Electric WC * List name and contact numbers for known caregivers / representatives who currently or will assist patient after discharge: Esther Jeffery - sister - [phone] Alma Higgins - mother - [phone] * Verbal permission to speak to the caregivers and representatives has been obtained from the patient. Yes * Community resources currently utilized Home Health * Please name any agencies selected above. [facility] Unsure of oxygen supplier * Additional services required to return to the preadmission environment? Yes * Can the patient safely return to the preadmission environment? Yes * Has this patient been hospitalized within the prior 30 days at any hospital? No Last DP export: 10/27/18 1:36 p Patient Name: ANGIE LOPEZ Page 73703 at 1447 All edits/amendments must be made on the electronic document DICTATION DATE: 10/27/181446 COUNTER TACKER: BORA 10/27/181446 RPT#: [id number] DC DATE: STATUS: ADM IN [facility] [address] [place] [address] END OF REPORT
[2018-10-27 17:46] VITALS: BP 123/64
[2018-10-27 20:00] VITALS: BP 129/66
[2018-10-28] VITALS (7 sets, daily range): BP systolic 120–163; BP diastolic 59–82
--- NOTE | 2018-10-28 03:42 | NUR ---
PT IS VERY DROWSY, FSBS 73. ENOURAGED TO EAT A SNAP BEFORE GOING TO SLEEP. PT COMPLIED. WILL CONTINUE TO MONITOR.
--- NOTE | 2018-10-28 05:00 | NUR ---
FSBS 54. GAVE PT ORANGE JUICE AND A POPSICLE. WILL REASSESS.
--- NOTE | 2018-10-28 05:30 | NUR ---
FSBS 64. GAVE MIRZA CRACKERS AND PEANUTBUTTER. WILL CONTINUE TO MONITOR.
[2018-10-28 05:44] LABS: BASOPHILS 0.4 % (0-2); EOSINOPHILS 2.7 % (0-7); HEMATOCRIT 35.6 % (36.0-48.0); HEMOGLOBIN 11.8 g/dL (12-16); IMMATURE GRANULOCYTES 0.4 % (0-5); LYMPHOCYTES 36.9 % (15-50); MCH 28.2 pg (26.0-34.0); MCHC 33.1 g/dL (31.0-37.0); MEAN PLATELET VOLUME 10.7 fL (7.4-10.4); MONOCYTES 8.9 % (2-11); NEUTROPHILS 50.7 % (40-80); PLATELET COUNT 162 10x3/uL (130-400); RBC 4.19 10x6/uL (4.00-5.40); RDW 13.9 % (11.5-14.5)
[2018-10-28 05:53] LABS: ANION GAP 13.2 mmol/L (8-16); CALCIUM 7.1 mg/dL (8.5-10.1); CARBON DIOXIDE 21.6 mmol/L (21.0-32.0); CREATININE - SERUM 2.2 mg/dL (0.6-1.3); POTASSIUM - SERUM 3.8 mmol/L (3.5-5.1)
--- NOTE | 2018-10-28 07:32 | NUR ---
I CONCUR WITH ASSEMBLER CAMPER ASSESSMENT.
--- NOTE | 2018-10-28 07:45 | NUR ---
PATIENT IN BED WITH IV INTACT. NO COMPLAINTS OR SIGNS OF DISTRESS. CALL LIGHT WITHIN REACH.
--- NOTE | 2018-10-28 18:55 | NUR ---
PATIENT IN BED WITH NO COMPLAINTS OR SIGNS OF DISTRESS. TOLERATED FULL LIQUIDS TODAY WITH NO PROBLEMS. IV INTACT. CALL LIGHT WITHIN REACH.
--- NOTE | 2018-10-28 19:38 | NUR ---
RECEIVED REPORT, ASSUMED CARE, SLEEPING, BREATHING EVEN UNLABORED, CALL LIGHT IN REACH, BED LOWEST POSITION, AROUSED EASILY TO VOICE, DENIES NEEDS, WILL CONTINUE POC
--- NOTE | 2018-10-28 22:30 | NUR ---
ATTEMPTED TO REPLACE PT IV, THE LAC WAS LEAKING, UNABLE TO FIND A VEIN, WENT TO LAB TO GET VEIN FINDER, ATTEMPTED TO PLACE IV UNABLE, HERVE MARR ATTEMPTED TWICE UNABLE, PT WANTS TO WAIT TILL THE AM FOR IV ATTEMPTS
--- NOTE | 2018-10-29 02:12 | NUR ---
I have reviewed this patient and I concur with the Shift Assessment completed by the Licensed Practical Nurse today this shift. PT IS ASLEEP AT THIS TIME.
[2018-10-29 04:00] VITALS: BP 153/68
[2018-10-29 05:58] LABS: BASOPHILS 0.2 % (0-2); EOSINOPHILS 2.4 % (0-7); IMMATURE GRANULOCYTES 0.2 % (0-5); LYMPHOCYTES 40.9 % (15-50); MCH 28.3 pg (26.0-34.0); MCHC 33.5 g/dL (31.0-37.0); MCV 84.5 fL (80.0-100.0); MEAN PLATELET VOLUME 9.8 fL (7.4-10.4); MONOCYTES 5.3 % (2-11); RDW 12.6 % (11.5-14.5)
[2018-10-29 06:07] LABS: HEMATOCRIT 27.8 % (36.0-48.0); HEMOGLOBIN 9.3 g/dL (12-16); PLATELET COUNT 267 10x3/uL (130-400); RBC 3.29 10x6/uL (4.00-5.40); WBC 4.5 10x3/uL (4.8-10.8)
[2018-10-29 06:24] LABS: ANION GAP 13.9 mmol/L (8-16); CALCIUM 7.6 mg/dL (8.5-10.1); CARBON DIOXIDE 22.4 mmol/L (21.0-32.0); CREATININE - SERUM 2.1 mg/dL (0.6-1.3); POTASSIUM - SERUM 4.3 mmol/L (3.5-5.1)
[2018-10-29 08:44] VITALS: BP 168/85
[2018-10-29 12:32] VITALS: BP 176/89
[2018-10-29 17:14] VITALS: BP 171/90
--- NOTE | 2018-10-29 19:15 | NUR ---
RECEIVED CARE FROM DAY NURSE. LYING IN BED WITH EYES CLOSED. RESP EVEN AND UNLABORED. CALL LIGHT AT SIDE. NO MICHELA.
--- NOTE | 2018-10-29 19:22 | NUR ---
I have reviewed this patient and I concur with the Shift Assessment completed by the Licensed Practical Nurse today this shift.
[2018-10-29 19:41] VITALS: BP 165/81
[2018-10-30 00:02] VITALS: BP 117/86
--- NOTE | 2018-10-30 02:16 | NUR ---
IV SITED TO LEFT THUMB BY ER NURSE.
[2018-10-30 04:00] VITALS: BP 155/81
[2018-10-30 07:33] LABS: ANION GAP 14.1 mmol/L (8-16); CALCIUM 7.9 mg/dL (8.5-10.1); CARBON DIOXIDE 23.1 mmol/L (21.0-32.0); CREATININE - SERUM 1.9 mg/dL (0.6-1.3); POTASSIUM - SERUM 4.2 mmol/L (3.5-5.1)
--- NOTE | 2018-10-30 08:10 | NUR ---
PT SITTING UP IN BED. REPORTS UNDERSTANDING OF NPO STATUS PENDING TEST. NO ACUTE DISTRESS. DENIES PAIN AT THIS TIME. O2 @ 2L NC IN PLACE. IV TO LEFT THUMB WITH NS @ 10ML/HR INFUSING VIA PUMP. SITE WITHOUT REDNESS OR EDEMA. DENIES NEEDS AT THIS TIME. CL WITHIN REACH. ENCOURAGED TO CALL WITH NEEDS. CONTINUE POC
[2018-10-30 08:26] LABS: BASOPHILS 1.7 % (0-2); EOSINOPHILS 1.9 % (0-7); HEMATOCRIT 26.6 % (36.0-48.0); HEMOGLOBIN 9.2 g/dL (12-16); IMMATURE GRANULOCYTES 4.8 % (0-5); LYMPHOCYTES 36.1 % (15-50); MCH 28.8 pg (26.0-34.0); MCHC 34.6 g/dL (31.0-37.0); MCV 83.1 fL (80.0-100.0); MEAN PLATELET VOLUME 10.4 fL (7.4-10.4); MONOCYTES 6.6 % (2-11); NEUTROPHILS 48.9 % (40-80); PLATELET COUNT 278 10x3/uL (130-400); RDW 12.6 % (11.5-14.5); WBC 5.9 10x3/uL (4.8-10.8)
[2018-10-30 08:44] VITALS: BP 158/69
[2018-10-30 13:21] VITALS: BP 181/79
[2018-10-30 17:30] VITALS: BP 187/82
--- NOTE | 2018-10-30 19:15 | NUR ---
RECEIVED CARE FROM DAY NURSE. LYING IN BED WITH EYES CLOSED. RESP EVEN AND UNLABORED. CALL LIGHT AT SIDE. IV INFUSING TO LEFT THUMB.
[2018-10-30 20:00] VITALS: BP 182/87
[2018-10-31] VITALS: BP 165/74
[2018-10-31 04:00] VITALS: BP 155/77
[2018-10-31 06:45] LABS: ANION GAP 10.6 mmol/L (8-16); CALCIUM 8.1 mg/dL (8.5-10.1); CARBON DIOXIDE 26.1 mmol/L (21.0-32.0); CREATININE - SERUM 2.2 mg/dL (0.6-1.3); POTASSIUM - SERUM 3.7 mmol/L (3.5-5.1)
[2018-10-31 07:08] LABS: BASOPHILS 0 % (0-2); HEMOGLOBIN 8.9 g/dL (12-16); IMMATURE GRANULOCYTES 0.4 % (0-5); LYMPHOCYTES 32.3 % (15-50); MCH 28.8 pg (26.0-34.0); MCHC 34.2 g/dL (31.0-37.0); MCV 84.1 fL (80.0-100.0); MEAN PLATELET VOLUME 9.8 fL (7.4-10.4); MONOCYTES 6.7 % (2-11); NEUTROPHILS 58.6 % (40-80); PLATELET COUNT 288 10x3/uL (130-400); RBC 3.09 10x6/uL (4.00-5.40); RDW 12.5 % (11.5-14.5); WBC 5.4 10x3/uL (4.8-10.8)
[2018-10-31 09:20] VITALS: BP 147/62
--- NOTE | 2018-10-31 11:30 | MORECARE ---
CASE MANAGEMENT DISCHARGE SUMMARY PATIENT: ANGIE LOPEZ MANNY UNIT: [id number] ADM DATE: 10/25/18 AGE: 62 : 59 SEX: F ROOM/BED: D.2231 AUTHOR: ANA,DOC PHYSICIAN: REFERRING PHYSICIAN: CARMEN SHIN MD DATE OF SERVICE: 10/31/18 Discharge Plan Patient Name: ANGIE LOPEZ Facility: [facility]:[place] : 1955 Planned Disposition: Home with Home Health Anticipated Discharge Date: Discharge Date: Expected LOS: Initial Reviewer: [email or web address] Initial Review Date: 10/26/2018 Generated: 10/31/18 12:29 pm Comments DCP- Discharge Planning Updated by [email or web address]: Wanda Wilde on 10/31/18 10:[address] Spoke with patient again regarding discharge planning, states she would like a referral to [place] if her insurance will cover it. I spoke with Raquel and [facility] and referral faxed. CM will continue to follow and assist with discharge planning/needs. DCP- Discharge Planning Updated by [email or web address]: Wanda Wilde on 10/27/18 1:[address] Patient Name: ANGIE LOPEZ Admission Status: ER Accout number: [id number] Admission Date: 10-25-2018 : 1955 Admission Diagnosis: Attending: CARMEN SHIN Current LOS: 2 Anticipated DC Date: Planned Disposition: Home with Home Health Primary Insurance: HUMANA CHOICE PPO [facility] Discharge Planning Comments: CM met with patient to discuss discharge planning/needs, she is alone in the room. States she lives with her dog. States her friend is watching her dog while she is in the hospital. States she does not walk much, uses her electric wheelchair most of the time. States she uses the bus for transportation. States her sister will probably take her home on discharge. She currently has [facility]. I discussed the availability of rehab, SNF, additional DME. She states she plans on returning home with the resumption of home health. CM will continue to follow and assist with discharge planning/needs. Wealth Management Consultant: Wanda Wilde DCP- Discharge Planning Updated by [email or web address]: Wanda Wilde on 10/26/18 3:[address] CM went to room to meet with patient, she is asleep and I did not awaken her. I will meet with her in the morning. CM will continue to follow and assist with discharge planning/needs. DCPIA - Discharge Planning Initial Assessment Updated by [email or web address]: Wanda Wilde on 10/27/18 2:35 pm * Is the patient Alert and Oriented? Yes * How many steps to enter\exit or inside your home? 0/0 * PCP Dr. Kwasi Harmon * [facility] * Preadmission Environment Home Alone * ADLs Partial Dependent * Partial ADLs (Assistance needed) Medication Management * Equipment Glucometer Other Oxygen Walker Wheelchair * Other Equipment Portable oxygen Walking boot Electric WC * List name and contact numbers for known caregivers / representatives who currently or will assist patient after discharge: Esther Jeffery - sister - [phone] Alma Higgins - mother - [phone] * Verbal permission to speak to the caregivers and representatives has been obtained from the patient. Yes * Community resources currently utilized Home Health * Please name any agencies selected above. [facility] Unsure of oxygen supplier * Additional services required to return to the preadmission environment? Yes * Can the patient safely return to the preadmission environment? Yes * Has this patient been hospitalized within the prior 30 days at any hospital? No External Providers External Provider: [facility] Next Contact Date: Service Request Date: Service Type: Resolution: Reviewer: Comments: Coverage Notice Reviewer: [id number] - Wanda Wilde Notice Issued Date-Time: 10/31/2018 11:28 Notice Type: Patient Choice Letter Notice Delivered To: Patient Relationship to Patient: Self Transformation Analyst Name: Delivery Method: HAND - Hand Delivered Gail Days: Prior Verbal Notification: Recipient Understood Notice: Yes Recipient Signature: Yes Med Rec Note Co-signed by Attending: Coverage Notice Comment: VANESSA FOR [facility] SIGNED Last DP export: 10/27/18 1:47 p Patient Name: ANGIE LOPEZ Page 29685 at 1130 All edits/amendments must be made on the electronic document DICTATION DATE: 10/31/18 1129 NAVAL AIRCREWMAN AVIONICS: BORA 10/31/18 1129 RPT#: [id number] DC DATE: STATUS: ADM IN [facility] [address] [facility] [place] [address] END OF REPORT
--- NOTE | 2018-10-31 12:37 | MORECARE ---
CASE MANAGEMENT DISCHARGE SUMMARY PATIENT: ANGIE LOPEZ MANNY UNIT: [id number] ADM DATE: 10/25/18 AGE: 62 : 59 SEX: F ROOM/BED: D.2231 AUTHOR: ANA,DOC PHYSICIAN: REFERRING PHYSICIAN: CARMEN SHIN MD DATE OF SERVICE: 10/31/18 Discharge Plan Patient Name: ANGIE LOPEZ Facility: [facility]:[place] : 1955 Planned Disposition: Home with Home Health Anticipated Discharge Date: Discharge Date: Expected LOS: Initial Reviewer: [email or web address] Initial Review Date: 10/26/2018 Generated: 10/31/18 1:37 pm Comments DCP- Discharge Planning Updated by [id number]: Wanda Andry on 10/31/18 11:[address] Raquel with [facility] called back and states patient would have to pay 170.50 cents a day because she is till in her co-insurance days. I spoke with the patient and she states she will go home with home health. CM will continue to follow and assist with discharge planning/needs. DCP- Discharge Planning Updated by [email or web address]: Wanda Andry on 10/31/18 10:[address] Spoke with patient again regarding discharge planning, states she would like a referral to [facility] if her insurance will cover it. I spoke with Raquel and [facility] and referral faxed. CM will continue to follow and assist with discharge planning/needs. DCP- Discharge Planning Updated by [id number]: Wanda Chavezlauren on 10/27/18 1:[address] Patient Name: ANGIE LOPEZ Admission Status: ER Accout number: [id number] Admission Date: 10-25-2018 : 1955 Admission Diagnosis: Attending: CARMEN SHIN Current LOS: 2 Anticipated DC Date: Planned Disposition: Home with Home Health Primary Insurance: [employer] CHOICE PPO M[employer] Discharge Planning Comments: CM met with patient to discuss discharge planning/needs, she is alone in the room. States she lives with her dog. States her friend is watching her dog while she is in the hospital. States she does not walk much, uses her electric wheelchair most of the time. States she uses the bus for transportation. States her sister will probably take her home on discharge. She currently has [facility]. I discussed the availability of rehab, SNF, additional DME. She states she plans on returning home with the resumption of home health. CM will continue to follow and assist with discharge planning/needs. Film Archivist: Wanda Wilde DCP- Discharge Planning Updated by [id number]: Wanda Andry on 10/26/18 3:[address] CM went to room to meet with patient, she is asleep and I did not awaken her. I will meet with her in the morning. CM will continue to follow and assist with discharge planning/needs. DCPIA - Discharge Planning Initial Assessment Updated by [email or web address]: Wanda Andry on 10/27/18 2:35 pm * Is the patient Alert and Oriented? Yes * How many steps to enter\exit or inside your home? 0/0 * PCP Dr. Kwasi Harmon * [facility] * Preadmission Environment Home Alone * ADLs Partial Dependent * Partial ADLs (Assistance needed) Medication Management * Equipment Glucometer Other Oxygen Walker Wheelchair * Other Equipment Portable oxygen Walking boot Electric WC * List name and contact numbers for known caregivers / representatives who currently or will assist patient after discharge: Esther Jeffery - sister - [phone] Alma Higgins - mother - [phone] * Verbal permission to speak to the caregivers and representatives has been obtained from the patient. Yes * Community resources currently utilized Home Health * Please name any agencies selected above. [facility] Unsure of oxygen supplier * Additional services required to return to the preadmission environment? Yes * Can the patient safely return to the preadmission environment? Yes * Has this patient been hospitalized within the prior 30 days at any hospital? No Coverage Notice Reviewer: [id number] - Wanda Andry Notice Issued Date-Time: 10/31/2018 11:28 Notice Type: Patient Choice Letter Notice Delivered To: Patient Relationship to Patient: Self Ciaio Counter Molder Name: Delivery Method: HAND - Hand Delivered Gail Days: Prior Verbal Notification: Recipient Understood Notice: Yes Recipient Signature: Yes Med Rec Note Co-signed by Attending: Coverage Notice Comment: [facility] SIGNED Last DP export: 10/31/18 10:30 am Patient Name: JOHN, ANGIE Page 52529 at 1237 All edits/amendments must be made on the electronic document DICTATION DATE: 10/31/18 1236 APPRENTICE PAINTER HAND: BORA 10/31/18 1236 RPT#: [id number] DC DATE: STATUS: ADM IN [facility] [address] [place] [address] END OF REPORT
--- NOTE | 2018-10-31 12:52 | MORECARE ---
CASE MANAGEMENT DISCHARGE SUMMARY PATIENT: ANGIE LOPEZ MANNY UNIT: [id number] ADM DATE: 10/25/18 AGE: 62 : 59 SEX: F ROOM/BED: D.2231 AUTHOR: ANA,DOC PHYSICIAN: REFERRING PHYSICIAN: CARMEN SIHN MD DATE OF SERVICE: 10/31/18 Discharge Plan Patient Name: ANGIE LOPEZ Facility: [facility]:[place] : 1955 Planned Disposition: Home with Home Health Anticipated Discharge Date: Discharge Date: Expected LOS: Initial Reviewer: [email or web address] Initial Review Date: 10/26/2018 Generated: 10/31/18 1:52 pm Comments DCP- Discharge Planning Updated by [email or web address]: Wanda Wilde on 10/31/18 11:[address] Raquel with [facility] called back and states patient does have 20 days for skilled therapy with no copay. I spoke with patient and she would like skilled therapy at [place]. Raquel informed. CM will continue to follow and assist with discharge planning/needs. DCP- Discharge Planning Updated by [id number]: Wanda Wilde on 10/31/18 11:[address] Raquel with [facility] called back and states patient would have to pay 170.50 cents a day because she is till in her co-insurance days. I spoke with the patient and she states she will go home with home health. CM will continue to follow and assist with discharge planning/needs. DCP- Discharge Planning Updated by [id number]: Wanda Wilde on 10/31/18 10:[address] Spoke with patient again regarding discharge planning, states she would like a referral to [place] if her insurance will cover it. I spoke with Raquel and [facility] and referral faxed. CM will continue to follow and assist with discharge planning/needs. DCP- Discharge Planning Updated by [email or web address]: Wanda Wilde on 10/27/18 1:[address] Patient Name: ANGIE LOPEZ Admission Status: ER Accout number: [id number] Admission Date: 10-25-2018 : 1955 Admission Diagnosis: Attending: CARMEN SHIN Current LOS: 2 Anticipated DC Date: Planned Disposition: Home with Home Health Primary Insurance: HU[employer]NA CHOICE PPO M[employer] Discharge Planning Comments: CM met with patient to discuss discharge planning/needs, she is alone in the room. States she lives with her dog. States her friend is watching her dog while she is in the hospital. States she does not walk much, uses her electric wheelchair most of the time. States she uses the bus for transportation. States her sister will probably take her home on discharge. She currently has [facility]. I discussed the availability of rehab, SNF, additional DME. She states she plans on returning home with the resumption of home health. CM will continue to follow and assist with discharge planning/needs. Mechanical Service Technician: Wanda Wilde DCP- Discharge Planning Updated by [email or web address]: Wanda Wilde on 10/26/18 3:[address] CM went to room to meet with patient, she is asleep and I did not awaken her. I will meet with her in the morning. CM will continue to follow and assist with discharge planning/needs. DCPIA - Discharge Planning Initial Assessment Updated by [email or web address]: Wanda Wilde on 10/27/18 2:35 pm * Is the patient Alert and Oriented? Yes * How many steps to enter\exit or inside your home? 0/0 * PCP Dr. Kwasi Harmon * Pharmacy [facility] * Preadmission Environment Home Alone * ADLs Partial Dependent * Partial ADLs (Assistance needed) Medication Management * Equipment Glucometer Other Oxygen Walker Wheelchair * Other Equipment Portable oxygen Walking boot Electric WC * List name and contact numbers for known caregivers / representatives who currently or will assist patient after discharge: Esther Jeffery - sister - [phone] Alma Higgins - mother - [phone] * Verbal permission to speak to the caregivers and representatives has been obtained from the patient. Yes * Community resources currently utilized Home Health * Please name any agencies selected above. [facility] Unsure of oxygen supplier * Additional services required to return to the preadmission environment? Yes * Can the patient safely return to the preadmission environment? Yes * Has this patient been hospitalized within the prior 30 days at any hospital? No Coverage Notice Reviewer: [id number] - Wanda Wilde Notice Issued Date-Time: 10/31/2018 11:28 Notice Type: Patient Choice Letter Notice Delivered To: Patient Relationship to Patient: Self Obiee Lead Developer Name: Delivery Method: HAND - Hand Delivered Gail Days: Prior Verbal Notification: Recipient Understood Notice: Yes Recipient Signature: Yes Med Rec Note Co-signed by Attending: Coverage Notice Comment: [facility] SIGNED Last DP export: 10/31/18 11:37 am Patient Name: ANGIE LOPEZ Page 15855 at 1252 All edits/amendments must be made on the electronic document DICTATION DATE: 10/31/18 1252 CRATE BUILDER: BORA 10/31/18 1252 RPT#: [id number] DC DATE: STATUS: ADM IN [facility] [address] [place] [address] END OF REPORT
[2018-10-31 17:10] VITALS: BP 136/67
--- NOTE | 2018-10-31 19:45 | NUR ---
LYING IN BED SLEEPING. AWAKENED FOR ASSESSMENT. ALERT AND ORIENTED X3, CONFUSED TO TIME. DROWSY. GEN WEAKNESS NOTED. RESP SHALLOW, NONLABORED. BBS CTA. O2 @ 2L/NC. ABD DISTENDED AND FIRM. BS ACTIVE X4 QUADS. 1+ EDEMA NOTED TO BLE. SCDS IN USE BILAT. SONG ALARM ON FOR PT SAFETY. BLIND IN RT EYE, LT EYE VISION IMPAIRED. NS @ 10 ML/HR INFUSING IN LT THUMB WITHOUT DIFF. NO DISTRESS. SR ELEVATED X2. CL IN REACH.
[2018-10-31 20:00] VITALS: BP 143/73
--- NOTE | 2018-10-31 22:30 | NUR ---
ASSISTED UP TO BSC. BM MIXED WITH URINE NOTED. GAIT VERY SLOW AND UNSTEADY. STAFF X2 ASSISTED WITH AMB.
[2018-11-01] VITALS: BP 148/76
--- NOTE | 2018-11-01 00:05 | NUR ---
INCONT OF SMALL AMOUNT OF YELLOW MUCOUS. NO BM NOTED. PERICARE PERFORMED. CL IN REACH.
[2018-11-01 04:00] VITALS: BP 138/76
--- NOTE | 2018-11-01 04:06 | NUR ---
HAS SLEPT WELL THIS SHIFT. NO DISTRESS. EYES CLOSED. RESP EVEN AND NONLABORED. CL IN REACH. SONG ALARM IN USE
--- NOTE | 2018-11-01 08:00 | NUR ---
MORNING ASSESSMENT COMPLETE. SEE ASSESSMENT FLOWSHEET FOR FURTHER DETAILS. PT LYING IN BED AAO X4 TO PERSON, PLACE, TIME, AND SITUATION. HELPED UP TO BSC. DENIES FURTHER NEEDS AT THIS TIME. CL IN REACH. SIDE RAILS UP X3 FOR PATIENT TONJAY. BED IN LOWEST POSTIION
[2018-11-01 09:12] VITALS: BP 154/85
[2018-11-01 09:50] LABS: BASOPHILS 0.2 % (0-2); EOSINOPHILS 1.5 % (0-7); HEMATOCRIT 25.5 % (36.0-48.0); HEMOGLOBIN 8.8 g/dL (12-16); IMMATURE GRANULOCYTES 0.3 % (0-5); LYMPHOCYTES 28.5 % (15-50); MCH 28.6 pg (26.0-34.0); MCHC 34.5 g/dL (31.0-37.0); MCV 82.8 fL (80.0-100.0); MEAN PLATELET VOLUME 9.3 fL (7.4-10.4); MONOCYTES 6.9 % (2-11); NEUTROPHILS 62.6 % (40-80); PLATELET COUNT 289 10x3/uL (130-400); RBC 3.08 10x6/uL (4.00-5.40); RDW 12.5 % (11.5-14.5); WBC 6.1 10x3/uL (4.8-10.8)
[2018-11-01 10:06] LABS: CARBON DIOXIDE 25.6 mmol/L (21.0-32.0); CREATININE - SERUM 2.3 mg/dL (0.6-1.3); POTASSIUM - SERUM 3.6 mmol/L (3.5-5.1)
[2018-11-01] MEDS ORDERED: FLORAJEN3 CAPS460 MG PO (13:24)
[2018-11-01] MEDS ORDERED: MIRALAX17 GM PO (13:24)
[2018-11-01] MEDS ORDERED: CARAFATE1 G PO (13:25)
[2018-11-01] MEDS ORDERED: CIPRO500 MG PO (13:28)
--- NOTE | 2018-11-01 13:54 | MORECARE ---
CASE MANAGEMENT DISCHARGE SUMMARY PATIENT: ANGIE LOPEZ MANNY UNIT: [id number] ADM DATE: 10/25/18 AGE: 62 : 59 SEX: F ROOM/BED: D.2231 AUTHOR: ANA,DOC PHYSICIAN: REFERRING PHYSICIAN: CARMEN SHIN MD DATE OF SERVICE: 11/01/18 Discharge Plan Patient Name: ANGIE LOPEZ Facility: [facility]:[place] : 1955 Planned Disposition: Home with Home Health Anticipated Discharge Date: Discharge Date: Expected LOS: Initial Reviewer: [id number] Initial Review Date: 10/26/2018 Generated: 11/01/18 2:54 pm Comments DCP- Discharge Planning Updated by [email or web address]: Wanda Wilde on 11/01/18 12:[address] She has been accepted to [facility] for skilled therapy. Raquel states picking tech in one hour. Informed Raquel she has oxygen at [address]. I also informed Raquel she would need to f/u on urine cx obtained today. Georgia (primary nurse) informed of 1 hour picking tech and who to call report to. Also informed she need urine cx collected prior to discharge. Patient refuses for me to call family and inform that she is being discharged. Patient states "no one needs to know." Patient is going to a skilled (Medicare) bed and clinical faxed. DCP- Discharge Planning Updated by [id number]: Wanda Wilde on 10/31/18 11:[address] Raquel with [facility] called back and states patient does have 20 days for skilled therapy with no copay. I spoke with patient and she would like skilled therapy at [facility]. Raquel informed. CM will continue to follow and assist with discharge planning/needs. DCP- Discharge Planning Updated by [id number]: Wanda Wilde on 10/31/18 11:[address] Raquel with [facility] called back and states patient would have to pay 170.50 cents a day because she is till in her co-insurance days. I spoke with the patient and she states she will go home with home health. CM will continue to follow and assist with discharge planning/needs. DCP- Discharge Planning Updated by [email or web address]: Wanda Wilde on 10/31/18 10:[address] Spoke with patient again regarding discharge planning, states she would like a referral to [facility] if her insurance will cover it. I spoke with [facility] and [facility] and referral faxed. CM will continue to follow and assist with discharge planning/needs. DCP- Discharge Planning Updated by [id number]: Wanda Wilde on 10/27/18 1:[address] Patient Name: ANGIE LOPEZ Admission Status: ER Accout number: [id number] Admission Date: 10-25-2018 : 1955 Admission Diagnosis: Attending: CARMEN SHIN Current LOS: 2 Anticipated DC Date: Planned Disposition: Home with Home Health Primary Insurance: HU[employer]NA CHOICE PPO [facility] Discharge Planning Comments: CM met with patient to discuss discharge planning/needs, she is alone in the room. States she lives with her dog. States her friend is watching her dog while she is in the hospital. States she does not walk much, uses her electric wheelchair most of the time. States she uses the bus for transportation. States her sister will probably take her home on discharge. She currently has [facility]. I discussed the availability of rehab, SNF, additional DME. She states she plans on returning home with the resumption of home health. CM will continue to follow and assist with discharge planning/needs. Vocational Teacher: Wanda Wilde DCP- Discharge Planning Updated by [id number]: Wanda Wilde on 10/26/18 3:[address] CM went to room to meet with patient, she is asleep and I did not awaken her. I will meet with her in the morning. CM will continue to follow and assist with discharge planning/needs. DCPIA - Discharge Planning Initial Assessment Updated by [id number]: Wanda Wilde on 10/27/18 2:35 pm * Is the patient Alert and Oriented? Yes * How many steps to enter\\exit or inside your home? 0/0 * PCP Dr. Kwasi Harmon * Pharmacy [facility] * Preadmission Environment Home Alone * ADLs Partial Dependent * Partial ADLs (Assistance needed) Medication Management * Equipment Glucometer Other Oxygen Walker Wheelchair * Other Equipment Portable oxygen Walking boot Electric WC * List name and contact numbers for known caregivers / representatives who currently or will assist patient after discharge: Esther Jeffery - sister - [phone] Alma Higgins - mother - [phone] * Verbal permission to speak to the caregivers and representatives has been obtained from the patient. Yes * Community resources currently utilized Home Health * Please name any agencies selected above. [facility] Unsure of oxygen supplier * Additional services required to return to the preadmission environment? Yes * Can the patient safely return to the preadmission environment? Yes * Has this patient been hospitalized within the prior 30 days at any hospital? No Coverage Notice Reviewer: CORRIE Wilde Notice Issued Date-Time: 10/31/2018 11:28 Notice Type: Patient Choice Letter Notice Delivered To: Patient Relationship to Patient: Self Business Taxes Specialist Name: Delivery Method: HAND - Hand Delivered Gail Days: Prior Verbal Notification: Recipient Understood Notice: Yes Recipient Signature: Yes Med Rec Note Co-signed by Attending: Coverage Notice Comment: [facility] SIGNED Reviewer: CORRIE Wilde Notice Issued Date-Time: 11/01/2018 13:43 Notice Type: IM Discharge Notice Notice Delivered To: Patient Relationship to Patient: Self Business Taxes Specialist Name: Delivery Method: HAND - Hand Delivered Gail Days: Prior Verbal Notification: Recipient Understood Notice: Yes Recipient Signature: Yes Med Rec Note Co-signed by Attending: Coverage Notice Comment: IMM explained, signed, given, copy placed in MR Last DP export: 10/31/18 11:52 am Patient Name: ANGIE LOPEZ Page [id number] at 1354 All edits/amendments must be made on the electronic document DICTATION DATE: 11/01/18 1351 CISCO CERTIFIED INTERNETWORK EXPERT: BORA 11/01/18 1354 RPT#: [id number] DC DATE: STATUS: ADM IN [facility] [address] [place] [address] END OF REPORT
[2018-11-01 14:08] VITALS: BP 158/76
--- NOTE | 2018-11-03 11:40 | MORECARE ---
CASE MANAGEMENT DISCHARGE SUMMARY PATIENT: ANGIE LOPEZ MANNY UNIT: [id number] ADM DATE: 10/25/18 AGE: 62 : 59 SEX: F ROOM/BED: D.2231 AUTHOR: ANA,DOC PHYSICIAN: REFERRING PHYSICIAN: CARMEN SHIN MD DATE OF SERVICE: 11/03/18 Discharge Plan Patient Name: ANGIE LOPEZ Facility: [facility]:[place] : 1955 Planned Disposition: Home with Home Health Anticipated Discharge Date: Discharge Date: 11/01/2018 Expected LOS: 0 Initial Reviewer: [email or web address] Initial Review Date: 10/26/2018 Generated: 11/03/18 12:39 pm Comments DCP- Discharge Planning Updated by [email or web address]: Wanda Wilde on 11/01/18 12:[address] She has been accepted to [facility] for skilled therapy. Raquel states corn picker in one hour. Informed Raquel she has oxygen at [address] [place]. I also informed Raquel she would need to f/u on urine cx obtained today. Georgia (primary nurse) informed of 1 hour corn picker and who to call report to. Also informed she need urine cx collected prior to discharge. Patient refuses for me to call family and inform that she is being discharged. Patient states "no one needs to know." Patient is going to a skilled (Medicare) bed and clinical faxed. DCP- Discharge Planning Updated by [id number]: Wanda Wilde on 10/31/18 11:[address] Raquel with [facility] called back and states patient does have 20 days for skilled therapy with no copay. I spoke with patient and she would like skilled therapy at [facility]. Raquel informed. CM will continue to follow and assist with discharge planning/needs. DCP- Discharge Planning Updated by [email or web address]: Wanda Wilde on 10/31/18 11:[address] Raquel with [facility] called back and states patient would have to pay 170.50 cents a day because she is till in her co-insurance days. I spoke with the patient and she states she will go home with home health. CM will continue to follow and assist with discharge planning/needs. DCP- Discharge Planning Updated by [id number]: Wanda Chavezlauren on 10/31/18 10:[address] Spoke with patient again regarding discharge planning, states she would like a referral to [facility] if her insurance will cover it. I spoke with [facility] and [facility] and referral faxed. CM will continue to follow and assist with discharge planning/needs. DCP- Discharge Planning Updated by [id number]: Wanda Wilde on 10/27/18 1:[address] Patient Name: ANGIE LOPEZ Admission Status: ER Accout number: [id number] Admission Date: 10-25-2018 : 1955 Admission Diagnosis: Attending: CARMEN SHIN Current LOS: 2 Anticipated DC Date: Planned Disposition: Home with Home Health Primary Insurance: HU[employer]NA CHOICE PPO [facility] Discharge Planning Comments: CM met with patient to discuss discharge planning/needs, she is alone in the room. States she lives with her dog. States her friend is watching her dog while she is in the hospital. States she does not walk much, uses her electric wheelchair most of the time. States she uses the bus for transportation. States her sister will probably take her home on discharge. She currently has [facility]. I discussed the availability of rehab, SNF, additional DME. She states she plans on returning home with the resumption of home health. CM will continue to follow and assist with discharge planning/needs. Workers Compensation Defense Attorney: Wanda Chavezlauren DCP- Discharge Planning Updated by [id number]: Wanda Andry on 10/26/18 3:[address] CM went to room to meet with patient, she is asleep and I did not awaken her. I will meet with her in the morning. CM will continue to follow and assist with discharge planning/needs. DCPIA - Discharge Planning Initial Assessment Updated by [email or web address]: Wanda Andry on 10/27/18 2:35 pm * Is the patient Alert and Oriented? Yes * How many steps to enter\\exit or inside your home? 0/0 * PCP Dr. Kwasi Harmon * Pharmacy [facility] * Preadmission Environment Home Alone * ADLs Partial Dependent * Partial ADLs (Assistance needed) Medication Management * Equipment Glucometer Other Oxygen Walker Wheelchair * Other Equipment Portable oxygen Walking boot Electric WC * List name and contact numbers for known caregivers / representatives who currently or will assist patient after discharge: Esther Wells - sister - [phone] Alma Higgins - mother - [phone] * Verbal permission to speak to the caregivers and representatives has been obtained from the patient. Yes * Community resources currently utilized Home Health * Please name any agencies selected above. [facility] Unsure of oxygen supplier * Additional services required to return to the preadmission environment? Yes * Can the patient safely return to the preadmission environment? Yes * Has this patient been hospitalized within the prior 30 days at any hospital? No Coverage Notice Reviewer: [id number] Wilde Notice Issued Date-Time: 10/31/2018 11:28 Notice Type: Patient Choice Letter Notice Delivered To: Patient Relationship to Patient: Self Meat Processing Center Manager Name: Delivery Method: HAND - Hand Delivered Gail Days: Prior Verbal Notification: Recipient Understood Notice: Yes Recipient Signature: Yes Med Rec Note Co-signed by Attending: Coverage Notice Comment: [facility] SIGNED Reviewer: [id number] Wilde Notice Issued Date-Time: 11/01/2018 13:43 Notice Type: IM Discharge Notice Notice Delivered To: Patient Relationship to Patient: Self [employer] Manager Name: Delivery Method: HAND - Hand Delivered Gail Days: Prior Verbal Notification: Recipient Understood Notice: Yes Recipient Signature: Yes Med Rec Note Co-signed by Attending: Coverage Notice Comment: IMM explained, signed, given, copy placed in MR Last DP export: 11/01/18 12:54 pm Patient Name: ANGIE LOPEZ Page 95059 at 1140 All edits/amendments must be made on the electronic document DICTATION DATE: 11/03/18 1139 INDUSTRIAL TRACTOR DRIVER: BORA 11/03/18 1139 RPT#: [id number] DC DATE:11/01/18 STATUS: DIS IN [facility] [address] [place] [address] END OF REPORT
== END 2018-11-01 15:45 | DRG 392 ==
LOC: D.ER 19:01 → D.MS 10-25 00:04 → D.ICU 10-25 00:04 → D.EDHOLD 10-25 00:04 → D.ICU 10-25 01:40 → D.MS 10-25 11:11
PROVIDERS: Family Medicine; Internal Medicine Gastroenterology; ADMIT Internal Medicine Nephrology; ATTEND Internal Medicine Nephrology
PROC: 0DB58ZX Excision of Esophagus, Via Natural or Artificial Opening Endoscopic, Diagnostic (ICD-10-PCS; principal; 2018-10-27 05:14)
DX: K52.9 Noninfective gastroenteritis and colitis, unspecified (principal); N17.9 Acute kidney failure, unspecified; K22.10 Ulcer of esophagus without bleeding; J96.11 Chronic respiratory failure with hypoxia; E87.0 Hyperosmolality and hypernatremia; N39.0 Urinary tract infection, site not specified; N28.9 Disorder of kidney and ureter, unspecified; E11.22 Type 2 diabetes mellitus with diabetic chronic kidney disease; I12.9 Hypertensive chronic kidney disease with stage 1 through stage 4 chronic kidney disease, or unspecified chronic kidney disease; N18.9 Chronic kidney disease, unspecified; N18.3 Chronic kidney disease, stage 3 (moderate); E78.5 Hyperlipidemia, unspecified; I25.10 Atherosclerotic heart disease of native coronary artery without angina pectoris; K59.8 Other specified functional intestinal disorders; K31.84 Gastroparesis

== ENCOUNTER 2019-05-09 09:08 | Inpatient (IN) | payer MEDICARE ==
[~2019-05-09] VITALS: Ht 157.5 cm; Wt 81.8 kg
[~2019-05-09 09:08] MED LIST changes: +CARAFATE1 G PO; +CIPRO500 MG PO; +FLORAJEN3 CAPS460 MG PO
[2019-05-09 10:19] LABS: BASOPHILS 0.2 % (0-2); EOSINOPHILS 0 % (0-7); HEMATOCRIT 28.3 % (36.0-48.0); HEMOGLOBIN 9.4 g/dL (12-16); IMMATURE GRANULOCYTES 0.3 % (0-5); LYMPHOCYTES 13.6 % (15-50); MCHC 33.2 g/dL (31.0-37.0); MCV 87.3 fL (80.0-100.0); MONOCYTES 2.3 % (2-11); NEUTROPHILS 83.6 % (40-80); PLATELET COUNT 322 10x3/uL (130-400); RBC 3.24 10x6/uL (4.00-5.40); RDW 12.9 % (11.5-14.5); WBC 6.5 10x3/uL (4.8-10.8)
[2019-05-09 10:21] LABS: APPEARANCE CLOUDY (CLEAR); COLOR STRAW (YELLOW); NITRITE NEGATIVE (NEGATIVE); PROTEIN 3+ mg/dL (NEGATIVE); SPECIFIC GRAVITY 1.015 (1.005-1.020)
[2019-05-09 10:22] LABS: BILIRUBIN NEGATIVE (NEGATIVE); GLUCOSE 500 mg/dL (NEGATIVE); KETONE NEGATIVE (NEGATIVE); RED CELLS - URINE 0-5 /hpf (0-5); UROBILINOGEN NORMAL (NORMAL)
[2019-05-09 10:23] LABS: BACTERIA MANY /hpf (NEGATIVE); EPITHELIAL CELLS 0-5 /hpf (0-5)
[2019-05-09 10:25] LABS: APTT 26.7 SECONDS (22.8-39.4); INR 1.07 (0.85-1.17); PROTIME 13.4 SECONDS (11.6-15.0)
[2019-05-09 10:38] LABS: ALBUMIN 2.7 g/dL (3.4-5.0); ALKALINE PHOSPHATASE 85 U/L (46-116); ALT (SGPT) 12 U/L (10-68); AMYLASE - SERUM 38 U/L (25-115); BILIRUBIN - TOTAL 0.35 mg/dL (0.2-1.3); CALC OSMOLALITY 312 mosm/kg (275-300); CALCIUM 8.4 mg/dL (8.5-10.1); CARBON DIOXIDE 25.3 mmol/L (21.0-32.0); CHLORIDE - SERUM 106 mmol/L (98-107); CKMB 0.9 U/L (0.0-3.6); CREATINE KINASE 162 UL (21-215); CREATININE - SERUM 4.5 mg/dL (0.6-1.3); LIPASE 128 U/L (73-393); POTASSIUM - SERUM 4.6 mmol/L (3.5-5.1); SODIUM 143 mmol/L (136-145); TROPONIN-I 0.059 ng/mL (0.000-0.060); UREA NITROGEN 38 mg/dL (7-18); eGFR NON AFRICAN AMERICAN 11 mL/min (90-120)
[2019-05-09 10:40] LABS: GLUCOSE 447 mg/dL (74-106)
[2019-05-09 10:56] LABS: KETONE - SERUM NEGATIVE (NEGATIVE)
[2019-05-09 12:49] LABS: CKMB 1.3 U/L (0.0-3.6); CREATINE KINASE 170 UL (21-215)
[2019-05-09 12:53] LABS: TROPONIN-I 0.082 ng/mL (0.000-0.060)
[2019-05-09 13:21] VITALS: BP 171/78; BMI 33.0
[2019-05-09 13:48] VITALS: BP 114/76
[2019-05-09 14:37] LABS: % SATURATION 26 % (15-55); IRON 55 ug/dl (35-150); TOTAL IRON BIND CAPACITY 210 ug/dl (260-445); UNSAT IRON BIND CAPACITY 155 ug/dl (150-375)
[2019-05-09] MEDS ORDERED: LOPRESSOR25 MG PO (14:58)
[2019-05-09 16:10] VITALS: BP 165/93
[2019-05-09 17:57] LABS: CKMB 1.4 U/L (0.0-3.6)
[2019-05-09 18:00] LABS: CREATINE KINASE 216 UL (21-215); TROPONIN-I 0.093 ng/mL (0.000-0.060)
[2019-05-09] MEDS ORDERED: LEVEMIR FL100 UNIT/1 SC (18:15)
[2019-05-09] MEDS ORDERED: LUMIGAN 0.01%2.5 ML LEFT EYE (18:18)
[2019-05-09] MEDS ORDERED: NOVOLOG100 UNIT/1 SC (18:20)
[2019-05-09] MEDS ORDERED: ZOFRAN4 MG PO (18:20)
[2019-05-09] MEDS ORDERED: VITAMIN D31000 UNIT PO (18:25)
[2019-05-09] MEDS ORDERED: CARAFATE1 G PO (18:25)
[2019-05-09 20:00] VITALS: BP 180/62
[2019-05-10] VITALS: BP 204/76
[2019-05-10 00:26] LABS: CKMB 1.2 U/L (0.0-3.6); CREATINE KINASE 239 UL (21-215)
[2019-05-10 00:28] LABS: TROPONIN-I 0.096 ng/mL (0.000-0.060)
[2019-05-10 04:00] VITALS: BP 172/87
[2019-05-10 06:13] LABS: BASOPHILS 0.1 % (0-2); EOSINOPHILS 0 % (0-7); HEMATOCRIT 29.8 % (36.0-48.0); HEMOGLOBIN 9.6 g/dL (12-16); IMMATURE GRANULOCYTES 0.1 % (0-5); LYMPHOCYTES 7.2 % (15-50); MCH 28.6 pg (26.0-34.0); MCHC 32.2 g/dL (31.0-37.0); MCV 88.7 fL (80.0-100.0); MEAN PLATELET VOLUME 9.6 fL (7.4-10.4); MONOCYTES 3.7 % (2-11); NEUTROPHILS 88.9 % (40-80); PLATELET COUNT 283 10x3/uL (130-400); RBC 3.36 10x6/uL (4.00-5.40); RDW 13.1 % (11.5-14.5)
[2019-05-10 07:07] LABS: ALBUMIN 2.5 g/dL (3.4-5.0); ANION GAP 16.8 mmol/L (8-16); BILIRUBIN - TOTAL 0.35 mg/dL (0.2-1.3); CALCIUM 7.8 mg/dL (8.5-10.1); CARBON DIOXIDE 24.8 mmol/L (21.0-32.0); CREATININE - SERUM 4.4 mg/dL (0.6-1.3); POTASSIUM - SERUM 4.6 mmol/L (3.5-5.1); PROTEIN - SERUM 6.8 g/dL (6.4-8.2)
[2019-05-10 08:39] VITALS: BP 155/78
[2019-05-10 13:16] VITALS: BP 159/74
[2019-05-10 13:38] VITALS: BMI 32.9
[2019-05-10 18:11] VITALS: BP 173/80
[2019-05-10 20:00] VITALS: BP 181/60
[2019-05-11] VITALS: BP 164/70
[2019-05-11 04:00] VITALS: BP 106/46
[2019-05-11 10:38] VITALS: BP 170/69
[2019-05-11 13:50] VITALS: BP 187/88
[2019-05-11 15:27] VITALS: Ht 157.5 cm; Wt 81.8 kg
[2019-05-11 16:36] LABS: CARBON DIOXIDE 24.1 mmol/L (21.0-32.0); CREATININE - SERUM 4.8 mg/dL (0.6-1.3); POTASSIUM - SERUM 5.1 mmol/L (3.5-5.1)
--- NOTE | 2019-05-11 16:58 | MORECARE ---
CASE MANAGEMENT DISCHARGE SUMMARY PATIENT: ANGIE LOPEZ MANNY UNIT: [id number] ADM DATE: 05/09/19 AGE: 63 : 59 SEX: F ROOM/BED: D.2103 AUTHOR: ANA,DOC PHYSICIAN: REFERRING PHYSICIAN: CARMEN SHIN MD DATE OF SERVICE: 05/11/19 Discharge Plan Patient Name: ANGIE LOPEZ Facility: [facility]:[place] : 1955 Planned Disposition: Home with Home Health Anticipated Discharge Date: Discharge Date: Expected LOS: Initial Reviewer: [id number] Initial Review Date: 05/11/2019 Generated: 05/11/19 5:58 pm DCPIA - Discharge Planning Initial Assessment Updated by [email or web address]: Chaitanya Anand on 05/11/19 4:57 pm * Is the patient Alert and Oriented? Yes * How many steps to enter\exit or inside your home? NONE * PCP DR. MASON KERR * Pharmacy [facility] * Preadmission Environment Home Alone * ADLs Independent * Equipment Glucometer Other Oxygen Power Chair or Electric Scooter Walker Wheelchair * Other Equipment HOME AND PORTABLE OXYGEN - UNKNOWN PROVIDER WALKING BOOT / BRACE * List name and contact numbers for known caregivers / representatives who currently or will assist patient after discharge: AMINA ARIAS, SISTER, JENNIFER DOZIER, MOTHER, * Verbal permission to speak to the caregivers and representatives has been obtained from the patient. Yes * Community resources currently utilized Home Health None * Please name any agencies selected above. [facility] * Additional services required to return to the preadmission environment? No * Can the patient safely return to the preadmission environment? Yes * Has this patient been hospitalized within the prior 30 days at any hospital? No Coverage Notice Reviewer: [id number] - Chaitanya Anand Notice Issued Date-Time: 05/11/2019 12:10 Notice Type: Patient Choice Letter Notice Delivered To: Patient Relationship to Patient: Pathology Laboratory Technologist Name: Delivery Method: HAND - Hand Delivered Gail Days: Prior Verbal Notification: Recipient Understood Notice: Yes Recipient Signature: Yes Med Rec Note Co-signed by Attending: Coverage Notice Comment: [facility] Patient Name: ANGIE LOPEZ Page 16868 at 1658 All edits/amendments must be made on the electronic document DICTATION DATE: 05/11/191657 ILLUMINATOR: BORA 05/11/191657 RPT#: [id number] DC DATE: STATUS: ADM IN [facility] [address] [place] [address] END OF REPORT
--- NOTE | 2019-05-11 17:07 | MORECARE ---
CASE MANAGEMENT DISCHARGE SUMMARY PATIENT: ANGIE LOPEZ MANNY UNIT: [id number] ADM DATE: 05/09/19 AGE: 63 : 59 SEX: F ROOM/BED: D.2101 AUTHOR: ANA,DOC PHYSICIAN: REFERRING PHYSICIAN: CARMEN SHIN MD DATE OF SERVICE: 05/11/19 Discharge Plan Patient Name: ANGIE LOPEZ Facility: [facility]:[place] : 1955 Planned Disposition: Home with Home Health Anticipated Discharge Date: Discharge Date: Expected LOS: Initial Reviewer: [id number] Initial Review Date: 05/11/2019 Generated: 05/11/19 6:07 pm Comments DCP- Discharge Planning Updated by [email or web address]: Chaitanya Anand on 05/11/19 4:[address] Patient Name: ANGIE LOPEZ Admission Status: ER Accout number: [id number] Admission Date: 05-09-2019 : 1955 Admission Diagnosis: Attending: CARMEN SHIN Current LOS: 2 Anticipated DC Date: Planned Disposition: Home with Home Health Primary Insurance: [employer]NA CHOICE PPO [facility] PLANNED EXTERNAL PROVIDER: [facility] Discharge Planning Comments: CM MET WITH PT IN ROOM TO DISCUSS DISCHARGE PLANNING AND NEEDS. PT REPORTS LIVING AT HOME INDEPENDENTLY IN DISABILITY ACCESSIBLE APARTMENT. PT HAS GLUCOMETER, WALKING BOOT / BRACE, HOME AND PORTABLE OXYGEN, WALKER AND POWER WHEELCHAIR. PT HAS UNKNOWN MEDICAL EQUIPMENT PROVIDER. PT HAS HOME HEALTH WITH [facility] AND [facility]. CM DISCUSSED AVAILABILITY OF HOME HEALTH, REHAB SERVICES AND MEDICAL EQUIPMENT. PT DENIES DISCHARGE NEEDS OTHER THAN HOME HEALTH RESUMPTION WITH [facility], REPORTS FAMILY WILL PICK HER UP FOR DISCHARGE HOME. CHOICE FOR [facility] COMPLETED. FOR DISCHARGE, NOTIFY [facility] FOR RESUMPTION OF HOME HEALTH AT [phone], FAX DISCHARGE INFORMATION TO [facility] AT [phone]. CM TO FOLLOW AND ASSIST NEEDED. Hatch Supervisor: Chaitanya Anand DCPIA - Discharge Planning Initial Assessment Updated by [email or web address]: Chaitanya Anand on 05/11/19 4:57 pm * Is the patient Alert and Oriented? Yes * How many steps to enter\exit or inside your home? NONE * PCP DR. MASON KERR * Pharmacy [facility] * Preadmission Environment Home Alone * ADLs Independent * Equipment Glucometer Other Oxygen Power Chair or Electric Scooter Walker Wheelchair * Other Equipment HOME AND PORTABLE OXYGEN - UNKNOWN PROVIDER WALKING BOOT / BRACE * List name and contact numbers for known caregivers / representatives who currently or will assist patient after discharge: AMINA ARIAS, SISTER, JENNIFER DOZIER, MOTHER, * Verbal permission to speak to the caregivers and representatives has been obtained from the patient. Yes * Community resources currently utilized Home Health None * Please name any agencies selected above. [facility] * Additional services required to return to the preadmission environment? No * Can the patient safely return to the preadmission environment? Yes * Has this patient been hospitalized within the prior 30 days at any hospital? No Coverage Notice Reviewer: [id number] Harvey Anand Notice Issued Date-Time: 05/11/2019 12:10 Notice Type: Patient Choice Letter Notice Delivered To: Patient Relationship to Patient: Analytical Manager Name: Delivery Method: HAND - Hand Delivered Gail Days: Prior Verbal Notification: Recipient Understood Notice: Yes Recipient Signature: Yes Med Rec Note Co-signed by Attending: Coverage Notice Comment: [facility] Last DP export: 05/11/19 3:58 Patient Name: ANGIE LOPEZ Page 33676 at 1707 All edits/amendments must be made on the electronic document DICTATION DATE: 05/11/191706 GYRO COMPASS TESTER: BORA 05/11/191706 RPT#: [id number] DC DATE: STATUS: ADM IN [facility] [address] [place] [address] END OF REPORT
[2019-05-11 17:40] VITALS: BP 202/82
[2019-05-11 20:00] VITALS: BP 177/67
[2019-05-12] VITALS: BP 167/71
[2019-05-12 04:30] VITALS: BP 158/64
[2019-05-12 05:35] LABS: BASOPHILS 0.1 % (0-2); EOSINOPHILS 2.8 % (0-7); HEMATOCRIT 28.1 % (36.0-48.0); HEMOGLOBIN 9.3 g/dL (12-16); IMMATURE GRANULOCYTES 0.8 % (0-5); LYMPHOCYTES 16.8 % (15-50); MCH 28.9 pg (26.0-34.0); MCHC 33.1 g/dL (31.0-37.0); MCV 87.3 fL (80.0-100.0); MEAN PLATELET VOLUME 10.2 fL (7.4-10.4); MONOCYTES 7.5 % (2-11); PLATELET COUNT 289 10x3/uL (130-400); RBC 3.22 10x6/uL (4.00-5.40); RDW 12.6 % (11.5-14.5)
[2019-05-12 05:42] LABS: WBC 7.5 10x3/uL (4.8-10.8)
[2019-05-12 05:50] LABS: ANION GAP 13.2 mmol/L (8-16); CALCIUM 7.2 mg/dL (8.5-10.1); CARBON DIOXIDE 23.7 mmol/L (21.0-32.0); CREATININE - SERUM 4.3 mg/dL (0.6-1.3)
[2019-05-12 05:59] LABS: POTASSIUM - SERUM 3.9 mmol/L (3.5-5.1)
[2019-05-12 06:15] LABS: % SATURATION 22 % (15-55); IRON 41 ug/dl (35-150); TOTAL IRON BIND CAPACITY 185 ug/dl (260-445); UNSAT IRON BIND CAPACITY 144 ug/dl (150-375)
[2019-05-12 06:55] LABS: ERYTHROCYTE SEDIMENTATION RATE 94 mm/hr (0-30)
[2019-05-12 09:39] VITALS: BP 182/81
[2019-05-12 10:11] LABS: HEPATITIS C ANTIBODY 0.1 S/CO RAT (0.0-0.9)
[2019-05-12 11:04] LABS: COMPLEMENT C4 41.1 mg/dL (17.4-52.2)
[2019-05-12 13:31] VITALS: BP 195/87
[2019-05-12 15:51] LABS: CREATININE - URINE 59.4 mg/dL (30-125); PRO/CRE RATIO URINE 9.8 mg/g; PROTEIN - URINE 582.7 mg/dL (0.0-11.9)
[2019-05-12 15:54] LABS: CREATININE - SERUM 4.3 mg/dL (0.6-1.3)
[2019-05-12 17:27] VITALS: BP 182/85
[2019-05-12 20:00] VITALS: BP 136/72; BP 168/62
[2019-05-13 04:00] VITALS: BP 186/76
[2019-05-13 04:33] LABS: BASOPHILS 0 % (0-2); EOSINOPHILS 2.8 % (0-7); HEMATOCRIT 26.8 % (36.0-48.0); HEMOGLOBIN 8.9 g/dL (12-16); IMMATURE GRANULOCYTES 0.3 % (0-5); LYMPHOCYTES 28.4 % (15-50); MCH 28.5 pg (26.0-34.0); MCHC 33.2 g/dL (31.0-37.0); MCV 85.9 fL (80.0-100.0); MEAN PLATELET VOLUME 9.6 fL (7.4-10.4); MONOCYTES 6.9 % (2-11); NEUTROPHILS 61.6 % (40-80); PLATELET COUNT 248 10x3/uL (130-400); RBC 3.12 10x6/uL (4.00-5.40); RDW 12.4 % (11.5-14.5); WBC 5.8 10x3/uL (4.8-10.8)
[2019-05-13 04:48] LABS: ANION GAP 13.7 mmol/L (8-16); CALCIUM 7.7 mg/dL (8.5-10.1); CARBON DIOXIDE 24.1 mmol/L (21.0-32.0); CREATININE - SERUM 4.1 mg/dL (0.6-1.3); POTASSIUM - SERUM 3.8 mmol/L (3.5-5.1)
[2019-05-13 09:22] VITALS: BP 174/84
[2019-05-13 14:35] VITALS: BP 154/72
[2019-05-13 18:19] VITALS: BP 185/82
[2019-05-13 20:00] VITALS: BP 163/73
[2019-05-14 00:30] VITALS: BP 189/83
[2019-05-14 04:00] VITALS: BP 140/62
[2019-05-14 05:03] LABS: BASOPHILS 0.2 % (0-2); HEMATOCRIT 25.8 % (36.0-48.0); HEMOGLOBIN 8.7 g/dL (12-16); IMMATURE GRANULOCYTES 0.4 % (0-5); LYMPHOCYTES 26.8 % (15-50); MCHC 33.7 g/dL (31.0-37.0); MEAN PLATELET VOLUME 10.1 fL (7.4-10.4); MONOCYTES 6.7 % (2-11); NEUTROPHILS 63.9 % (40-80); PLATELET COUNT 291 10x3/uL (130-400); RDW 12.7 % (11.5-14.5); WBC 5.1 10x3/uL (4.8-10.8)
[2019-05-14 05:08] LABS: ANION GAP 13.4 mmol/L (8-16); CALCIUM 7.8 mg/dL (8.5-10.1); CARBON DIOXIDE 23.2 mmol/L (21.0-32.0); CREATININE - SERUM 4.3 mg/dL (0.6-1.3); POTASSIUM - SERUM 3.6 mmol/L (3.5-5.1)
[2019-05-14 09:00] VITALS: BP 205/90
[2019-05-14] MEDS ORDERED: AMPICILLIN TRI500 MG PO (11:50)
[2019-05-14 13:55] VITALS: BP 111/59; BP 166/73
--- NOTE | 2019-05-14 15:15 | MORECARE ---
CASE MANAGEMENT DISCHARGE SUMMARY PATIENT: ANGIE LOPEZ MANNY UNIT: [id number] ADM DATE: 05/09/19 AGE: 63 : 59 SEX: F ROOM/BED: D.2102 AUTHOR: ANA,DOC PHYSICIAN: REFERRING PHYSICIAN: CARMEN SHIN MD DATE OF SERVICE: 05/14/19 Discharge Plan Patient Name: ANGIE LOPEZ Facility: [facility]:[place] : 1955 Planned Disposition: Home with Home Health Anticipated Discharge Date: Discharge Date: Expected LOS: Initial Reviewer: [id number] Initial Review Date: 05/11/2019 Generated: 05/14/19 4:15 pm Comments DCP- Discharge Planning Updated by [id number]: Jacki Cobb on 05/14/19 2:[address] Patient discharging home today with resumption of [facility]. CM left a voice mail for Klever the information broker nurse notifying him of the discharge. Cm faxed required information to [facility] as well. Jacki Cobb RN, [facility] DCP- Discharge Planning Updated by [email or web address]: Chaitanya Anand on 05/11/19 4:[address] Patient Name: ANGIE LOPEZ Admission Status: ER Accout number: [id number] Admission Date: 05-09-2019 : 1955 Admission Diagnosis: Attending: CARMEN SHIN Current LOS: 2 Anticipated DC Date: Planned Disposition: Home with Home Health Primary Insurance: HUMANA CHOICE PPO [facility] PLANNED EXTERNAL PROVIDER: [facility] Discharge Planning Comments: CM MET WITH PT IN ROOM TO DISCUSS DISCHARGE PLANNING AND NEEDS. PT REPORTS LIVING AT HOME INDEPENDENTLY IN DISABILITY ACCESSIBLE APARTMENT. PT HAS GLUCOMETER, WALKING BOOT / BRACE, HOME AND PORTABLE OXYGEN, WALKER AND POWER WHEELCHAIR. PT HAS UNKNOWN MEDICAL EQUIPMENT PROVIDER. PT HAS HOME HEALTH WITH [facility]. CM DISCUSSED AVAILABILITY OF HOME HEALTH, REHAB SERVICES AND MEDICAL EQUIPMENT. PT DENIES DISCHARGE NEEDS OTHER THAN HOME HEALTH RESUMPTION WITH [facility], REPORTS FAMILY WILL PICK HER UP FOR DISCHARGE HOME. CHOICE FOR [facility] COMPLETED. FOR DISCHARGE, NOTIFY [facility] FOR RESUMPTION OF HOME HEALTH AT [phone], FAX DISCHARGE INFORMATION TO [facility] AT [phone]. CM TO FOLLOW AND ASSIST NEEDED. Electronic Train Control Technician: Chaitanya Anand DCPIA - Discharge Planning Initial Assessment Updated by [email or web address]: Chaitanya Anand on 05/11/19 4:57 pm * Is the patient Alert and Oriented? Yes * How many steps to enter\exit or inside your home? NONE * PCP DR. MASON KERR * Pharmacy [facility] * Preadmission Environment Home Alone * ADLs Independent * Equipment Glucometer Other Oxygen Power Chair or Electric Scooter Walker Wheelchair * Other Equipment HOME AND PORTABLE OXYGEN - UNKNOWN PROVIDER WALKING BOOT / BRACE * List name and contact numbers for known caregivers / representatives who currently or will assist patient after discharge: AMINA ARIAS, SISTER, JENNIFER DOZIER, MOTHER, * Verbal permission to speak to the caregivers and representatives has been obtained from the patient. Yes * Community resources currently utilized Home Health None * Please name any agencies selected above. [facility] * Additional services required to return to the preadmission environment? No * Can the patient safely return to the preadmission environment? Yes * Has this patient been hospitalized within the prior 30 days at any hospital? No External Providers External Provider: [facility] Next Contact Date: Service Request Date: Service Type: Resolution: Reviewer: Comments: Coverage Notice Reviewer: [id number] - Chaitanya Anand Notice Issued Date-Time: 05/11/2019 12:10 Notice Type: Patient Choice Letter Notice Delivered To: Patient Relationship to Patient: Shipping Specialist Name: Delivery Method: HAND - Hand Delivered Gail Days: Prior Verbal Notification: Recipient Understood Notice: Yes Recipient Signature: Yes Med Rec Note Co-signed by Attending: Coverage Notice Comment: [facility] Last DP export: 05/11/19 4:07 Patient Name: ANGIE LOPEZ Page 06540 at 1519 All edits/amendments must be made on the electronic document DICTATION DATE: 05/14/191 TILE CLASSIFIER: BORA 05/14/191514 RPT#: [id number] DC DATE: STATUS: ADM IN [facility] [address] [place] [address] END OF REPORT
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
[2019-05-16 12:09] LABS: ANCA - ANTIMYELOPEROXIDASE <9.0 U/mL (0.0-9.0); ANCA - ANTIPROTEINASE 3 <3.5 U/mL (0.0-3.5); ANCA - ATYPICAL <1:20 titer (Neg:<1:20); ANCA - CYTOPLASMIC <1:20 titer (Neg:<1:20); ANCA - PERINUCLEAR <1:20 titer (Neg:<1:20)
== END 2019-05-14 17:45 | disposition home health service (06) | DRG 690 ==
LOC: D.ER 09:08 → D.M2 12:06
PROVIDERS: Family Medicine; Internal Medicine; ADMIT Internal Medicine Nephrology; ATTEND Internal Medicine Nephrology
DX: N39.0 Urinary tract infection, site not specified (principal); N17.9 Acute kidney failure, unspecified; J96.11 Chronic respiratory failure with hypoxia; I12.0 Hypertensive chronic kidney disease with stage 5 chronic kidney disease or end stage renal disease; N18.5 Chronic kidney disease, stage 5; E11.22 Type 2 diabetes mellitus with diabetic chronic kidney disease; E11.65 Type 2 diabetes mellitus with hyperglycemia; K20.9 Esophagitis, unspecified; K52.9 Noninfective gastroenteritis and colitis, unspecified; D50.9 Iron deficiency anemia, unspecified; E78.5 Hyperlipidemia, unspecified; J44.9 Chronic obstructive pulmonary disease, unspecified; E11.42 Type 2 diabetes mellitus with diabetic polyneuropathy; I25.10 Atherosclerotic heart disease of native coronary artery without angina pectoris; K21.9 Gastro-esophageal reflux disease without esophagitis; H54.8 Legal blindness, as defined in USA; E86.0 Dehydration; E11.649 Type 2 diabetes mellitus with hypoglycemia without coma; N13.9 Obstructive and reflux uropathy, unspecified; Z86.73 Personal history of transient ischemic attack (TIA), and cerebral infarction without residual deficits

== ENCOUNTER 2019-06-02 10:00 | Inpatient (IN) | payer MEDICARE ==
[~2019-06-02] VITALS: Ht 157.5 cm; Wt 96.5 kg
[~2019-06-02 10:00] MED LIST changes: +AMPICILLIN TRI500 MG PO; +LEVEMIR FL100 UNIT/1 SC; +LOPRESSOR25 MG PO; +LUMIGAN 0.01%2.5 ML LEFT EYE; +NOVOLOG100 UNIT/1 SC; +ZOFRAN4 MG PO
[2019-06-02 10:28] VITALS: BP 150/79
[2019-06-02 10:31] LABS: APPEARANCE CLEAR (CLEAR); BILIRUBIN NEGATIVE (NEGATIVE); COLOR STRAW (YELLOW); GLUCOSE 50 mg/dL (NEGATIVE); KETONE NEGATIVE (NEGATIVE); NITRITE NEGATIVE (NEGATIVE); PROTEIN 3+ mg/dL (NEGATIVE); SPECIFIC GRAVITY 1.015 (1.005-1.020); UROBILINOGEN NORMAL (NORMAL)
[2019-06-02 10:39] LABS: BACTERIA NONE SEEN /hpf (NEGATIVE); EPITHELIAL CELLS 0-5 /hpf (0-5); RED CELLS - URINE 0-5 /hpf (0-5); UDS - AMPHET NEGATIVE QUAL (NEGATIVE); UDS - BARB NEGATIVE QUAL (NEGATIVE); UDS - BENZO NEGATIVE QUAL (NEGATIVE); UDS - COCAINE NEGATIVE QUAL (NEGATIVE); UDS - OPIATE NEGATIVE QUAL (NEGATIVE); UDS - PCP NEGATIVE QUAL (NEGATIVE); UDS - THC NEGATIVE QUAL (NEGATIVE); WHITE CELLS - URINE NSEEN /hpf (NEGATIVE)
[2019-06-02 11:31] LABS: APTT 20.2 SECONDS (22.8-39.4); INR 0.98 (0.85-1.17); PROTIME 12.5 SECONDS (11.6-15.0)
[2019-06-02 11:43] LABS: BASOPHILS 0.2 % (0-2); EOSINOPHILS 0.3 % (0-7); HEMOGLOBIN 8.8 g/dL (12-16); IMMATURE GRANULOCYTES 0.3 % (0-5); LYMPHOCYTES 20.2 % (15-50); MCH 28.5 pg (26.0-34.0); MCHC 31.4 g/dL (31.0-37.0); MCV 90.6 fL (80.0-100.0); MEAN PLATELET VOLUME 9.4 fL (7.4-10.4); MONOCYTES 3.3 % (2-11); NEUTROPHILS 75.7 % (40-80); RBC 3.09 10x6/uL (4.00-5.40); RDW 13.3 % (11.5-14.5); WBC 6.4 10x3/uL (4.8-10.8)
[2019-06-02 11:46] LABS: PLATELET COUNT 364 10x3/uL (130-400)
[2019-06-02 11:54] LABS: CALC OSMOLALITY 308 mosm/kg (275-300); CALCIUM 8.3 mg/dL (8.5-10.1); CARBON DIOXIDE 25.4 mmol/L (21.0-32.0); CHLORIDE - SERUM 113 mmol/L (98-107); CREATININE - SERUM 4.5 mg/dL (0.6-1.3); GLUCOSE 111 mg/dL (74-106); POTASSIUM - SERUM 5.6 mmol/L (3.5-5.1); SODIUM 149 mmol/L (136-145); UREA NITROGEN 45 mg/dL (7-18); eGFR NON AFRICAN AMERICAN 11 mL/min (90-120)
[2019-06-02 12:11] LABS: ALBUMIN 2.5 g/dL (3.4-5.0); ALKALINE PHOSPHATASE 75 U/L (46-116); ALT (SGPT) 15 U/L (10-68); BILIRUBIN - TOTAL 0.18 mg/dL (0.2-1.3); CKMB 2.1 U/L (0.0-3.6); CREATINE KINASE 145 UL (21-215); MAGNESIUM - SERUM 2.1 mg/dL (1.8-2.4); PROTEIN - SERUM 6.4 g/dL (6.4-8.2); THYROID STIMULATING HORMONE 1.36 uIU/mL (0.36-3.74); TROPONIN-I 0.051 ng/mL (0.000-0.060)
[2019-06-02 12:15] VITALS: BP 142/80
--- NOTE | 2019-06-02 13:44 | NUR ---
REPORT TO YUSEF GARCIA. PT TO GO TO ROOM 2111. ROOM IS DIRTY RIGHT NOW. WILL LET US KNOW WHEN CLEAN.
--- NOTE | 2019-06-02 14:23 | NUR ---
transfered from er by stretcher. oreinted to room. call light in reach. will cont. plan of care.
--- NOTE | 2019-06-02 14:24 | NUR ---
STOP TIME FOR NS AND LEVAQUIN IS 1422, STILL INFUSING UPON TRANSFER TO FLOOR.
[2019-06-02] MEDS ORDERED: NEURONTIN 400400 MG PO (15:04)
[2019-06-02] MEDS ORDERED: POTASSIUM CHLO10 ME1 PO (15:05)
[2019-06-02 15:06] VITALS: BP 142/80; BMI 36.6
[2019-06-02 17:32] VITALS: BP 190/87
--- NOTE | 2019-06-02 19:10 | NUR ---
BEDSIDE REPORT RECEIVED FROM DAY SHIFT, PT CARE ASSUMED. INTRODUCED SELF AND WROTE NAME ON BOARD. PT LYING IN BED WITH EYES CLOSED, RR EVEN AND NONLABORED, NO S/S OF DISTRESS, AROUSES EASILY TO VOICE. AAOX4. DENIES ANY NEEDS AT THIS TIME. BED IN LOWEST POSITION, SR X2, CALL LIGHT WITHIN REACH. WILL CONTINUE TO MONITOR.
[2019-06-02 20:00] VITALS: BP 163/59
--- NOTE | 2019-06-02 22:43 | NUR ---
PT SITTING UP IN BED VISITING WITH FAMILY, A&A. FSBS 262, NIGHT TIME MEDS ADMINISTERED, PER ORDER. OFFERED PT SNACK, PT ACCEPTED. ASSISTED PT ONTO BED GARCIA. CALL LIGHT WITHIN REACH. WILL CONTINUE TO MONITOR.
[2019-06-03] VITALS (7 sets, daily range): BP systolic 126–190; BP diastolic 65–85
[2019-06-03 05:06] LABS: BILIRUBIN - TOTAL 0.17 mg/dL (0.2-1.3); CALCIUM 7.4 mg/dL (8.5-10.1); CREATININE - SERUM 4.3 mg/dL (0.6-1.3); PROTEIN - SERUM 5.3 g/dL (6.4-8.2)
[2019-06-03 05:07] LABS: ALBUMIN 1.8 g/dL (3.4-5.0); ANION GAP 11.6 mmol/L (8-16); POTASSIUM - SERUM 4.6 mmol/L (3.5-5.1)
[2019-06-03 05:08] LABS: BASOPHILS 0.2 % (0-2); EOSINOPHILS 1.6 % (0-7); IMMATURE GRANULOCYTES 0.4 % (0-5); LYMPHOCYTES 33.1 % (15-50); MCH 29.3 pg (26.0-34.0); MCHC 31.8 g/dL (31.0-37.0); MCV 92.1 fL (80.0-100.0); MEAN PLATELET VOLUME 9.4 fL (7.4-10.4); MONOCYTES 7.5 % (2-11); NEUTROPHILS 57.2 % (40-80); RDW 13.5 % (11.5-14.5); WBC 5.1 10x3/uL (4.8-10.8)
[2019-06-03 05:10] LABS: RBC 2.39 10x6/uL (4.00-5.40)
[2019-06-03 05:11] LABS: PLATELET COUNT 290 10x3/uL (130-400)
--- NOTE | 2019-06-03 05:41 | NUR ---
XU YEAGER, PAGED REGARDING CRITICAL HGB OF 7.0 RECEIVED FROM LAB.
--- NOTE | 2019-06-03 05:45 | NUR ---
RECEIVED TELEPHONE ORDER FROM XU YEAGER, TO REPEAT H&H LAB.
[2019-06-03 06:32] LABS: HEMATOCRIT 22.5 % (36.0-48.0)
--- NOTE | 2019-06-03 06:41 | NUR ---
RECEIVED CRITICAL HGB OF 7.0 FROM LAB. TELEPHONE ORDER RECEIVED FROM XU YEAGER, TO TYPE & CROSS, THEN TO INFUSE 2 UNITS PRBC.
--- NOTE | 2019-06-03 07:49 | NUR ---
PT AWAKE AND ORIENTED, NO COPMLAINTS OR CONCERNS VOICED. APPEARS SLEEPY THIS MORNING. CL IN REACH, SRX2.
--- NOTE | 2019-06-03 10:08 | NUR ---
UPON TRYING TO GIVE PT HER MEDS, FOUND HER TO BE DIAPHRETIC AND MINIMALLY RESPONSIVE, CONFUSED. PT BLOOD SUGAR WAS 54. TREATED, PT COMING AROUND. WILL RE EVAULATE.
--- NOTE | 2019-06-03 10:55 | NUR ---
PT IS UNABLE TO RECIEVE BLOOD D/T JEHOVAH'S WITNESSES
--- NOTE | 2019-06-03 18:24 | NUR ---
PT HAS BEEN ALERT AND ORIENTED ALL DAY AFTER THE BLOOD SUGAR INCIDENT. FAMILY HAS BEEN IN AND OUT OF HER ROOM VISIITNG VARIOUS TIMES TODAY. LOTS OF PATIENT EDUCATION DONE ON HER CONDITION AND WHAT TO EXPECT SINCE SHE DENIED BLOOD. NO FAMILY PRESENT ATT HIS TIME. ALL QUESTIONS ANSWERED TO THE BEST OF MY ABILITY. PT WOULD LIKE TO SPEAK TO DOCTOR TOMORROW ABOUT LUMP IN HER LEFT UNDER ARM. CL IN REACH, SRX2.
--- NOTE | 2019-06-03 19:10 | NUR ---
BEDSIDE REPORT RECEIVED FROM DAY SHIFT, PT CARE ASSUMED. WROTE NAME ON BOARD. PT SITTING UP IN BED, WATCHING TV, AAOX4. DENIES PAIN OR ANY OTHER NEEDS AT THIS TIME. BED IN LOWEST POSITION, SR X2, CALL LIGHT WITHIN REACH. WILL CONTINUE TO MONITOR.
[2019-06-04 04:05] VITALS: BP 132/82
[2019-06-04 04:33] LABS: BASOPHILS 0.2 % (0-2); EOSINOPHILS 2.9 % (0-7); HEMATOCRIT 23.7 % (36.0-48.0); IMMATURE GRANULOCYTES 0.4 % (0-5); LYMPHOCYTES 37.5 % (15-50); MCH 28.7 pg (26.0-34.0); MCHC 31.2 g/dL (31.0-37.0); MCV 91.9 fL (80.0-100.0); MEAN PLATELET VOLUME 9.5 fL (7.4-10.4); MONOCYTES 7.5 % (2-11); NEUTROPHILS 51.5 % (40-80); PLATELET COUNT 316 10x3/uL (130-400); RBC 2.58 10x6/uL (4.00-5.40); RDW 13.2 % (11.5-14.5); WBC 5.5 10x3/uL (4.8-10.8)
[2019-06-04 04:36] LABS: HEMOGLOBIN 7.4 g/dL (12-16)
[2019-06-04 05:07] LABS: ANION GAP 13.7 mmol/L (8-16); CALCIUM 7.5 mg/dL (8.5-10.1); CARBON DIOXIDE 23.9 mmol/L (21.0-32.0); CREATININE - SERUM 4.7 mg/dL (0.6-1.3); POTASSIUM - SERUM 4.6 mmol/L (3.5-5.1)
--- NOTE | 2019-06-04 07:40 | NUR ---
PT RESTING PEACEFULLY WHEN I ENTERED, BREATHS EVEN, REGUALR AND UNLABORED. NO SIGNS OR SYMTPOMS OF ACUTE DISTRESS NOTED AT THIS TIME. NO FAMILY PRESENT AT THIS TIME. CL IN REACH, SRX2, DID NOT FURTHER DISTURB. LAST BLOOD SUGAR WAS 161.
[2019-06-04 08:08] VITALS: BP 144/82
[2019-06-04 11:44] VITALS: BP 183/80
[2019-06-04 16:27] VITALS: BP 166/76
--- NOTE | 2019-06-04 17:06 | NUR ---
I have reviewed this patient and I concur with the Shift Assessment completed by the Licensed Practical Nurse today this shift.
[2019-06-04 20:20] VITALS: BP 161/75
[2019-06-05 00:37] VITALS: BP 146/67
[2019-06-05 04:30] VITALS: BP 157/39
[2019-06-05 06:33] LABS: BASOPHILS 0.2 % (0-2); EOSINOPHILS 3.9 % (0-7); HEMATOCRIT 26.7 % (36.0-48.0); HEMOGLOBIN 8.4 g/dL (12-16); IMMATURE GRANULOCYTES 0.9 % (0-5); LYMPHOCYTES 27.1 % (15-50); MCH 28.4 pg (26.0-34.0); MCHC 31.5 g/dL (31.0-37.0); MCV 90.2 fL (80.0-100.0); MEAN PLATELET VOLUME 9.3 fL (7.4-10.4); MONOCYTES 6.3 % (2-11); NEUTROPHILS 61.6 % (40-80); PLATELET COUNT 341 10x3/uL (130-400); RBC 2.96 10x6/uL (4.00-5.40); RDW 13.2 % (11.5-14.5); WBC 5.4 10x3/uL (4.8-10.8)
[2019-06-05 06:48] LABS: ANION GAP 13.8 mmol/L (8-16); CALCIUM 8.3 mg/dL (8.5-10.1); CARBON DIOXIDE 23.1 mmol/L (21.0-32.0); CREATININE - SERUM 4.5 mg/dL (0.6-1.3); MAGNESIUM - SERUM 1.8 mg/dL (1.8-2.4); POTASSIUM - SERUM 4.9 mmol/L (3.5-5.1)
[2019-06-05 07:03] LABS: % SATURATION 24 % (15-55); IRON 50 ug/dl (35-150); TOTAL IRON BIND CAPACITY 206 ug/dl (260-445); UNSAT IRON BIND CAPACITY 156 ug/dl (150-375)
--- NOTE | 2019-06-05 07:22 | NUR ---
PT RESTING PEACEFULLY, BREATHS EVEN, REGULAR AND UNLABORED. NO SIGNS OR SYMPTOMS OF ACUTE DISTRESS NOTED AT THIS TIME. H&H MUCH BETTER TODAY, WILL INFORM PT WHEN SHE WAKES UP. NO FAMILY/FRIENDS PRESENT AT THIS TIME. CL IN REACH, SRX2.
[2019-06-05 07:57] VITALS: BP 185/86
--- NOTE | 2019-06-05 10:45 | NUR ---
I have reviewed this patient and I concur with the Shift Assessment completed by the Licensed Practical Nurse today this shift.
[2019-06-05 11:32] VITALS: Ht 157.5 cm; Wt 96.5 kg
[2019-06-05 15:31] VITALS: BP 148/55
--- NOTE | 2019-06-05 16:58 | NUR ---
OT NOTE: PT REQUIRED MIN/MOD A FOR ADL MOB . PT REQUIRED MOD A FOR TOILET HYGIENE AND CLOTHING MANAGEMENT. THANK YOU, ZACK HOUSTON
--- NOTE | 2019-06-05 18:42 | NUR ---
PT HAS BEEN VERY SLEEPY TODAY. BLOOD SUGARS ARE HIGH (200S). PT HAS WOKE FOR MEALS, JUST SLEPT A LOT IN BETWEEN. NO COMPLAINTS/CONCERNS, NO FAMILY PRESENT AT BEDSIDE AT THIS TIME. CL IN REACH, SRX2.
[2019-06-05 20:48] VITALS: BP 149/70
[2019-06-06 00:19] VITALS: BP 153/73
[2019-06-06 04:30] VITALS: BP 167/108
[2019-06-06 06:19] LABS: BASOPHILS 0.2 % (0-2); EOSINOPHILS 1.9 % (0-7); HEMATOCRIT 25.7 % (36.0-48.0); IMMATURE GRANULOCYTES 1.1 % (0-5); LYMPHOCYTES 32.2 % (15-50); MCH 28.1 pg (26.0-34.0); MCHC 31.1 g/dL (31.0-37.0); MCV 90.2 fL (80.0-100.0); MEAN PLATELET VOLUME 9.5 fL (7.4-10.4); MONOCYTES 8.4 % (2-11); NEUTROPHILS 56.2 % (40-80); PLATELET COUNT 341 10x3/uL (130-400); RBC 2.85 10x6/uL (4.00-5.40); RDW 13.3 % (11.5-14.5); WBC 5.3 10x3/uL (4.8-10.8)
[2019-06-06 06:24] LABS: CALCIUM 8.2 mg/dL (8.5-10.1); CARBON DIOXIDE 22.9 mmol/L (21.0-32.0); CREATININE - SERUM 4.8 mg/dL (0.6-1.3); MAGNESIUM - SERUM 1.9 mg/dL (1.8-2.4); POTASSIUM - SERUM 4.9 mmol/L (3.5-5.1)
--- NOTE | 2019-06-06 07:00 | NUR ---
RECEIVED REPORT. ASSUMED CARE OF PATIENT. CALL LIGHT WITHIN REACH. RESTING IN BED WITH EYES CLOSED, EASILY AROUSED. NO DISTRESS. RESP EVEN AND UNLABORED. NO FAMILY AT BEDSIDE. SCDS PATENT TO BILATERAL LOWER EXT.
[2019-06-06 07:44] VITALS: BP 159/78
--- NOTE | 2019-06-06 08:13 | NUR ---
DIETARY REQUEST PLACED PER PATIENT REQUEST
--- NOTE | 2019-06-06 09:48 | NUR ---
FSBS 268. 30 UNITS LEVIMER ADMINISTERED ORDERED.
--- NOTE | 2019-06-06 11:35 | NUR ---
FSBS 340. 8 UNITS HUMULIN ADMINISTERED PER SLIDING SCALE.
[2019-06-06 11:41] VITALS: BP 146/71
--- NOTE | 2019-06-06 11:55 | NUR ---
SPOKE WITH ALIRIO FERRARA AND INFORMED HER THAT THE PATIENT IS VERY DROWSEY, UNABLE TO SEND PATIENT HOME LIKE THIS DUE TO THE SCHEDULED MEDICATIONS ADMINISTERED THIS AM. NEW ORDERS RECEIVED TO D/C THE VALIUM AND FLEXARIL, AND DECREASE NEURONTIN TO 200MG PO BID. LET PATIENT SLEEP OFF THE SEDATION AND CAN GO HOME LATER TONIGHT WHEN SEDATION HAS WORN OFF. THANKED JOSIAS.
--- NOTE | 2019-06-06 13:18 | NUR ---
DISCHARGE ON HOLD, PATIENT IS WANTING TO GO TO [facility] FOR REHAB.
[2019-06-06 14:56] VITALS: BP 161/76
--- NOTE | 2019-06-06 15:07 | MORECARE ---
CASE MANAGEMENT DISCHARGE SUMMARY PATIENT: ANGIE LOPEZ MANNY UNIT: [id number] ADM DATE: 06/02/19 AGE: 63 : 59 SEX: F ROOM/BED: D.2111 AUTHOR: DAMARIS PEREZ PHYSICIAN: REFERRING PHYSICIAN: GRISEL SKINNER DO DATE OF SERVICE: 06/06/19 Discharge Plan Patient Name: ANGIE LOPEZ Facility: [facility]:[place] : 1955 Planned Disposition: Snf Facility Anticipated Discharge Date: 06/07/19 Discharge Date: Expected LOS: 5 Initial Reviewer: [email or web address] Initial Review Date: 06/06/2019 Generated: 06/06/19 4:07 pm External Providers External Provider: [facility] Next Contact Date: 06/07/2019 Service Request Date: Service Type: Resolution: Reviewer: Comments: Patient Name: ANGIE LOPEZ Page 51663 at 1507 All edits/amendments must be made on the electronic document DICTATION DATE: 06/06/19 150 TUBE REBUILDER: BORA 06/06/19 150 RPT#: [id number] [place] DATE: STATUS: ADM IN [facility] [address] [place] [address] END OF REPORT
--- NOTE | 2019-06-06 15:14 | MORECARE ---
CASE MANAGEMENT DISCHARGE SUMMARY PATIENT: ANGIE LOPEZ MANNY UNIT: [id number] ADM DATE: 06/02/19 AGE: 63 : 59 SEX: F ROOM/BED: D.[facility]2 AUTHOR: ANA,DOC PHYSICIAN: REFERRING PHYSICIAN: GRISEL SKINNER DO DATE OF SERVICE: 06/06/19 Discharge Plan Patient Name: ANGIE LOPEZ Facility: [facility]:[place] : 1955 Planned Disposition: Fpc Facility Anticipated Discharge Date: 06/07/19 Discharge Date: Expected LOS: 5 Initial Reviewer: [email or web address] Initial Review Date: 06/06/2019 Generated: 06/06/19 4:14 pm DCPIA - Discharge Planning Initial Assessment Updated by [id number]: Chaitanya Anand on 06/06/19 3:08 pm * Is the patient Alert and Oriented? Yes * How many steps to enter\exit or inside your home? NONE * PCP DR. MASON KERR * Pharmacy [facility] * Preadmission Environment Home with Family * ADLs Independent * Equipment Glucometer Other Oxygen Power Chair or Electric Scooter Rolling Walker Wheelchair * Other Equipment ROLLATOR WALKER WALKING BOOT / BRACE HOME AND PORTABLE OXYGEN, UNKNOWN PROVIDER * List name and contact numbers for known caregivers / representatives who currently or will assist patient after discharge: AMINA ARIAS, SISTER, JENNIFER DOZIER, MOTHER, * Verbal permission to speak to the caregivers and representatives has been obtained from the patient. Yes * Community resources currently utilized Home Health * Please name any agencies selected above. [facility] * Additional services required to return to the preadmission environment? Yes * Can the patient safely return to the preadmission environment? Yes * Has this patient been hospitalized within the prior 30 days at any hospital? Yes Coverage Notice Reviewer: [email or web address] - Chaitanya Anand Notice Issued Date-Time: 06/06/2019 12:45 Notice Type: Patient Choice Letter Notice Delivered To: Family Member Relationship to Patient: Sister Supervisor Ticket Sales Name: AMINA ARIAS Delivery Method: HAND - Hand Delivered Gail Days: Prior Verbal Notification: Recipient Understood Notice: Yes Recipient Signature: Yes Med Rec Note Co-signed by Attending: Coverage Notice Comment: [facility] Reviewer: [email or web address] Harvey Anand Notice Issued Date-Time: 06/06/2019 12:45 Notice Type: IM Discharge Notice Notice Delivered To: Family Member Relationship to Patient: Sister Supervisor Ticket Sales Name: AMINA ARIAS Delivery Method: HAND - Hand Delivered Gail Days: Prior Verbal Notification: Recipient Understood Notice: Yes Recipient Signature: Yes Med Rec Note Co-signed by Attending: Coverage Notice Comment: Last DP export: 06/06/19 2:07 p Patient Name: ANGIE LOPEZ Page [phone] at 1514 All edits/amendments must be made on the electronic document DICTATION DATE: 06/06/191513 PREPARED FOODS SERVICE TEAM MEMBER: BORA 06/06/191513 RPT#: [id number] DC DATE: STATUS: ADM IN [facility] [address] [place] [address] END OF REPORT
--- NOTE | 2019-06-06 15:34 | MORECARE ---
CASE MANAGEMENT DISCHARGE SUMMARY PATIENT: ANGIE LOPEZ MANNY UNIT: [id number] ADM DATE: 06/02/19 AGE: 63 : 59 SEX: F ROOM/BED: D.8171 AUTHOR: ANA,DOC PHYSICIAN: REFERRING PHYSICIAN: GRISEL SKINNER DO DATE OF SERVICE: 06/06/19 Discharge Plan Patient Name: ANGIE LOPEZ Facility: [facility]:[place] : 1955 Planned Disposition: Senior Living Facility Anticipated Discharge Date: 06/07/19 Discharge Date: Expected LOS: 5 Initial Reviewer: [email or web address] Initial Review Date: 06/06/2019 Generated: 06/06/19 4:34 pm Comments DCP- Discharge Planning Updated by [email or web address]: Chaitanya Anand on 06/06/19 2:[address] Patient Name: ANGIE LOPEZ Admission Status: ER Accout number: [id number] Admission Date: 06-02-2019 : 1955 Admission Diagnosis: Attending: GRISEL SKINNER Current LOS: 4 Anticipated DC Date: 06-07-2019 Planned Disposition: Senior Living Facility Primary Insurance: HU[employer] CHOICE PPO [facility] PLANNED EXTERNAL PROVIDER: [facility], MEDICARE REHAB BED Discharge Planning Comments: CM RECEIVED DISCHARGE ORDER. CM MET WITH PT IN ROOM TO DISCUSS DISCHARGE PLANNING AND NEEDS.ANGIE LOPEZ provided verbal consent to discuss current and ongoing needs with/in the presence of: HER MOTHER AND SISTER. PT REPORTS LIVING AT HOME INDEPENDENTLY AND ALONE IN HER APARMENT, BUT HAS BEEN STAYING WITH HER GRANDSON AND GRANDDAUGHTER WHO HAVE BEEN ASSISTING WITH CARE IF NEEDED. PT HAS HOME AND PORTABLE OXYGEN, GLUCOMETER, POWER CHAIR, WALKER WITH WHEELS AND SEAT, WHEELCHAIR AND LEG BRACE; PT DOES NOT KNOW THE NAME OF HER MEDICAL EQUIPMENT PROVIDER. PT HAS [facility]. CM DISCUSSED AVAILABILITY OF HOME HEALTH, REHAB SERVICES AND MEDICAL EQUIPMENT. PT INITIALLY DENIED DISCHARGE NEEDS, REPORTS HER FAMILY WILL PICK HER UP FOR DISCHARGE HOME. IMPORTANT MESSAGE FROM MEDICARE PROVIDED AND EXPLAINED. CM DISCUSSED PT'S WEAKNESS AND MOST RECENT THERAPY NOTES. CM EXPRESSED CONCERN OF PT GOING HOME AND HIGHLY RECOMMENDED REHAB. PT AND FAMILY AGREED THAT PT NEEDS REHAB, REQUESTED [facility] PT HAS BEEN THERE IN THE PAST. CHOICE SIGNED. CM CALLED [facility] AT [phone], SPOKE TO [facility] AND PROVIDED REFERRAL INFORMATION. CM CALLED [facility], LEFT MESSAGE WITH REFERAL INFORMATION AT [phone]. CM NOTIFIED BOTH [facility]EN[facility] AND [facility] THAT PT IS READY TO DISCHARGE TODAY. CM FAXED REFERRAL TO [facility] AT [phone] AND [facility] AT [phone]. CM NOTIFIED ALIRIO BONNER. CM WAITING ADMISSION DETERMINATION FROM [facility] WELL INSURANCE AUTHORIZATION FOR REHAB SERVICES. Apple Checker: Chaitanya Anand DCPIA - Discharge Planning Initial Assessment Updated by [id number]: Chaitanya Anand on 06/06/19 3:08 pm * Is the patient Alert and Oriented? Yes * How many steps to enter\exit or inside your home? NONE * PCP DR. MASON KERR * Pharmacy [facility] * Preadmission Environment Home with Family * ADLs Independent * Equipment Glucometer Other Oxygen Power Chair or Electric Scooter Rolling Walker Wheelchair * Other Equipment ROLLATOR WALKER WALKING BOOT / BRACE HOME AND PORTABLE OXYGEN, UNKNOWN PROVIDER * List name and contact numbers for known caregivers / representatives who currently or will assist patient after discharge: AMINA ARIAS, SISTER, JNENIFER DOZIER, MOTHER, * Verbal permission to speak to the caregivers and representatives has been obtained from the patient. Yes * Community resources currently utilized Home Health * Please name any agencies selected above. [facility] * Additional services required to return to the preadmission environment? Yes * Can the patient safely return to the preadmission environment? Yes * Has this patient been hospitalized within the prior 30 days at any hospital? Yes Coverage Notice Reviewer: [id number] Harvey Anand Notice Issued Date-Time: 06/06/2019 12:45 Notice Type: Patient Choice Letter Notice Delivered To: Family Member Relationship to Patient: Sister Sustainable Design Coordinator Name: AMINA ARIAS Delivery Method: HAND - Hand Delivered Gail Days: Prior Verbal Notification: Recipient Understood Notice: Yes Recipient Signature: Yes Med Rec Note Co-signed by Attending: Coverage Notice Comment: [facility] Reviewer: [email or web address] Harvey Anand Notice Issued Date-Time: 06/06/2019 12:45 Notice Type: IM Discharge Notice Notice Delivered To: Family Member Relationship to Patient: Sister Sustainable Design Coordinator Name: AMINA ARIAS Delivery Method: HAND - Hand Delivered Gail Days: Prior Verbal Notification: Recipient Understood Notice: Yes Recipient Signature: Yes Med Rec Note Co-signed by Attending: Coverage Notice Comment: Last DP export: 06/06/19 2:14 p Patient Name: ANGIE LOPEZ Page [phone] at 1534 All edits/amendments must be made on the electronic document DICTATION DATE: 06/06/191533 COMMANDING OFFICER GARAGE: BORA 06/06/19 153 RPT#: [id number] DC DATE: STATUS: ADM IN [facility] [address] [place] [address] END OF REPORT
--- NOTE | 2019-06-06 15:45 | NUR ---
ASSISTING PATIENT TO BEDSIDE COMMODE AND NOTICED PATIENT IV TO RIGHT WRIST NOT PATENT AND STICKING OUT OF SKIN. NO BLEEDING. CATHETER TIP INTACT. PATIENT STATES SHE DOES NOT WANT ANOTHER IV CATHETER PUT IT IN. THIS TEXTILE PIN WORKER EXPLAINED SHE MAY BE HERE FOR A COUPLE MORE DAYS UNTIL SHE GOES TO [facility] AND SHE NEEDS AN IV. PATIENT IS THINKING ABOUT LETTING THIS TEXTILE PIN WORKER PLACE IV.
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
--- NOTE | 2019-06-06 16:00 | NUR ---
PATIENT OFF UNIT FOR CTA OF CHEST. NO DISTRESS UPON LEAVING UNIT.
--- NOTE | 2019-06-06 16:20 | NUR ---
OT NOTE: PT COMPLETED BED MOB TASKS WITH MIN A. PT COMPLETED HYGIENE TASKS WITH MIN/MOD A. THANK YOU, ZACK HOUSTON
--- NOTE | 2019-06-06 17:05 | NUR ---
FSBS 239. 4 UNITS HUMULIN ADMINISTERED PER SLIDING SCALE.
--- NOTE | 2019-06-06 19:05 | NUR ---
REPORT RECEIVED, WILL CONTINUE POC. PATIENT IS AAOX4, SITTING UP IN BED. NO S/S OF DISTRESS OBSERVED, RR EVEN AND UNLABORED ON ROOM AIR. PATIENT DENIES NEEDS AT THIS TIME. CL IN REACH, BED LOCKED AND LOWERED. WILL CTM.
[2019-06-06 20:00] VITALS: BP 161/76
--- NOTE | 2019-06-06 21:33 | NUR ---
PATIENT BS 211, 4 UNITS INSULIN ADMINISTERED TO RIGHT ARM. PATIENT REFUSED COLACE AND MIRALAX TONIGHT. FRESH ICE WATER GIVEN. PATIENT REPOSITIONED IN BED.
[2019-06-07] VITALS: BP 162/72
--- NOTE | 2019-06-07 01:46 | NUR ---
I have reviewed this patient and I concur with the Shift Assessment completed by the Licensed Practical Nurse today this shift.
[2019-06-07 04:00] VITALS: BP 144/64
[2019-06-07 05:55] LABS: CALCIUM 7.9 mg/dL (8.5-10.1); CARBON DIOXIDE 22.9 mmol/L (21.0-32.0); CREATININE - SERUM 4.8 mg/dL (0.6-1.3); MAGNESIUM - SERUM 1.9 mg/dL (1.8-2.4); POTASSIUM - SERUM 4.9 mmol/L (3.5-5.1)
[2019-06-07 06:18] LABS: BASOPHILS 0.1 % (0-2); EOSINOPHILS 1.1 % (0-7); HEMOGLOBIN 7.9 g/dL (12-16); IMMATURE GRANULOCYTES 0.7 % (0-5); LYMPHOCYTES 22.7 % (15-50); MCH 28.3 pg (26.0-34.0); MCHC 31.6 g/dL (31.0-37.0); MCV 89.6 fL (80.0-100.0); MEAN PLATELET VOLUME 9.6 fL (7.4-10.4); MONOCYTES 7.1 % (2-11); NEUTROPHILS 68.3 % (40-80); PLATELET COUNT 348 10x3/uL (130-400); RBC 2.79 10x6/uL (4.00-5.40); RDW 13.3 % (11.5-14.5); WBC 7.1 10x3/uL (4.8-10.8)
--- NOTE | 2019-06-07 08:30 | NUR ---
OT NOTE: PT COMPLETED BED MOB SUPINE TO SIT WITH SBA. PT COMPLETED SIT TO STAND WITH CGA. PT COMPLETED SIDE STEPS WITH CGA. PT COMPLETED FACE/HAND HYGIENE. THANK YOU, ZACK HOUSTON
--- NOTE | 2019-06-07 08:58 | MORECARE ---
CASE MANAGEMENT DISCHARGE SUMMARY PATIENT: ANGIE LOPEZ MANNY UNIT: [id number] ADM DATE: 06/02/19 AGE: 63 : 59 SEX: F ROOM/BED: D.[facility] AUTHOR: ANA,DOC PHYSICIAN: REFERRING PHYSICIAN: GRISEL SKINNER DO DATE OF SERVICE: 06/07/19 Discharge Plan Patient Name: ANGIE LOPEZ Facility: [facility]:[place] : 1955 Planned Disposition: Mcfp Facility Anticipated Discharge Date: 06/07/19 Discharge Date: Expected LOS: 5 Initial Reviewer: [id number] Initial Review Date: 06/06/2019 Generated: 06/07/19 9:58 am Comments DCP- Discharge Planning Updated by [email or web address]: Chaitanya Anand on 06/07/19 7:[address] Patient Name: ANGIE LOPEZ Encounter No: [id number] : 1955 Primary Insurance: [employer] CHOICE PPO MCR ADVANT Anticipated DC Date: 06-07-2019 Planned Disposition: Mcfp Facility External Planned Provider: [facility], MEDICARE REHAB BED Discharge Planning Comments: CM FAXED REFERRAL UPDATE TO [facility] AT [phone]. [facility] TO PERSONALLY ASSESS PT THIS MORNING AT HOSPITAL. CM WAITING ADMISSION DETERMINATION FROM [facility] WELL INSURANCE AUTHORIZATION FOR REHAB SERVICES. Transport Medic: Chaitanya Aannd DCP- Discharge Planning Updated by [id number]: Chaitanya Anand on 06/06/19 2:[address] Patient Name: ANGIE LOPEZ Admission Status: ER Accout number: [id number] Admission Date: 06-02-2019 : 1955 Admission Diagnosis: Attending: GRISEL SKINNER Current LOS: 4 Anticipated DC Date: 06-07-2019 Planned Disposition: Mcfp Facility Primary Insurance: HUMANA CHOICE PPO MCR ADVANT PLANNED EXTERNAL PROVIDER: [facility], MEDICARE REHAB BED Discharge Planning Comments: CM RECEIVED DISCHARGE ORDER. CM MET WITH PT IN ROOM TO DISCUSS DISCHARGE PLANNING AND NEEDS.ANGIE LOPEZ provided verbal consent to discuss current and ongoing needs with/in the presence of: HER MOTHER AND SISTER. PT REPORTS LIVING AT HOME INDEPENDENTLY AND ALONE IN HER APARMENT, BUT HAS BEEN STAYING WITH HER GRANDSON AND GRANDDAUGHTER WHO HAVE BEEN ASSISTING WITH CARE IF NEEDED. PT HAS HOME AND PORTABLE OXYGEN, GLUCOMETER, POWER CHAIR, WALKER WITH WHEELS AND SEAT, WHEELCHAIR AND LEG BRACE; PT DOES NOT KNOW THE NAME OF HER MEDICAL EQUIPMENT PROVIDER. PT HAS [facility]. CM DISCUSSED AVAILABILITY OF HOME HEALTH, REHAB SERVICES AND MEDICAL EQUIPMENT. PT INITIALLY DENIED DISCHARGE NEEDS, REPORTS HER FAMILY WILL PICK HER UP FOR DISCHARGE HOME. IMPORTANT MESSAGE FROM MEDICARE PROVIDED AND EXPLAINED. CM DISCUSSED PT'S WEAKNESS AND MOST RECENT THERAPY NOTES. CM EXPRESSED CONCERN OF PT GOING HOME AND HIGHLY RECOMMENDED REHAB. PT AND FAMILY AGREED THAT PT NEEDS REHAB, REQUESTED [facility] PT HAS BEEN THERE IN THE PAST. CHOICE SIGNED. CM CALLED [facility] AT [phone], SPOKE TO GLENYS AND PROVIDED REFERRAL INFORMATION. CM CALLED [facility], LEFT MESSAGE WITH REFERAL INFORMATION AT [phone]. CM NOTIFIED BOTH [facility] AND [facility] THAT PT IS READY TO DISCHARGE TODAY. CM FAXED REFERRAL TO [facility] AT [phone] AND [facility] AT [phone]. CM NOTIFIED [facility]IRIO BONNER. CM WAITING ADMISSION DETERMINATION FROM [facility] WELL INSURANCE AUTHORIZATION FOR REHAB SERVICES. Transport Medic: Chaitanya Anand DCPIA - Discharge Planning Initial Assessment Updated by [email or web address]: Chaitanya Anand on 06/06/19 3:08 pm * Is the patient Alert and Oriented? Yes * How many steps to enter\exit or inside your home? NONE * PCP DR. MASON KERR * Pharmacy [facility] * Preadmission Environment Home with Family * ADLs Independent * Equipment Glucometer Other Oxygen Power Chair or Electric Scooter Rolling Walker Wheelchair * Other Equipment ROLLATOR WALKER WALKING BOOT / [facility] AND PORTABLE OXYGEN, UNKNOWN PROVIDER * List name and contact numbers for known caregivers / representatives who currently or will assist patient after discharge: AMINA ARIAS, SISTER, JENNIFER DOZIER, MOTHER, * Verbal permission to speak to the caregivers and representatives has been obtained from the patient. Yes * Community resources currently utilized Home Health * Please name any agencies selected above. [facility] * Additional services required to return to the preadmission environment? Yes * Can the patient safely return to the preadmission environment? Yes * Has this patient been hospitalized within the prior 30 days at any hospital? Yes Coverage Notice Reviewer: [id number] Harvey Anand Notice Issued Date-Time: 06/06/2019 12:45 Notice Type: Patient Choice Letter Notice Delivered To: Family Member Relationship to Patient: Sister Sample Stitcher Name: AMINA ARIAS Delivery Method: HAND - Hand Delivered Gail Days: Prior Verbal Notification: Recipient Understood Notice: Yes Recipient Signature: Yes Med Rec Note Co-signed by Attending: Coverage Notice Comment: [facility] Reviewer: [id number] Harvey Anand Notice Issued Date-Time: 06/06/2019 12:45 Notice Type: IM Discharge Notice Notice Delivered To: Family Member Relationship to Patient: Sister Sample Stitcher Name: AMINA ARIAS Delivery Method: HAND - Hand Delivered Gail Days: Prior Verbal Notification: Recipient Understood Notice: Yes Recipient Signature: Yes Med Rec Note Co-signed by Attending: Coverage Notice Comment: Last DP export: 06/06/19 2:35 p Patient Name: ANGIE LOPEZ Page 17185 at 0858 All edits/amendments must be made on the electronic document DICTATION DATE: 06/07/19857 CRAYON SORTING MACHINE FEEDER: BORA 06/07/19857 RPT#: [id number] DC DATE: STATUS: ADM IN [facility] [address] [place] [address] END OF REPORT
[2019-06-07 10:09] VITALS: BP 171/77
[2019-06-07 12:49] VITALS: BP 171/75
--- NOTE | 2019-06-07 16:09 | NUR ---
OT NOTE: PT MORE ALERT TODAY. PERFORMED BED MOB WITH MIN ASSIST; HAD PT PRACTICE DONNING L LE BRACE/SHOE AND R SHOE. REQUIRED EXT TIME, BUT WAS ABLE TO PERFORM WITH ONLY MIN ASSIST FOR BRACE. ABLE TO AYDEN GOWN WITH MIN ASSIST; SIMPLE GROOMING INCLUDING COMBING HAIR AND APPLYING LOTION WITH SET UP. SIT TO STAND WITH WALKER AND MIN ASSIST. PT AMB INTO HALLWAY WITH MIN ASSIST, WALKER, AND O2..REQUIRED APPROX 10 MIN TO AMB 35-40 FT. PT VERY FATIGUED WITH DECREASED BALANCE DURING AMB. 3 EPISODES OF LOB DURING AMB. TRANSFERRED FROM CHAIR TO BED WITH MIN ASSIST. SIT TO SUPINE WITH MIN ASSIST; MOD ASSIST TO REPOSITION IN BED. NEDA ALBERTS, OTR/L
--- NOTE | 2019-06-07 17:15 | NUR ---
I have reviewed this patient and I concur with the Shift Assessment completed by the Licensed Practical Nurse today this shift.
[2019-06-07 18:35] VITALS: BP 161/79
--- NOTE | 2019-06-07 19:20 | NUR ---
REPORT RECEIVED, WILL CONTINUE POC. PATIENT IS AAOX4, SITTING UP IN BED. NO S/S OF DISTRESS OBSERVED, RR EVEN AND UNLABORED ON 2L O2 VIA NC. PATIENT DENIES NEEDS AT THIS TIME CL IN REACH, BED LOCKED AND LOWERED. WILL CTM.
[2019-06-07 20:00] VITALS: BP 178/82
--- NOTE | 2019-06-07 21:00 | NUR ---
BS 369, 16 UNITS INSULIN ADMINISTERED. PATIENT UP TO BSC, 1800CC YELLOW URINE NOTED. PATIENT BACK TO BED, CL IN REACH.
--- NOTE | 2019-06-07 22:32 | NUR ---
REPORT RECEIVED, WILL CONTINUE POC. PATIENT IS AAOX4, SITTING UP IN BED. NO S/S OF DISTRESS OBSERVED, RR EVEN AND UNLABORED ON 2L O2 VIA NC. PATIENT DENIES NEEDS AT THIS TIME. CL IN REACH, BED LOCKED AND LOWERED. WILL CTM.
--- NOTE | 2019-06-07 23:30 | NUR ---
FSBS 323, 12 UNITS HUMILIN ADMINISTERED TO RT ARM.
[2019-06-08] VITALS: BP 156/68
[2019-06-08 04:00] VITALS: BP 154/68
--- NOTE | 2019-06-08 04:47 | NUR ---
FSBS 36, 25ML 50% DEXTROSE ADMINISTERED, LABS DRAWN
--- NOTE | 2019-06-08 05:20 | NUR ---
FSBS 117
--- NOTE | 2019-06-08 05:30 | NUR ---
I have reviewed this patient and I concur with the Shift Assessment completed by the Licensed Practical Nurse today this shift.
[2019-06-08 05:38] LABS: BASOPHILS 0.2 % (0-2); EOSINOPHILS 1.7 % (0-7); HEMATOCRIT 26.4 % (36.0-48.0); HEMOGLOBIN 8.4 g/dL (12-16); IMMATURE GRANULOCYTES 0.5 % (0-5); LYMPHOCYTES 29.1 % (15-50); MCH 28.2 pg (26.0-34.0); MCHC 31.8 g/dL (31.0-37.0); MCV 88.6 fL (80.0-100.0); MEAN PLATELET VOLUME 9.5 fL (7.4-10.4); MONOCYTES 10.1 % (2-11); NEUTROPHILS 58.4 % (40-80); PLATELET COUNT 366 10x3/uL (130-400); RBC 2.98 10x6/uL (4.00-5.40); RDW 13.3 % (11.5-14.5); WBC 6.5 10x3/uL (4.8-10.8)
[2019-06-08 05:51] LABS: ANION GAP 13.9 mmol/L (8-16); CARBON DIOXIDE 23.4 mmol/L (21.0-32.0); CREATININE - SERUM 4.7 mg/dL (0.6-1.3); POTASSIUM - SERUM 4.3 mmol/L (3.5-5.1)
--- NOTE | 2019-06-08 07:31 | NUR ---
REPORT RECIEVED. PT SITTING SEMI FOWLERS. RR EVEN AND UNALBORED. NO DISTRESS NOTED. SHE HAS A L AC THAT IS SL. BED LOCKED AND IN LOWEST POSITION, CALL LIGHT WITHIN REACH. WILL CTM
[2019-06-08 08:29] VITALS: BP 197/85
--- NOTE | 2019-06-08 08:31 | MORECARE ---
CASE MANAGEMENT DISCHARGE SUMMARY PATIENT: ANGIE LOPEZ MANNY UNIT: [id number] ADM DATE: 06/02/19 AGE: 63 : 59 SEX: F ROOM/BED: D.9938 AUTHOR: ANA,DOC PHYSICIAN: REFERRING PHYSICIAN: GRISEL SKINNER DO DATE OF SERVICE: 06/08/19 Discharge Plan Patient Name: ANGIE LOPEZ Facility: [facility]:[place] : 1955 Planned Disposition: [facility] Facility Anticipated Discharge Date: 06/07/19 Discharge Date: Expected LOS: 5 Initial Reviewer: [id number] Initial Review Date: 06/06/2019 Generated: 06/08/19 9:30 am Comments DCP- Discharge Planning Updated by [id number]: Chaitanya Anand on 06/08/19 7:[address] Patient Name: ANGIE LOPEZ Encounter No: [id number] : 1955 Primary Insurance: [employer] CHOICE PPO MCR ADVANT Anticipated DC Date: 06-07-2019 Planned Disposition: [facility] Facility External Planned Provider: [facility], MEDICARE REHAB BED Discharge Planning Comments: CM FAXED REFERRAL UPDATE TO [facility] AT [phone]. CM WAITING ADMISSION DETERMINATION FROM [facility] WELL INSURANCE AUTHORIZATION FOR REHAB SERVICES. Advanced Manufacturing Technician: Chaitanya Anand DCP- Discharge Planning Updated by [id number]: Chaitanya Anand on 06/07/19 7:[address] Patient Name: ANGIE LOPEZ Encounter No: [id number] : 1955 Primary Insurance: [employer]NA CHOICE PPO MCR ADVANT Anticipated DC Date: 06-07-2019 Planned Disposition: [facility] Facility External Planned Provider: [facility], MEDICARE REHAB BED Discharge Planning Comments: CM FAXED REFERRAL UPDATE TO [facility] AT [phone]. [facility] TO PERSONALLY ASSESS PT THIS MORNING AT HOSPITAL. CM WAITING ADMISSION DETERMINATION FROM [facility] WELL INSURANCE AUTHORIZATION FOR REHAB SERVICES. Advanced Manufacturing Technician: Chaitanya Anand DCP- Discharge Planning Updated by [id number]: Chaitanya Anand on 06/06/19 2:[address] Patient Name: ANGIE LOPEZ Admission Status: ER Accout number: [id number] Admission Date: 06-02-2019 : 1955 Admission Diagnosis: Attending: GRISEL SKINNER Current LOS: 4 Anticipated DC Date: 06-07-2019 Planned Disposition: [facility] Facility Primary Insurance: [employer] P[employer] MCR ADVANT PLANNED EXTERNAL PROVIDER: [facility], MEDICARE REHAB BED Discharge Planning Comments: CM RECEIVED DISCHARGE ORDER. CM MET WITH PT IN ROOM TO DISCUSS DISCHARGE PLANNING AND NEEDS.ANGIE LOPEZ provided verbal consent to discuss current and ongoing needs with/in the presence of: HER MOTHER AND SISTER. PT REPORTS LIVING AT HOME INDEPENDENTLY AND ALONE IN HER APARMENT, BUT HAS BEEN STAYING WITH HER GRANDSON AND GRANDDAUGHTER WHO HAVE BEEN ASSISTING WITH CARE IF NEEDED. PT HAS HOME AND PORTABLE OXYGEN, GLUCOMETER, POWER CHAIR, WALKER WITH WHEELS AND SEAT, WHEELCHAIR AND LEG BRACE; PT DOES NOT KNOW THE NAME OF HER MEDICAL EQUIPMENT PROVIDER. PT HAS [facility]. CM DISCUSSED AVAILABILITY OF HOME HEALTH, REHAB SERVICES AND MEDICAL EQUIPMENT. PT INITIALLY DENIED DISCHARGE NEEDS, REPORTS HER FAMILY WILL PICK HER UP FOR DISCHARGE HOME. IMPORTANT MESSAGE FROM MEDICARE PROVIDED AND EXPLAINED. CM DISCUSSED PT'S WEAKNESS AND MOST RECENT THERAPY NOTES. CM EXPRESSED CONCERN OF PT GOING HOME AND HIGHLY RECOMMENDED REHAB. PT AND FAMILY AGREED THAT PT NEEDS REHAB, REQUESTED [facility] PT HAS BEEN THERE IN THE PAST. CHOICE SIGNED. CM CALLED [facility] AT [phone], SPOKE TO GLENYS AND PROVIDED REFERRAL INFORMATION. CM CALLED [facility], LEFT MESSAGE WITH REFERAL INFORMATION AT [phone]. CM NOTIFIED BOTH [facility] AND [facility] THAT PT IS READY TO DISCHARGE TODAY. CM FAXED REFERRAL TO [facility] AT [phone] AND [facility] AT [phone]. CM NOTIFIED ALIRIO BONNER. CM WAITING ADMISSION DETERMINATION FROM [facility] WELL INSURANCE AUTHORIZATION FOR REHAB SERVICES. Advanced Manufacturing Technician: Chaitanya Anand DCPIA - Discharge Planning Initial Assessment Updated by [email or web address]: Chaitanya Anand on 06/06/19 3:08 pm * Is the patient Alert and Oriented? Yes * How many steps to enter\exit or inside your home? NONE * PCP DR. MASON KERR * Pharmacy [facility] * Preadmission Environment Home with Family * ADLs Independent * Equipment Glucometer Other Oxygen Power Chair or Electric Scooter Rolling Walker Wheelchair * Other Equipment ROLLATOR WALKER WALKING BOOT / [facility] AND PORTABLE OXYGEN, UNKNOWN PROVIDER * List name and contact numbers for known caregivers / representatives who currently or will assist patient after discharge: AMINA ARIAS, SISTER, JENNIFER DOZIER, MOTHER, * Verbal permission to speak to the caregivers and representatives has been obtained from the patient. Yes * Community resources currently utilized Home Health * Please name any agencies selected above. [facility] * Additional services required to return to the preadmission environment? Yes * Can the patient safely return to the preadmission environment? Yes * Has this patient been hospitalized within the prior 30 days at any hospital? Yes External Providers External Provider: [facility] Next Contact Date: 06/07/2019 Service Request Date: Service Type: Resolution: Reviewer: Comments: Coverage Notice Reviewer: [id number] Anand Notice Issued Date-Time: 06/06/2019 12:45 Notice Type: Patient Choice Letter Notice Delivered To: Family Member Relationship to Patient: Wire Stitcher Operator Name: AMINA ARIAS Delivery Method: HAND - Hand Delivered Gail Days: Prior Verbal Notification: Recipient Understood Notice: Yes Recipient Signature: Yes Med Rec Note Co-signed by Attending: Coverage Notice Comment: [facility] Reviewer: [id number] Anand Notice Issued Date-Time: 06/06/2019 12:45 Notice Type: IM Discharge Notice Notice Delivered To: Family Member Relationship to Patient: Wire Stitcher Operator Name: AMINA ARIAS Delivery Method: HAND - Hand Delivered Gail Days: Prior Verbal Notification: Recipient Understood Notice: Yes Recipient Signature: Yes Med Rec Note Co-signed by Attending: Coverage Notice Comment: Last DP export: 06/07/19 7:58 a Patient Name: ANGIE LOPEZ Page 93640 at 0831 All edits/amendments must be made on the electronic document DICTATION DATE: 06/08/19829 HAIRSPRING INSPECTOR: BORA 06/08/19829 RPT#: [id number] [place] DATE: STATUS: ADM IN [facility] [address] [place] [address] END OF REPORT
--- NOTE | 2019-06-08 09:07 | NUR ---
OT NOTE: PT DOING WELL TODAY. FEEDING WITH SET UP OF TRAY; ABLE TO WASH HANDS, FACE, AND ARMS WITH SET UP; COMBED HAIR WITH SET UP; MIN ASSIST WITH EXT TIME TO AYDEN SHOES. SIT TO STAND WITH MIN ASSIST WITH USE OF WALKER; BED MOB WITH SPV; AMB APPROX 25 FT WITH RW AND MIN ASSIST. BALANCE MUCH IMPROVE TODAY. NO LOB DURING AMB. NEDA ALBERTS, OTR/L
--- NOTE | 2019-06-08 13:20 | NUR ---
REPORT GIVEN TO CAR[place] AT [facility]. DC PAPERWORK GONE OVER AND SIGNED WITH PT. PIV REMOVED. CATH TIP FULLY INTACT. ALL VALUBLES REMOVED FROM ROOM.
--- NOTE | 2019-06-08 13:23 | NUR ---
I HAVE REVIEWED THIS PATIENT AND I CONCUR WITH THE SHIFT ASSESSMENT COMPLETED BY THE CAP BLOCKER TODAY THIS SHIFT
--- NOTE | 2019-06-08 13:39 | MORECARE ---
CASE MANAGEMENT DISCHARGE SUMMARY PATIENT: ANGIE LOPEZ MANNY UNIT: [id number] ADM DATE: 06/02/19 AGE: 63 : 59 SEX: F ROOM/BED: D.7369 AUTHOR: ANA,DOC PHYSICIAN: REFERRING PHYSICIAN: GRISEL SKINNER DO DATE OF SERVICE: 06/08/19 Discharge Plan Patient Name: ANGIE LOPEZ Facility: [facility]:[place] : 1955 Planned Disposition: Custodial Facility Anticipated Discharge Date: 06/08/19 Discharge Date: Expected LOS: 6 Initial Reviewer: [id number] Initial Review Date: 06/06/2019 Generated: 06/08/19 2:38 pm Comments DCP- Discharge Planning Updated by [id number]: Chaitanya Anand on 06/08/19 7:[address] Patient Name: ANGIE LOPEZ Encounter No: [id number] : 1955 Primary Insurance: [employer] CHOICE PPO MCR ADVANT Anticipated DC Date: 06-07-2019 Planned Disposition: Custodial Facility External Planned Provider: [facility], MEDICARE REHAB BED Discharge Planning Comments: CM FAXED REFERRAL UPDATE TO [facility] AT [phone]. CM WAITING ADMISSION DETERMINATION FROM [facility] WELL INSURANCE AUTHORIZATION FOR REHAB SERVICES. Infrastructure Developer: Chaitanya Anand DCP- Discharge Planning Updated by [email or web address]: Chaitanya Anand on 06/07/19 7:[address] Patient Name: ANGIE LOPEZ Encounter No: [id number] : 1955 Primary Insurance: [employer] CHOICE PPO MCR ADVANT Anticipated DC Date: 06-07-2019 Planned Disposition: Custodial Facility External Planned Provider: [facility], MEDICARE REHAB BED Discharge Planning Comments: CM FAXED REFERRAL UPDATE TO [facility] AT [phone]. [facility] TO PERSONALLY ASSESS PT THIS MORNING AT HOSPITAL. CM WAITING ADMISSION DETERMINATION FROM [facility] WELL INSURANCE AUTHORIZATION FOR REHAB SERVICES. Infrastructure Developer: Chaitanya Anand DCP- Discharge Planning Updated by [email or web address]: Chaitanya Anand on 06/06/19 2:[address] Patient Name: ANGIE LOPEZ Admission Status: ER Accout number: [id number] Admission Date: 06-02-2019 : 1955 Admission Diagnosis: Attending: GRISEL SKINNER Current LOS: 4 Anticipated DC Date: 06-07-2019 Planned Disposition: Custodial Facility Primary Insurance: [employer] PPO MCR ADVANT PLANNED EXTERNAL PROVIDER: [facility], MEDICARE REHAB BED Discharge Planning Comments: CM RECEIVED DISCHARGE ORDER. CM MET WITH PT IN ROOM TO DISCUSS DISCHARGE PLANNING AND NEEDS.ANGIE LOPEZ provided verbal consent to discuss current and ongoing needs with/in the presence of: HER MOTHER AND SISTER. PT REPORTS LIVING AT HOME INDEPENDENTLY AND ALONE IN HER APARMENT, BUT HAS BEEN STAYING WITH HER GRANDSON AND GRANDDAUGHTER WHO HAVE BEEN ASSISTING WITH CARE IF NEEDED. PT HAS HOME AND PORTABLE OXYGEN, GLUCOMETER, POWER CHAIR, WALKER WITH WHEELS AND SEAT, WHEELCHAIR AND LEG BRACE; PT DOES NOT KNOW THE NAME OF HER MEDICAL EQUIPMENT PROVIDER. PT HAS [facility]. CM DISCUSSED AVAILABILITY OF HOME HEALTH, REHAB SERVICES AND MEDICAL EQUIPMENT. PT INITIALLY DENIED DISCHARGE NEEDS, REPORTS HER FAMILY WILL PICK HER UP FOR DISCHARGE HOME. IMPORTANT MESSAGE FROM MEDICARE PROVIDED AND EXPLAINED. CM DISCUSSED PT'S WEAKNESS AND MOST RECENT THERAPY NOTES. CM EXPRESSED CONCERN OF PT GOING HOME AND HIGHLY RECOMMENDED REHAB. PT AND FAMILY AGREED THAT PT NEEDS REHAB, REQUESTED [facility] PT HAS BEEN THERE IN THE PAST. CHOICE SIGNED. CM CALLED [facility] AT [phone], SPOKE TO GLENYS AND PROVIDED REFERRAL INFORMATION. CM CALLED [facility], LEFT MESSAGE WITH REFERAL INFORMATION AT [phone]. CM NOTIFIED BOTH [facility] AND [facility] THAT PT IS READY TO DISCHARGE TODAY. CM FAXED REFERRAL TO [facility] AT [phone] AND [facility] AT [phone]. CM NOTIFIED ALIRIO BONNER. CM WAITING ADMISSION DETERMINATION FROM [facility] WELL INSURANCE AUTHORIZATION FOR REHAB SERVICES. Infrastructure Developer: Chaitanya Anand DCPIA - Discharge Planning Initial Assessment Updated by [id number]: Chaitanya Anand on 06/06/19 3:08 pm * Is the patient Alert and Oriented? Yes * How many steps to enter\exit or inside your home? NONE * PCP DR. MASON KERR * Pharmacy [facility] * Preadmission Environment Home with Family * ADLs Independent * Equipment Glucometer Other Oxygen Power Chair or Electric Scooter Rolling Walker Wheelchair * Other Equipment ROLLATOR WALKER WALKING BOOT / [facility] HOME AND PORTABLE OXYGEN, UNKNOWN PROVIDER * List name and contact numbers for known caregivers / representatives who currently or will assist patient after discharge: AMINA ARIAS, SISTER, JENNIFER DOZIER, MOTHER, * Verbal permission to speak to the caregivers and representatives has been obtained from the patient. Yes * Community resources currently utilized Home Health * Please name any agencies selected above. [facility] * Additional services required to return to the preadmission environment? Yes * Can the patient safely return to the preadmission environment? Yes * Has this patient been hospitalized within the prior 30 days at any hospital? Yes Coverage Notice Reviewer: [id number] Harvey Anand Notice Issued Date-Time: 06/06/2019 12:45 Notice Type: Patient Choice Letter Notice Delivered To: Family Member Relationship to Patient: Ballistic Technician Name: AMINA ARIAS Delivery Method: HAND - Hand Delivered Gail Days: Prior Verbal Notification: Recipient Understood Notice: Yes Recipient Signature: Yes Med Rec Note Co-signed by Attending: Coverage Notice Comment: [facility] Reviewer: [id number] Harvey Anand Notice Issued Date-Time: 06/06/2019 12:45 Notice Type: IM Discharge Notice Notice Delivered To: Family Member Relationship to Patient: Ballistic Technician Name: AMINA ARIAS Delivery Method: HAND - Hand Delivered Gail Days: Prior Verbal Notification: Recipient Understood Notice: Yes Recipient Signature: Yes Med Rec Note Co-signed by Attending: Coverage Notice Comment: Last DP export: 06/08/19 7:31 a Patient Name: ANGIE LOPEZ Page 49518 at 1339 All edits/amendments must be made on the electronic document DICTATION DATE: 06/08/191337 ALUMINUM SHEET CUTTER: BORA 06/08/191337 RPT#: [id number] DC DATE: STATUS: ADM IN [facility] [address] [place] [address] END OF REPORT
--- NOTE | 2019-06-08 13:48 | MORECARE ---
CASE MANAGEMENT DISCHARGE SUMMARY PATIENT: ANGIE LOPEZ MANNY UNIT: [id number] ADM DATE: 06/02/19 AGE: 63 : [birth year] SEX: F ROOM/BED: D.1309 AUTHOR: DAMARIS PEREZ PHYSICIAN: REFERRING PHYSICIAN: GRISEL SKINNER DO DATE OF SERVICE: 06/08/19 Discharge Plan Patient Name: ANGIE LOPEZ Facility: [facility]:[place] : 1955 Planned Disposition: [facility] Facility Anticipated Discharge Date: 06/08/19 Discharge Date: Expected LOS: 6 Initial Reviewer: [id number] Initial Review Date: 06/06/2019 Generated: 06/08/19 2:47 pm Comments DCP- Discharge Planning Updated by [email or web address]: Chaitanya Anand on 06/08/19 12:[address] Patient Name: ANGIE LOPEZ Encounter No: [id number] : 1955 Primary Insurance: [employer] CHOICE PPO MCR ADVANT Anticipated DC Date: 06-08-2019 Planned Disposition: [facility] Facility External Planned Provider: [facility], MEDICARE REHAB BED Discharge Planning Comments: CM RECEIVED CALL DOTTIE OF [facility] AT [phone], [facility] WILL ACCEPT PT TODAY. CM RECEIVED CALL FROM [facility] OF [facility], , AUTHORIZATION RECEIVED LATE YESTERDAY, SHE WILL CALL PT'S SISTER TO ASSIST WITH PAPERWORK AND WILL ARRANGE TRANSPORTATION TODAY FOR PLANT MANAGER. PT NOTIFIED AND IN AGREEMENT WITH DISCHARGE TO [facility] TODAY FOR REHAB. CM NOTIFIED DR. SHIN AND ALIRIO BONNER IN IDT MEETING THIS MORNING. DISCHARGE ORDERS RECEIVED. CM FAXED DISCHARGE INFORMATION TO [facility] AT [phone]. NURSE REPORT TO BE CALLED TO [facility] AT [phone]. [facility] TO ARRANGE VAN PLANT MANAGER. Mineral Technologist: Chaitanya Anand DCP- Discharge Planning Updated by [id number]: Chaitanya Anand on 06/08/19 7:[address] Patient Name: ANGIE LOPEZ Encounter No: [id number] : 1955 Primary Insurance: HUMANA CHOICE PPO MCR ADVANT Anticipated DC Date: 06-07-2019 Planned Disposition: [facility] Facility External Planned Provider: [facility], MEDICARE REHAB BED Discharge Planning Comments: CM FAXED REFERRAL UPDATE TO [facility] OF [facility] AT [phone]. CM WAITING ADMISSION DETERMINATION FROM [facility] WELL INSURANCE AUTHORIZATION FOR REHAB SERVICES. Mineral Technologist: Chaitanya Anand DCP- Discharge Planning Updated by [email or web address]: Chaitanya Anand on 06/07/19 7:[address] Patient Name: ANGIE LOPEZ Encounter No: [id number] : 1955 Primary Insurance: HU[employer] CHOICE PPO MCR ADVANT Anticipated DC Date: 06-07-2019 Planned Disposition: [facility] Facility External Planned Provider: [facility], MEDICARE REHAB BED Discharge Planning Comments: CM FAXED REFERRAL UPDATE TO DOTTIE OF [facility] AT [phone]. [facility] OF [facility] TO PERSONALLY ASSESS PT THIS MORNING AT HOSPITAL. CM WAITING ADMISSION DETERMINATION FROM [facility] WELL INSURANCE AUTHORIZATION FOR REHAB SERVICES. Mineral Technologist: Chaitanya Anand DCP- Discharge Planning Updated by [email or web address]: Chaitanya Anand on 06/06/19 2:[address] Patient Name: ANGIE LOPEZ Admission Status: ER Accout number: [id number] Admission Date: 06-02-2019 : 1955 Admission Diagnosis: Attending: GRISEL SKINNER Current LOS: 4 Anticipated DC Date: 06-07-2019 Planned Disposition: [facility] Facility Primary Insurance: HUMA[employer] CHOICE PPO MCR ADVANT PLANNED EXTERNAL PROVIDER: [facility], MEDICARE REHAB BED Discharge Planning Comments: CM RECEIVED DISCHARGE ORDER. CM MET WITH PT IN ROOM TO DISCUSS DISCHARGE PLANNING AND NEEDS.ANGIE LOPEZ provided verbal consent to discuss current and ongoing needs with/in the presence of: HER MOTHER AND SISTER. PT REPORTS LIVING AT HOME INDEPENDENTLY AND ALONE IN HER APARMENT, BUT HAS BEEN STAYING WITH HER GRANDSON AND GRANDDAUGHTER WHO HAVE BEEN ASSISTING WITH CARE IF NEEDED. PT HAS HOME AND PORTABLE OXYGEN, GLUCOMETER, POWER CHAIR, WALKER WITH WHEELS AND SEAT, WHEELCHAIR AND LEG BRACE; PT DOES NOT KNOW THE NAME OF HER MEDICAL EQUIPMENT PROVIDER. PT HAS [facility]. CM DISCUSSED AVAILABILITY OF HOME HEALTH, REHAB SERVICES AND MEDICAL EQUIPMENT. PT INITIALLY DENIED DISCHARGE NEEDS, REPORTS HER FAMILY WILL PICK HER UP FOR DISCHARGE HOME. IMPORTANT MESSAGE FROM MEDICARE PROVIDED AND EXPLAINED. CM DISCUSSED PT'S WEAKNESS AND MOST RECENT THERAPY NOTES. CM EXPRESSED CONCERN OF PT GOING HOME AND HIGHLY RECOMMENDED REHAB. PT AND FAMILY AGREED THAT PT NEEDS REHAB, REQUESTED [facility] PT HAS BEEN THERE IN THE PAST. CHOICE SIGNED. CM CALLED [facility] AT [phone], SPOKE TO GLENYS AND PROVIDED REFERRAL INFORMATION. CM CALLED [facility], LEFT MESSAGE WITH REFERAL INFORMATION AT [phone]. CM NOTIFIED BOTH GLENYS AND DOTTIE THAT PT IS READY TO DISCHARGE TODAY. CM FAXED REFERRAL TO [facility] AT [phone] AND [facility] AT [phone]. CM NOTIFIED ALIRIO BONNER. CM WAITING ADMISSION DETERMINATION FROM [facility] WELL INSURANCE AUTHORIZATION FOR REHAB SERVICES. Mineral Technologist: Chaitanya Anand DCPIA - Discharge Planning Initial Assessment Updated by [id number]: Chaitanya Anand on 06/06/19 3:08 pm * Is the patient Alert and Oriented? Yes * How many steps to enter\exit or inside your home? NONE * PCP DR. MASON KERR * Pharmacy [facility] * Preadmission Environment Home with Family * ADLs Independent * Equipment Glucometer Other Oxygen Power Chair or Electric Scooter Rolling Walker Wheelchair * Other Equipment ROLLATOR WALKER WALKING BOOT / BRACE HOME AND PORTABLE OXYGEN, UNKNOWN PROVIDER * List name and contact numbers for known caregivers / representatives who currently or will assist patient after discharge: AMINA ARIAS, SISTER, JENNIFER DOZIER, MOTHER, * Verbal permission to speak to the caregivers and representatives has been obtained from the patient. Yes * Community resources currently utilized Home Health * Please name any agencies selected above. [facility] * Additional services required to return to the preadmission environment? Yes * Can the patient safely return to the preadmission environment? Yes * Has this patient been hospitalized within the prior 30 days at any hospital? Yes Coverage Notice Reviewer: [id number] - Chaitanya Anand Notice Issued Date-Time: 06/06/2019 12:45 Notice Type: Patient Choice Letter Notice Delivered To: Family Member Relationship to Patient: Sister Global Regulatory Affairs Manager Name: AMINA ARIAS Delivery Method: HAND - Hand Delivered Gail Days: Prior Verbal Notification: Recipient Understood Notice: Yes Recipient Signature: Yes Med Rec Note Co-signed by Attending: Coverage Notice Comment: CHAY ODONNELL Reviewer: [id number] Harvey Anand Notice Issued Date-Time: 06/06/2019 12:45 Notice Type: IM Discharge Notice Notice Delivered To: Family Member Relationship to Patient: Sister Global Regulatory Affairs Manager Name: AMINA ARIAS Delivery Method: HAND - Hand Delivered Gail Days: Prior Verbal Notification: Recipient Understood Notice: Yes Recipient Signature: Yes Med Rec Note Co-signed by Attending: Coverage Notice Comment: Last DP export: 06/08/19 12:39 p Patient Name: ANGIE LOPEZ Page [id number] at 1348 All edits/amendments must be made on the electronic document DICTATION DATE: 06/08/19 1347 AIRLINE OPERATIONS AGENT: BORA 06/08/19 1347 RPT#: [id number] DC DATE: STATUS: ADM IN [facility] [address] [place] [address] END OF REPORT
--- NOTE | 2019-06-08 15:06 | NUR ---
OT NOTE: PT COMPLETED ADL MOB WITH RW WITH MIN A/CGA. PT COMPLETED BED MOB WITH SBA. PT COMPLETED UB HYGIENE TASKS WITH SETUP. THANK YOU, ZACK HOUSTON
== END 2019-06-08 14:47 | DRG 194 ==
LOC: D.ER 10:00 → D.M2 13:08
PROVIDERS: Family Medicine; Internal Medicine; ADMIT Family Medicine; ATTEND Family Medicine
DX: J18.9 Pneumonia, unspecified organism (principal); N17.9 Acute kidney failure, unspecified; J44.0 Chronic obstructive pulmonary disease with (acute) lower respiratory infection; J96.11 Chronic respiratory failure with hypoxia; E87.0 Hyperosmolality and hypernatremia; N18.4 Chronic kidney disease, stage 4 (severe); I13.2 Hypertensive heart and chronic kidney disease with heart failure and with stage 5 chronic kidney disease, or end stage renal disease; N18.5 Chronic kidney disease, stage 5; Y95 Nosocomial condition; E11.22 Type 2 diabetes mellitus with diabetic chronic kidney disease; E11.65 Type 2 diabetes mellitus with hyperglycemia; K20.9 Esophagitis, unspecified; D63.1 Anemia in chronic kidney disease; E78.5 Hyperlipidemia, unspecified; I25.10 Atherosclerotic heart disease of native coronary artery without angina pectoris; E11.42 Type 2 diabetes mellitus with diabetic polyneuropathy; E87.5 Hyperkalemia; I50.9 Heart failure, unspecified; E11.319 Type 2 diabetes mellitus with unspecified diabetic retinopathy without macular edema; Z79.4 Long term (current) use of insulin; E66.01 Morbid (severe) obesity due to excess calories; Z68.36 Body mass index [BMI] 36.0-36.9, adult; Z86.73 Personal history of transient ischemic attack (TIA), and cerebral infarction without residual deficits

== ENCOUNTER 2019-07-18 10:56 | Emergency (ER) | payer MEDICARE ==
[~2019-07-18] VITALS: Ht 157.5 cm; Wt 90.5 kg
[~2019-07-18 10:56] MED LIST changes: +NEURONTIN 400400 MG PO; +POTASSIUM CHLO10 ME1 PO
[2019-07-18 11:11] VITALS: Ht 157.5 cm; Wt 90.5 kg
[2019-07-18 11:44] LABS: BASOPHILS 0.2 % (0-2); EOSINOPHILS 2.8 % (0-7); HEMATOCRIT 29.8 % (36.0-48.0); HEMOGLOBIN 9.8 g/dL (12-16); LYMPHOCYTES 37.5 % (15-50); MCH 27.9 pg (26.0-34.0); MCHC 32.9 g/dL (31.0-37.0); MCV 84.9 fL (80.0-100.0); MEAN PLATELET VOLUME 9.7 fL (7.4-10.4); MONOCYTES 4.3 % (2-11); NEUTROPHILS 55.2 % (40-80); PLATELET COUNT 323 10x3/uL (130-400); RBC 3.51 10x6/uL (4.00-5.40); RDW 13.1 % (11.5-14.5); WBC 4.7 10x3/uL (4.8-10.8)
[2019-07-18 11:58] LABS: CALCIUM 8.2 mg/dL (8.5-10.1); CARBON DIOXIDE 21.1 mmol/L (21.0-32.0); CREATININE - SERUM 5.3 mg/dL (0.6-1.3); POTASSIUM - SERUM 5.1 mmol/L (3.5-5.1)
[2019-07-18 12:04] LABS: ALBUMIN 2.6 g/dL (3.4-5.0); BILIRUBIN - TOTAL 0.19 mg/dL (0.2-1.3); PROTEIN - SERUM 6.9 g/dL (6.4-8.2)
[2019-07-18 14:47] VITALS: BP 162/73
== END 2019-07-18 14:48 | disposition home or self-care (01) ==
LOC: D.ER 10:56
PROVIDERS: Family Medicine
DX: I12.0 Hypertensive chronic kidney disease with stage 5 chronic kidney disease or end stage renal disease (principal); N18.6 End stage renal disease; E11.22 Type 2 diabetes mellitus with diabetic chronic kidney disease; Z79.4 Long term (current) use of insulin; Z95.5 Presence of coronary angioplasty implant and graft; I25.2 Old myocardial infarction; I25.10 Atherosclerotic heart disease of native coronary artery without angina pectoris; R60.9 Edema, unspecified; R06.00 Dyspnea, unspecified; K21.9 Gastro-esophageal reflux disease without esophagitis

== ENCOUNTER 2019-08-24 12:26 | Outpatient (CLI) | payer MEDICARE ==
[~2019-08-24] VITALS: Ht 157.5 cm; Wt 91.4 kg
[2019-08-24 13:46] VITALS: Ht 157.5 cm; Wt 91.4 kg
== END 2019-08-24 14:45 ==
LOC: D.OPS 12:26
PROVIDERS: ATTEND Internal Medicine Hematology & Oncology
DX: D64.9 Anemia, unspecified (principal)

== ENCOUNTER 2019-08-29 06:00 | Day surgery (SDC) | payer MEDICARE ==
[2019-08-28 11:13] LABS: BASOPHILS 0.3 % (0-2); HEMATOCRIT 27.3 % (36.0-48.0); HEMOGLOBIN 8.7 g/dL (12-16); IMMATURE GRANULOCYTES 0.5 % (0-5); LYMPHOCYTES 27.4 % (15-50); MCH 27.4 pg (26.0-34.0); MCHC 31.9 g/dL (31.0-37.0); MCV 86.1 fL (80.0-100.0); MEAN PLATELET VOLUME 9.6 fL (7.4-10.4); MONOCYTES 5.8 % (2-11); PLATELET COUNT 369 10x3/uL (130-400); RBC 3.17 10x6/uL (4.00-5.40); RDW 13.2 % (11.5-14.5); WBC 7.6 10x3/uL (4.8-10.8)
[2019-08-28 11:19] LABS: ANION GAP 12.3 mmol/L (8-16); CALCIUM 9.2 mg/dL (8.5-10.1); CARBON DIOXIDE 30.2 mmol/L (21.0-32.0); CREATININE - SERUM 6.8 mg/dL (0.6-1.3); INR 0.91 (0.85-1.17); POTASSIUM - SERUM 4.5 mmol/L (3.5-5.1); PROTIME 12.3 SECONDS (11.6-15.0)
[~2019-08-29] VITALS: Ht 157.5 cm; Wt 91.2 kg
[2019-08-29] MEDS ORDERED: ROCALTROL0.25 MCG PO (06:10)
[2019-08-29] MEDS ORDERED: CYCLOBENZAPRINE5 MG (06:12)
[2019-08-29] MEDS ORDERED: CLARITIN 10 MG10 MG (06:12)
[2019-08-29] MEDS ORDERED: HYDRALAZINE HCL25 MG PO (06:13)
[2019-08-29] MEDS ORDERED: NEURONTIN 400400 MG PO (06:14)
[2019-08-29] MEDS ORDERED: METOPROLOL TART50 MG PO (06:14)
[2019-08-29] MEDS ORDERED: ZOFRAN4 MG PO (06:16)
[2019-08-29] MEDS ORDERED: SODIUM BICARBO650 MG PO (06:17)
[2019-08-29] MEDS ORDERED: ACETAMINOPHEN500 M1 PO (06:18)
[2019-08-29] MEDS ORDERED: VITAMIN D3 (06:19)
[2019-08-29 06:33] VITALS: BP 171/76; Ht 157.5 cm; Wt 91.2 kg
[2019-08-29] MEDS ORDERED: ULTRAM50 MG PO (10:59)
--- NOTE | 2019-08-29 12:36 | NUR ---
1204 RELEASED IN OWN WC
--- NOTE | 2019-08-31 17:55 | OP ---
PATIENT NAME: ANGIE LEES MEDICAL RECORD: [id number] :[birth year] LOCATION:D[facility] ADMISSION DATE: SURGEON: AVELINO HERNANDEZ MD DATE OF OPERATION: 08/29/2019 REFERRING PHYSICIAN: Sarah Rashid DO PREOPERATIVE DIAGNOSES: Chronic kidney disease V, diabetes, hypertension, coronary artery disease and chronic obstructive pulmonary disease. POSTOPERATIVE DIAGNOSES: Chronic kidney disease V, diabetes, hypertension, coronary artery disease and chronic obstructive pulmonary disease. OPERATION PERFORMED: Creation of a right brachiobasilic arteriovenous fistula. OPERATIVE FINDINGS: Very small veins. SURGEON: Avelino Hernandez MD ANESTHESIA: Regional nerve block plus MAC per PLANT GENERAL MANAGER. PREOPERATIVE NOTE: Dr. Rashid referred Ms. Lees for vascular access. She is a 63-year-old -[place] female with very small veins on her preop vessel mapping. She is brought to the OR with plans to either create an upper arm fistula in the right arm or possibly implant a graft. DESCRIPTION OF PROCEDURE: Under a regional block as well as MAC in supine position, the patient was prepped and draped in a sterile manner. A [place] drain was applied as a proximal venous tourniquet and nitroglycerin paste used topically. I examined her with Duplex ultrasound and found a marginally acceptable basilic vein, which was rather far medial from the brachial artery at the level of the antecubital space, but I opted to try to use this vessel to go ahead and create an autogenous fistula. I made a longitudinal incision directly over the vein and mobilized it from the lower humeral level to below the antecubital level. Numerous small tributaries were divided between Hemoclips. It was ligated with 3-0 Vicryl distally, transected and bevelled and flushed with heparinized saline and treated with topical papaverine and distended hydrostatically and then an atraumatic clamp applied proximally. The brachial artery was exposed laterally and I had hopes that I would be able to use the proximal radial artery for the origin of the fistula; however, the vein segment, which I had really would not reach that far distally without undue tension. The artery was controlled proximally in the ulnar and radial arteries controlled distally it was occluded. The artery was opened just above the bifurcation. The artery was flushed proximally and distally with heparinized saline and the vein was then anastomosed end of vein to side of artery with continuous running 7-0 Prolene. When completed and the occluding loops and clamps were released, excellent flow developed immediately in the new fistula and was preserved in the digital arteries as well. The wound was treated with an application of hemostatic powder and then gently rinsed with saline. Hemostasis additionally achieved with electrocautery. The wound was closed with interrupted inverted 3-0 Vicryl and then running intracuticular 4-0 Stratafix. The skin was sealed and further closed with Dermabond glue and dressed with Maxorb Ag, Tegaderm, and Cavilon skin prep. The OPERATIVE REPORT [id number] ANGIE LEES patient was awakened and returned to the outpatient department in stable condition. There was almost no blood loss during the procedure. Sponges, instruments, and needles were accounted for. No drain was used and no surgical specimen was submitted for histopathology. PLAN: The patient will go home today and follow up with me in my office next week. She is to leave the initial operative dressing intact and keep it dry. She will continue her same medications, diet and activities. We will schedule her now for return to the operating room in 3-6 weeks for revision of her fistula, which will include translocation of the basilic vein. TRANSINT:[id number] Voice Confirmation ID: [id number] DOCUMENT ID: [id number] AVELINO HERNANDEZ MD at 1756 CC: SARAH RASHID DO [id number] DICTATION DATE: 08/29/19 1112 FOUNDATION ASSISTANT: 08/29/19 1403 [facility] 08/29/19 [id number] [place] [address]
== END 2019-08-29 12:04 | disposition home or self-care (01) ==
LOC: D.OPS 06:00 → D.PAN 08:00 → D.OPS 08:00
PROVIDERS: Surgery; ATTEND Internal Medicine
DX: E11.22 Type 2 diabetes mellitus with diabetic chronic kidney disease (principal); I12.0 Hypertensive chronic kidney disease with stage 5 chronic kidney disease or end stage renal disease; N18.5 Chronic kidney disease, stage 5; I10 Essential (primary) hypertension; I25.10 Atherosclerotic heart disease of native coronary artery without angina pectoris; J44.9 Chronic obstructive pulmonary disease, unspecified; E87.5 Hyperkalemia; K21.9 Gastro-esophageal reflux disease without esophagitis; E78.5 Hyperlipidemia, unspecified

== ENCOUNTER 2019-12-22 05:42 | Day surgery (SDC) | payer MEDICARE ==
[~2019-12-22] VITALS: Ht 157.5 cm; Wt 90.7 kg
--- NOTE | ~2019-12-22 | OP ---
PATIENT NAME: ANGIE LEES MEDICAL RECORD: [id number] :[birth year] LOCATION:[facility], [facility] ADMISSION DATE: SURGEON: AVELINO HERNANDEZ MD DATE OF OPERATION: 12/22/2019 REFERRED BY: Sarah Rashid DO PREOPERATIVE DIAGNOSES: End-stage renal disease and dependence on hemodialysis and mechanical complication of surgically created arteriovenous fistula, right upper extremity. POSTOPERATIVE DIAGNOSES: End-stage renal disease and dependence on hemodialysis and mechanical complication of surgically created arteriovenous fistula, right upper extremity. PREOPERATIVE NOTE: Ms. Lees is a 63-year-old diabetic, hypertensive female from [place] with end-stage renal disease, presently dialyzing with a catheter. She has a right brachial basilic AV fistula, which was created as an intended as a first stage towards creation of a translocated basilic fistula. The operation was done back in August and her return to the operating room has been delayed due to the COVID-19 crisis. So she has returned to the operating room today 4 months later, so she is no longer in the global period from that operation in August. DESCRIPTION OF PROCEDURE: Under general anesthesia, she was prepped and draped in sterile manner. I examined her with ultrasound and noted the basilic vein to be of adequate caliber having dilated up to about a centimeter in diameter from the antecubital space to the axilla. I made an incision along the course of the vein on the medial aspect of the arm and mobilized the vein from the surrounding structures, ligated tributaries between Hemoclips and Vicryl ties. Hemostasis was obtained with electrocautery and also use of 20 mcg of DDAVP intravenously per anesthesia. The wound was irrigated with Ancef/gentamicin solution and infiltrated with 0.25% Marcaine with epinephrine. The wound was closed, approximating subcutaneous tissues deep to the vein and then closing the skin directly over the vein with running intracuticular 4-0 Stratafix. The incision was sealed with Dermabond glue and dressed with Maxorb Ag, Tegaderm, and Cavilon skin prep and the patient then awakened and taken to the recovery room. Blood loss during the operation was about 25 cc, was unreplaced. Sponges, instruments, and needles were accounted for. No drain was used. I shall see this patient back in my office next week. She is given a prescription for [facility] 5/325 one p.o. every 4 hours p.r.n. pain. She is to continue her usual diabetic renal diet and renal dialysis schedule. Continue her same medications and keep her dressing dry and intact until she sees me in the office. TRANSINT:[id number] Voice Confirmation ID: [id number] DOCUMENT ID: [id number] cc: [facility] OPERATIVE REPORT [id number] ANGIE LEES JAMES MD CC: SARAH RASHID DO [id number] DICTATION DATE: 12/22/19 1032 RESEARCH GROUP DIRECTOR: 12/22/19 1638 [facility] [place] 12/22/19 [facility] [address] [place] [address]
[~2019-12-22 05:42] MED LIST changes: +ACETAMINOPHEN500 M1 PO; +CLARITIN 10 MG10 MG; +CYCLOBENZAPRINE5 MG; +HYDRALAZINE HCL25 MG PO; +ROCALTROL0.25 MCG PO; +SODIUM BICARBO650 MG PO; +VITAMIN D3
[2019-12-22 06:37] LABS: BASOPHILS 0.2 % (0-2); EOSINOPHILS 2.9 % (0-7); HEMATOCRIT 40.6 % (36.0-48.0); HEMOGLOBIN 12.9 g/dL (12-16); IMMATURE GRANULOCYTES 0.2 % (0-5); LYMPHOCYTES 30.5 % (15-50); MCH 28.7 pg (26.0-34.0); MCHC 31.8 g/dL (31.0-37.0); MCV 90.4 fL (80.0-100.0); MEAN PLATELET VOLUME 9.5 fL (7.4-10.4); MONOCYTES 6.8 % (2-11); NEUTROPHILS 59.4 % (40-80); RBC 4.49 10x6/uL (4.00-5.40); RDW 14.1 % (11.5-14.5); WBC 5.1 10x3/uL (4.8-10.8)
[2019-12-22 06:44] LABS: PLATELET COUNT 181 10x3/uL (130-400)
[2019-12-22 06:48] LABS: ANION GAP 11.7 mmol/L (8-16); CALCIUM 8.6 mg/dL (8.5-10.1); CARBON DIOXIDE 27.2 mmol/L (21.0-32.0); CREATININE - SERUM 4.9 mg/dL (0.6-1.3); POTASSIUM - SERUM 4.9 mmol/L (3.5-5.1); PROTIME 13.2 SECONDS (11.6-15.0)
[2019-12-22 07:26] VITALS: BP 135/71; Ht 157.5 cm; Wt 90.7 kg
--- NOTE | 2019-12-22 18:34 | NUR ---
1455-DISCHARGE CRITERIA MET. NO LONGER N/V. VSS. DRESSING WITHOUT ACTIVE BLEEDING. ABLE TO FEEL THRILL AND AUSCULATE BRUIT. STATION ENGINEER MAIN LINE HERE TO TRANSPORT HOME.
== END 2019-12-22 14:55 | disposition home or self-care (01) ==
LOC: D.OPS 05:42
PROVIDERS: ATTEND Surgery
DX: I12.0 Hypertensive chronic kidney disease with stage 5 chronic kidney disease or end stage renal disease (principal); E11.22 Type 2 diabetes mellitus with diabetic chronic kidney disease; N18.6 End stage renal disease; Z99.2 Dependence on renal dialysis; T82.590A Other mechanical complication of surgically created arteriovenous fistula, initial encounter; I25.10 Atherosclerotic heart disease of native coronary artery without angina pectoris

== ENCOUNTER 2020-04-10 09:00 | Emergency (ER) | payer MEDICARE ==
[~2020-04-10] VITALS: Ht 157.5 cm; Wt 77.3 kg
[2020-04-10 09:07] VITALS: Ht 157.5 cm; Wt 77.3 kg
[2020-04-10] MEDS ORDERED: BUMEX2 MG PO ×2 (09:12→09:13)
[2020-04-10] MEDS ORDERED: EMLA CREAM 30 G30 G1 (09:15)
[2020-04-10] MEDS ORDERED: BANOPHEN25 MG PO (09:15)
[2020-04-10] MEDS ORDERED: GLUCOTROL XL 5 M5 MG PO (09:16)
[2020-04-10] MEDS ORDERED: HYDRALAZINE HCL25 MG PO ×2 (09:18→09:19)
[2020-04-10] MEDS ORDERED: LEVSIN/ANASP0.125 MG PO (09:21)
[2020-04-10] MEDS ORDERED: MELATONIN 3 MG1 TAB PO (09:23)
[2020-04-10] MEDS ORDERED: MIRALAX17 GM PO (09:24)
[2020-04-10] MEDS ORDERED: HYDROCODON-ACE1 EAC7 PO (09:28)
[2020-04-10] MEDS ORDERED: RENA-VITE TABL0.8 MG PO (09:30)
[2020-04-10] MEDS ORDERED: RENVELA800 MG PO (09:32)
[2020-04-10] MEDS ORDERED: GAS-X180 MG PO (09:33)
[2020-04-10] MEDS ORDERED: XANAX0.5 MG PO (09:34)
[2020-04-10 10:14] LABS: BASOPHILS 0.1 % (0-2); HEMATOCRIT 35.1 % (36.0-48.0); HEMOGLOBIN 10.8 g/dL (12-16); IMMATURE GRANULOCYTES 0.2 % (0-5); LYMPHOCYTES 12.6 % (15-50); MCH 31.2 pg (26.0-34.0); MCHC 30.8 g/dL (31.0-37.0); MCV 101.4 fL (80.0-100.0); MONOCYTES 6.4 % (2-11); NEUTROPHILS 79.7 % (40-80); RBC 3.46 10x6/uL (4.00-5.40); RDW 15.1 % (11.5-14.5); WBC 8.2 10x3/uL (4.8-10.8)
[2020-04-10 10:15] LABS: PLATELET COUNT 220 10x3/uL (130-400)
[2020-04-10 10:23] LABS: ANION GAP 10.5 mmol/L (8-16); CARBON DIOXIDE 29.1 mmol/L (21.0-32.0); CREATININE - SERUM 5.1 mg/dL (0.6-1.3); POTASSIUM - SERUM 4.6 mmol/L (3.5-5.1)
[2020-04-10 10:29] LABS: ALBUMIN 2.8 g/dL (3.4-5.0); BILIRUBIN - TOTAL 0.26 mg/dL (0.2-1.3)
[2020-04-10 12:00] LABS: BILIRUBIN NEGATIVE (NEGATIVE); KETONE NEGATIVE (NEGATIVE); NITRITE NEGATIVE (NEGATIVE); UROBILINOGEN NORMAL (NORMAL)
[2020-04-10 12:02] LABS: WHITE CELLS - URINE 0-5 /hpf (0-5)
[2020-04-10 12:03] LABS: BACTERIA FEW /hpf (NONE SEEN); EPITHELIAL CELLS 0-5 /hpf (0-5)
[2020-04-10 15:00] VITALS: BP 137/74
== END 2020-04-10 15:00 | disposition home or self-care (01) ==
LOC: D.ER 09:00
PROVIDERS: Emergency Medicine
DX: E11.22 Type 2 diabetes mellitus with diabetic chronic kidney disease (principal); E11.65 Type 2 diabetes mellitus with hyperglycemia; I12.0 Hypertensive chronic kidney disease with stage 5 chronic kidney disease or end stage renal disease; N18.6 End stage renal disease; I25.10 Atherosclerotic heart disease of native coronary artery without angina pectoris; Z86.73 Personal history of transient ischemic attack (TIA), and cerebral infarction without residual deficits; E11.40 Type 2 diabetes mellitus with diabetic neuropathy, unspecified; I25.2 Old myocardial infarction; K21.9 Gastro-esophageal reflux disease without esophagitis; Z79.84 Long term (current) use of oral hypoglycemic drugs

== ENCOUNTER 2020-10-21 07:21 | Outpatient (CLI) | payer MEDICARE, MEDICAID ==
--- NOTE | 2020-10-18 14:29 | NUR ---
CONFIRMED WITH PT COORDINATOR (ANNETTE) AT PT RESIDENCE THAT PT NEEDS TO BE NPO AFTER MIDNIGHT WEDNESDAY NIGHT, PT SHOULD HAVE ALREADY STOPPED ASA AND PT WILL NEED TO BE PRE-MEDICATED DUE TO ALLERGIES. SHE VERBALIZED UNDERSTANDING.
--- NOTE | 2020-10-18 14:31 | NUR ---
SPOKE WITH HARRY AT DIALYSIS- SHE WILL SEND OVER ORDERS TO NURSING FACILITY FOR PT TO BE PRE-MEDICATED PRIOR TO WEDNESDAY'S PROCEDURE.
[~2020-10-21] VITALS: Ht 157.5 cm; Wt 88.6 kg
[~2020-10-21 07:21] MED LIST changes: +BANOPHEN25 MG PO; +BUMEX2 MG PO; +EMLA CREAM 30 G30 G1; +GAS-X180 MG PO; +GLUCOTROL XL 5 M5 MG PO; +HYDROCODON-ACE1 EAC7 PO; +LEVSIN/ANASP0.125 MG PO; +MELATONIN 3 MG1 TAB PO; +RENA-VITE TABL0.8 MG PO; +RENVELA800 MG PO; +XANAX0.5 MG PO
[2020-10-21 07:59] LABS: BASOPHILS 0 % (0-2); EOSINOPHILS 0 % (0-7); HEMATOCRIT 32.9 % (36.0-48.0); HEMOGLOBIN 10.8 g/dL (12-16); IMMATURE GRANULOCYTES 0.3 % (0-5); LYMPHOCYTE ABS# 0.62 10x3/uL (1.18-3.74); LYMPHOCYTES 8.3 % (15-50); MCH 31.2 pg (26.0-34.0); MCHC 32.8 g/dL (31.0-37.0); MCV 95.1 fL (80.0-100.0); MEAN PLATELET VOLUME 9.2 fL (7.4-10.4); MONOCYTES 0.4 % (2-11); NEUTROPHIL ABS# 6.82 10x3/uL (1.56-6.13); PLATELET COUNT 248 10x3/uL (130-400); RBC 3.46 10x6/uL (4.00-5.40); RDW 12.9 % (11.5-14.5); WBC 7.5 10x3/uL (4.8-10.8)
[2020-10-21 08:07] LABS: APTT 29.1 SECONDS (22.8-39.4); INR 1.07 (0.85-1.17); PROTIME 12.9 SECONDS (11.6-15.0)
[2020-10-21 08:14] LABS: ANION GAP 16.3 mmol/L (8-16); CALCIUM 10.2 mg/dL (8.5-10.1); CARBON DIOXIDE 25.2 mmol/L (21.0-32.0); CREATININE - SERUM 8.3 mg/dL (0.6-1.3)
[2020-10-21 08:17] LABS: POTASSIUM - SERUM 6.5 mmol/L (3.5-5.1)
--- NOTE | 2020-10-21 08:51 | NUR ---
PROCEDURE CANCELED PER CASANDRA DIETZ [employer] AND [employer] TURBINES ASSEMBLER NOTIFIED OF CRITICALLY HIGH POTASSIUM 6.5. WILL DIALIZE TODAY AND RESCHEDULE PROCEDURE FOR WEDNESDAY
[2020-10-21 09:51] VITALS: BP 134/80; Ht 157.5 cm; Wt 88.6 kg
--- NOTE | 2020-10-21 13:54 | NUR ---
1340 ASSISSTED WITH DRESSING 1355 [facility] SERVED.
--- NOTE | 2020-10-21 14:26 | NUR ---
1415 CHAY HERE, TO VAN VIA HER OWN WC. PT. TOLD PROCEDURE WILL BE RESCHEDULED FOR WEDNESDAY, SAME TIME.
== END 2020-10-21 14:15 | disposition home or self-care (01) ==
LOC: D.RAD 07:21
PROVIDERS: Specialist; ATTEND Internal Medicine Nephrology
DX: R60.9 Edema, unspecified (principal); I10 Essential (primary) hypertension; N18.6 End stage renal disease; Z99.2 Dependence on renal dialysis; T85.898A Other specified complication of other internal prosthetic devices, implants and grafts, initial encounter

== ENCOUNTER 2020-10-30 07:23 | Day surgery (SDC) | payer MEDICARE, MEDICAID ==
--- NOTE | 2020-10-29 10:17 | NUR ---
SPOKE WITH DEBBI AT NURSING FACILITY SHE CONFIRMED: NPO: AFTER MIDNIGH PRE-MEDICATED: PRENISONE TONIGHT AND BENADRYL IN THE AM ASA: STOPPED 5 DAYS AGO DIALYSIS: TODAY ARRIVAL TIME: 0700
[~2020-10-30] VITALS: Ht 157.5 cm; Wt 86.4 kg
[2020-10-30 07:59] LABS: BASOPHILS 0 % (0-2); EOSINOPHILS 0 % (0-7); HEMOGLOBIN 10.8 g/dL (12-16); IMMATURE GRANULOCYTES 0.4 % (0-5); LYMPHOCYTE ABS# 0.76 10x3/uL (1.18-3.74); LYMPHOCYTES 10.2 % (15-50); MCH 31.8 pg (26.0-34.0); MCHC 33.8 g/dL (31.0-37.0); MCV 94.1 fL (80.0-100.0); MONOCYTES 0.4 % (2-11); NEUTROPHIL ABS# 6.62 10x3/uL (1.56-6.13); PLATELET COUNT 287 10x3/uL (130-400); RDW 13.1 % (11.5-14.5); WBC 7.4 10x3/uL (4.8-10.8)
[2020-10-30 08:12] LABS: ANION GAP 14.6 mmol/L (8-16); CALCIUM 9.4 mg/dL (8.5-10.1); CARBON DIOXIDE 24.9 mmol/L (21.0-32.0); CREATININE - SERUM 6.3 mg/dL (0.6-1.3); POTASSIUM - SERUM 4.5 mmol/L (3.5-5.1)
[2020-10-30 09:24] LABS: APTT 26.4 SECONDS (22.8-39.4)
[2020-10-30 09:53] VITALS: BP 189/87; Ht 157.5 cm; Wt 86.4 kg
[2020-10-30 11:02] LABS: INR 1.07 (0.85-1.17); PROTIME 12.9 SECONDS (11.6-15.0)
--- NOTE | 2020-10-30 12:13 | NUR ---
1205 IV DC'D WITH CATH INTACT, PROCEDURE WAS CANCELLED AND WILL BE RESCHEDULED AT A LATER DATE. DC INSTS. GIVEN, HAS AN ASSISSTANT WITH HER WHO IS DRESSING PT AND HAS CALLED THEIR RIDE.
--- NOTE | 2020-10-30 14:00 | NUR ---
1215 [facility] SERVED. PT'S IV HAS BEEN DC'D WITH CATH INTACT. DC INSTS. GIVEN, RELEASED IN WC
== END 2020-10-30 12:15 | disposition home or self-care (01) ==
LOC: D.SP 07:23 → EDSTATUS 10:00 → D.RAD 10:00 → D.SP 12:15 → D.RAD 11-01 10:00
PROVIDERS: Specialist; ATTEND Internal Medicine Nephrology
DX: R22.31 Localized swelling, mass and lump, right upper limb (principal); Z53.9 Procedure and treatment not carried out, unspecified reason

== ENCOUNTER 2020-11-15 05:42 | Day surgery (SDC) | payer MEDICARE, MEDICAID ==
--- NOTE | 2020-11-14 14:11 | NUR ---
CONFIRMED WITH [facility] ARRIVAL TIME, NPO STATUS, IMPORTANCE OF TAKING HEART AND BLOOD PRESSURE MEDS IN AM. SPOKE WITH RICKIE AT [facility]
[~2020-11-15] VITALS: Ht 157.5 cm; Wt 88.2 kg
--- NOTE | ~2020-11-15 | HEMODYNAMI ---
PATIENT:ANGIE LOPEZ MEDICAL RECORD: [id number] : 59 [id number] ADMISSION DATE: 11/15/20 Generatedon:110:17 Patient name: ANGIE LOPEZ Patient #: [id number] SSN: : Date of study: 11/15/2020 Page: Of Hemodynamic Procedure Report Patient Data Patient Demographics Procedure consent was obtained First Name: ANGIE Gender: Female Last Name: JOHN : 1955 [facility] Initial: MANNY Age: 64 year(s) Patient #: [id number] Race: Black Additional ID: [id number] Contact details Address: [address] [place] [address] [facility] State: [place] City: [facility] Zip code: [address] Past Medical History Allergies Allergen Reaction Date Comments Reported Iodine 03/30/2018 Iodine 10/30/2020 Statins 10/30/2020 Iodine 11/15/2020 Other 11/15/2020 atoristatin, allergy hydrocodone,shellfish,lutein,multivitamin Admission Admission Data Admission Date: 11/15/2020 Admission Time: 5:42 Height (in.): 62 BSA: 1.89 (m2) Height (cm.): 157.48 BMI: 35.48 (kg/m2) Weight (lbs.): 194 Weight (kg.): 88 Procedure Procedure Types Cath Procedure Peripheral Cath Diagnostic Procedure Venography IVC/SVC Superior Venacagram Procedure Description Procedure Date Procedure Date: 11/15/2020 Procedure Start Time: 8:56 Procedure Staff Name Function Eneida Lopez RT Mission Commander Kathrine Olivas RN Nurse Alvina Epps RN Nurse Manuel Cisneros RT Scrub Jerry Ohara CRNA Additional personnel Prince Mcduffie MD Performing Physician Procedure Data Cath Procedure Fluoroscopy Diagnostic fluoroscopy Total fluoroscopy Time: time: 32.8 min 32.8 min Diagnostic fluoroscopy Total fluoroscopy dose: 742 dose: 742 mGy mGy Contrast Material Contrast Material Type Amount (ml) Isovue 300 80 Diagnostic catheters Device Type Used For End Catheter Placement Merit Impress KA2 5Fr 65CM catheter ([id number]) Angiodynamics SOS OMNI 2 NON B 5FR 65CM catheter ([id number]) Procedure Medications Medication Administration Route Dosage Heparin Flush Bag added to field 2 bags (1000units/500ml NS) Lidocaine 1% added to field 20 Heparin Bolus I.V. 5000 units Heparin Bolus I.V. 2000 units Hemodynamics Rest BSA: 1.89 (m2) O2 Consumption: Estimated: 257.04 (ml/min) O2 Consumption indexed : Estimated:136 (ml/min/m) Pre Cath Intra NCS Post Cath Medications Time Medication Route Dose Verified Delivered Reason Notes Effect iveness by by 8:23:42 Heparin Flush added 2 Prince Morrison used for Bag to bags Froy wilder (1000units/500ml field MD HAWKINS NS) 8:23:59 Lidocaine 1% added 20ml Prince Morrison used for to vial Froy hui MD, MD 9:01:37 Heparin Bolus I.V. 5000 Prince Morrison used for units Froy wilder MD, MD 9:33:10 Heparin Bolus I.V. 2000 Prince Morrison used for units Froy wilder MD, MD Procedure Log Time Note 8:18:34 Patient Height : 62 inches 8:18:51 Patient Weight : 194 lbs 8:19:42 Use device set IR Diagnostic 8:19:53 [facility] .035 145 glide wire ([id number]) opened to sterile field. 8:19:55 Tegaderm 4 x 4 (1626W) opened to sterile field. 8:19:56 Sterile Angiographic Pack opened to sterile field. 8:19:59 Bag Decanter (2002S) opened to sterile field. 8:21:54 Time tracking: Regular hours (M-F 7:00 - 5:00) 8:22:17 A Indira Impress KA2 5Fr 65CM catheter ([id number]) was advanced over the wire and used for . 8:23:42 Heparin Flush Bag (1000units/500ml NS) 2 bags added to field was administered by Prince Mcduffie MD; used for procedure; Verbal order read back and verified. 8:23:59 Lidocaine 1% 20ml vial added to field was administered by Prince flores MD; used for procedure; Verbal order read back and verified. 8:35:30 Plan of Care:Hemodynamics will remain stable., Cardiac rhythm will remain stable., Comfort level will be maintained., Respiratory function will remain adequate., Patient/ family verbilizes understanding of procedure., Procedure tolerated without complication., Recovers from procedure without complications.. 8:35:38 Patient received from Outpatients to IR Alert and oriented. Tansferred to table in Supine position. 8:35:42 Signed procedure consent form obtained from guardian. 8:36:02 H&P Date Dictated: 11/15/2020 Within 30 days and on chart., H&P Addendum completed by physician on day of procedure. (MUST COMPLETE FOR ALL OUTPATIENTS). 8:36:05 Pre-procedure instructions explained to patient. 8:36:05 Pre-op teaching completed and patient verbalized understanding. 8:36:07 Family unavailable. 8:36:10 Patient NPO since Midnight. 8:37:16 Patient allergic to Iodine 8:39:15 Patient allergic to Other allergyatoristatin, hydrocodone,shellfish,lutein,multivitamin 8:39:19 Is the patient allergic to Iodine/contrast media? Yes. 8:39:23 Was the patient premedicated? Yes 8:39:36 Is patient on blood thinner?Yes 8:39:43 Patient diabetic? Yes. 8:40:50 - 8:40:52 ----Pre-sedation anethsthesia assessment.----see anesthesia notes for monitoring of patient during procedure 8:41:41 - 8:41:50 Right groin area was prepped with chlora-prep and draped in sterile fashion 8:42:01 Right Arm area was prepped with chlora-prep and draped in sterile fashion 8:42:06 Alarms reviewed by Renato Osborn 8:42:25 5) <15 or on dialysis Very severe, or end stage kidney failure. 8:42:30 Fire Safety Assessment: A--An alcohol-based skin anteseptic being used preoperatively., C--Open oxygen or nitrous oxide is being used. 8:42:34 - 8:55:46 Physician arrived 8:55:47 --------ALL STOP TIME OUT------ 8:55:48 Final Timeout: patient, procedure, and site verified with staff and physician. All members of the team are in agreement. 8:56:13 Procedure started. 8:56:13 Full Disclosure recording started 8:56:22 Local anesthetic to right femoral vein with Lidocaine 1% by Prince Mcduffie MD.INITIAL ACCESS ONLY 9:00:53 SHEATH 6FR Destination (RSR01) opened to sterile field. 9:01:37 Heparin Bolus 5000 units I.V. was administered by Prince Mcduffie MD; used for procedure; Verbal order read back and verified. 9:08:11 A Angiodynamics SOS OMNI 2 NON B 5FR 65CM catheter ([id number]) was advanced over the wire and used for . 9:20:07 CXI Catheter 90cm (J59213) opened to sterile field. 9:25:01 GLIDE WIRE GOLD .018 (TD3710) opened to sterile field. 9:25:10 COPILOT Valve Control (2104275) opened to sterile field. 9:32:24 CXI SUPPORT .018 150CM ANG catheter (O97956) opened to sterile field. 9:32:33 CHOICE PT Extra Support J 300cm guide wire ([id number]) opened to steril e field. 9:33:10 Heparin Bolus 2000 units I.V. was administered by Prince Mcduffie MD; used for procedure; Verbal order read back and verified. 9:38:02 ASTATO 30 300cm wire ([id number]) opened to sterile field. 9:50:29 Vaughn 180 wire (H77940) opened to sterile field. 9:50:36 SHEATH 7FR Destination (RSR04) opened to sterile field. 9:53:46 Trailblazer 0.035 90cm catheter (ASC-035-090) opened to sterile field. 10:11:08 Procedure ended.(Physican Out) 10:11:30 Fluoroscopy time 32.80 minutes. 10:11:36 Fluoroscopy dose: 742 mGy 10:11:36 Flurop Dose total: 742 10:11:48 Contrast amount:Isovue 300 80ml. 10:13:04 Procedure and supply charges have been captured, reviewed, submitted an d are correct. 10:15:19 Report given to PCU. Device Usage Item Name Manufacture Quantity Catalog Number Hospital Part Current Minimal Lot# / Charge Number Stock Stock Serial# Code [facility] [employer] 1 [id number] 586997 559259 5 .035 145 glide wire ([id number]) Tegaderm 4 x 3M 1 1626W 904235 551895 535896 5 4 (1626W) Sterile Cardinal 1 [id number] 484362 337166 5 Angiographic Health Pack Bag Decanter Microtek 1 2001S 101844 59514 471493 5 (2001S) Medical Inc[employer] Merit Impress [facility] 1 [id number] 387083 022566 5 KA2 5Fr 65CM catheter (51530HR0) SHEATH 6FR Terumo 1 RSR01 590243 39410 895868 5 Destination (RSR01) Angiodynamics Angiodynamics 1 [id number] 756875 54261 924025 5 SOS OMNI 2 NON B 5FR 65CM catheter ([id number]) CXI Catheter [employer] 1 O06224 384094 156946 983922 5 [id number] 90cm (X16875) GLIDE WIRE Terumo 1 CC6167 990243 543410 5 GOLD .018 (XO4217) COPILOT Valve Rushing 1 6051939 178086 753210 992274 5 Control Vascular (6420680) CXI SUPPORT [employer] 1 Y76745 360482 706313 193584 5 .018 150CM ANG catheter (T01358) CHOICE PT [place] 1 [id number] 638576 068649 729775 5 Extra Support Scientific J 300cm guide wire ([id number]) ASTATO 30 Cardiovascular 1 [id number] 703704 124062 214813 5 300cm wire systems ([id number]) Vaughn 180 [employer] 1 K76032 340421 005616 8736254 5 wire (X53140) SHEATH 7FR Terumo 1 RSR04 156700 497764 837077 5 Destination (RSR04) Trailblazer Medtronic 1 ASC-035-090 250290 3184324 534898 5 0.035 90cm catheter (ASC-035-090) Signature Audit Jupiter Stage Time Signature Unsigned Intra-Procedure 11/15/2020 Eneida Lopez 10:17:22 AM RT(R) [facility] [address] [place] [address]
[2020-11-15 06:14] LABS: ANION GAP 11.3 mmol/L (8-16); CALCIUM 9.4 mg/dL (8.5-10.1); CARBON DIOXIDE 29.3 mmol/L (21.0-32.0); CREATININE - SERUM 6.1 mg/dL (0.6-1.3); POTASSIUM - SERUM 3.6 mmol/L (3.5-5.1)
[2020-11-15 06:30] LABS: BASOPHILS 0.2 % (0-2); EOSINOPHILS 2.6 % (0-7); HEMATOCRIT 27.3 % (36.0-48.0); IMMATURE GRANULOCYTES 0.2 % (0-5); LYMPHOCYTE ABS# 1.23 10x3/uL (1.18-3.74); MCH 31.4 pg (26.0-34.0); MCV 95.1 fL (80.0-100.0); MEAN PLATELET VOLUME 9.2 fL (7.4-10.4); MONOCYTES 9.9 % (2-11); NEUTROPHIL ABS# 2.74 10x3/uL (1.56-6.13); NEUTROPHILS 60.1 % (40-80); PLATELET COUNT 295 10x3/uL (130-400); RBC 2.87 10x6/uL (4.00-5.40); RDW 12.7 % (11.5-14.5); WBC 4.6 10x3/uL (4.8-10.8)
[2020-11-15 06:41] VITALS: BP 133/69; Ht 157.5 cm; Wt 88.2 kg
[2020-11-15 06:56] LABS: INR 1.14 (0.85-1.17); PROTIME 13.5 SECONDS (11.6-15.0)
[2020-11-15 06:57] LABS: APTT 32.9 SECONDS (22.8-39.4)
--- NOTE | 2020-11-15 16:17 | NUR ---
1101 PT'S VITAL SIGNS ARE BEING DOCUMENTED ON POST PROCEDURE FORM AND PART OF PAPER CHART. 1300 IV DC'D. CATHETER TIP INTACT. NO BLEEDING AT SITE AFTER HOLDING PRESSURE. COBAN DRESSING APPLIED. REVIEWED DISCHARGE INSTRUCTIONS WITH PT AND HER CAREGIVER. BOTH VOICE UNDERSTANDING OF THE INSTRUCTIONS. CAREGIVER HAS DISCHARGE PACKET IN POSSESSION.
== END 2020-11-15 13:22 | disposition home or self-care (01) ==
LOC: D.SP 05:42 → D.RAD 08:00 → D.SP 08:00
PROVIDERS: Radiology Diagnostic Radiology; ATTEND Internal Medicine Nephrology
DX: N18.6 End stage renal disease (principal); R60.9 Edema, unspecified; I87.1 Compression of vein; I50.9 Heart failure, unspecified; I51.9 Heart disease, unspecified; I10 Essential (primary) hypertension; E11.9 Type 2 diabetes mellitus without complications